=== PATIENT | female | born 1985 | race Caucasian/White ===

== ENCOUNTER → 2018-12-24 | Outpatient (CLI) | payer MEDICARE, MEDICAID ==
[~2018-12-24] MED LIST: AMOX500T PO; DOCU5LIQ PO; IBUP600T26 PO; MAPA500T17 PO; MOM30SS PO; PRENTAB9 PO; TOPA100T PO; TOPA25TA PO; TRIL600T PO; ZANT150T PO
[2018-12-24 09:46] LABS: HEMOGLOBIN 13.8 g/dl (12.0-15.5); MEAN CORPUSCULAR HEMOGLOBIN 28.4 pg (27.0-33.0); MEAN CORPUSCULAR HGB CONC 32.9 g/dl (32.0-36.5); MEAN CORPUSCULAR VOLUME 86.4 fl (80.0-96.0); PLATELET COUNT, AUTOMATED 317 10^3/uL (150-450); RED BLOOD COUNT 4.86 10^6/uL (4.00-5.40); WHITE BLOOD COUNT 7.2 10^3/uL (4.0-10.0)
[2018-12-24 10:11] LABS: ALBUMIN 4.3 GM/DL (3.2-5.2); ALT/SGPT 24 U/L (12-78); BILIRUBIN,TOTAL 0.4 MG/DL (0.2-1.0); BLOOD UREA NITROGEN 9 MG/DL (7-18); CALCIUM LEVEL 8.9 MG/DL (8.5-10.1); CARBON DIOXIDE LEVEL 28 MEQ/L (21-32); CHLORIDE LEVEL 108 MEQ/L (98-107); CHOLESTEROL LEVEL 125 MG/DL (<200); CHOLESTEROL RISK RATIO 3.378 (<5); CREATININE FOR GFR 0.81 MG/DL (0.55-1.30); FREE T4 1.13 NG/DL (0.76-1.46); GLOMERULAR FILTRATION RATE > 60.0 (>60); GLUCOSE, FASTING 94 MG/DL (70-100); HDL CHOLESTEROL 37 MG/DL (>40); LDL CHOLESTEROL 70 MG/DL (<100); NON-HDL-C 88 MG/DL; POTASSIUM SERUM 4.1 MEQ/L (3.5-5.1); SODIUM LEVEL 141 MEQ/L (136-145); TRIGLYCERIDES LEVEL 89 MG/DL (<150)
[2018-12-24 10:14] LABS: TOTAL 25(OH) VITAMIN D 17.9 NG/ML (30.0-100.0)
== END ==
LOC: M LAB 09:11
PROVIDERS: ATTEND Nurse Practitioner Family
DX: K52.9 Noninfective gastroenteritis and colitis, unspecified (principal); E66.9 Obesity, unspecified; E55.9 Vitamin D deficiency, unspecified; E07.9 Disorder of thyroid, unspecified

== ENCOUNTER → 2019-01-04 | Outpatient (REF) | payer MEDICARE, MEDICAID | LOC: M SFHCPLAZ 11:06 | PROVIDERS: ATTEND Nurse Practitioner Family | DX: K52.9 Noninfective gastroenteritis and colitis, unspecified (principal) ==

== ENCOUNTER 2019-04-17 16:21 | Emergency (ER) | payer MEDICARE, MEDICAID ==
[~2019-04-17] VITALS: Ht 165.1 cm; Wt 82.7 kg
[2019-04-17 16:22] VITALS: BP 134/72
[2019-04-17] MEDS ORDERED: TRIL150T PO (16:29)
--- NOTE | 2019-04-17 20:10 | REP ---
LEFT FOREARM, TWO VIEWS: There is no evidence of an acute fracture, dislocation or intrinsic bone disease. IMPRESSION: No fracture or dislocation. Electronically Signed by Eulalio Garcia MD 04/18/2019 10:02 A
--- NOTE | 2019-04-18 08:31 | REP ---
LEFT WRIST, FOUR VIEWS: HISTORY: None. There is no acute fracture or dislocation. The joint spaces are normal in appearance. IMPRESSION:There is no acute fracture or dislocation. Unreviewed
== END 2019-04-17 20:10 | disposition home or self-care (01) ==
LOC: M ED 16:21
DX: S63.522A Sprain of radiocarpal joint of left wrist, initial encounter (principal); S63.512A Sprain of carpal joint of left wrist, initial encounter; W18.09XA Striking against other object with subsequent fall, initial encounter; Y92.098 Other place in other non-institutional residence as the place of occurrence of the external cause; R00.0 Tachycardia, unspecified; G43.909 Migraine, unspecified, not intractable, without status migrainosus; K50.90 Crohn's disease, unspecified, without complications; Z88.8 Allergy status to other drugs, medicaments and biological substances; Z88.1 Allergy status to other antibiotic agents; Z88.5 Allergy status to narcotic agent; Z91.030 Bee allergy status; Z79.899 Other long term (current) drug therapy

== ENCOUNTER → 2019-07-10 | Outpatient (REF) | payer MEDICARE, MEDICAID ==
[~2019-07-10] MED LIST changes: +TRIL150T PO
[2019-07-10 13:26] LABS: ALBUMIN 4.7 GM/DL (3.2-5.2); ALT/SGPT 14 U/L (12-78); BILIRUBIN,TOTAL 0.5 MG/DL (0.2-1.0); BLOOD UREA NITROGEN 15 MG/DL (7-18); CALCIUM LEVEL 10.2 MG/DL (8.5-10.1); CARBON DIOXIDE LEVEL 28 MEQ/L (21-32); CHLORIDE LEVEL 107 MEQ/L (98-107); CREATININE FOR GFR 0.89 MG/DL (0.55-1.30); GLOMERULAR FILTRATION RATE > 60.0 (>60); GLUCOSE, FASTING 87 MG/DL (70-100); MAGNESIUM LEVEL 2.2 MG/DL (1.8-2.4); POTASSIUM SERUM 4.3 MEQ/L (3.5-5.1); SODIUM LEVEL 141 MEQ/L (136-145); TOTAL PROTEIN 8.1 GM/DL (6.4-8.2)
[2019-07-10 13:28] LABS: HEMATOCRIT 48.5 % (36.0-47.0); HEMOGLOBIN 15.7 g/dl (12.0-15.5); MEAN CORPUSCULAR HGB CONC 32.4 g/dl (32.0-36.5); MEAN CORPUSCULAR VOLUME 89.5 fl (80.0-96.0); PLATELET COUNT, AUTOMATED 346 10^3/uL (150-450); RED BLOOD COUNT 5.42 10^6/uL (4.00-5.40)
[2019-07-10 14:01] LABS: ERYTHROCYTE SEDIMENTATION RATE 5 mm/hr (0-20)
== END ==
LOC: M SFHCPLAZ 10:59
PROVIDERS: ATTEND Nurse Practitioner Family
DX: E55.9 Vitamin D deficiency, unspecified (principal); R51 Headache; R11.0 Nausea
CPT/HCPCS: 36415; 80053; 82306; 83735; 85027; 85652; G0463

== ENCOUNTER → 2019-10-13 | Outpatient (REF) | payer OTHER ==
[2019-10-13 12:44] LABS: ALBUMIN 4.4 GM/DL (3.2-5.2); ALT/SGPT 47 U/L (12-78); BILIRUBIN,TOTAL 0.4 MG/DL (0.2-1.0); BLOOD UREA NITROGEN 8 MG/DL (7-18); CALCIUM LEVEL 9.2 MG/DL (8.5-10.1); CARBON DIOXIDE LEVEL 31 MEQ/L (21-32); CHLORIDE LEVEL 106 MEQ/L (98-107); CREATININE FOR GFR 0.75 MG/DL (0.55-1.30); GLOMERULAR FILTRATION RATE > 60.0 (>60); GLUCOSE, FASTING 72 MG/DL (70-100); POTASSIUM SERUM 4.5 MEQ/L (3.5-5.1); SODIUM LEVEL 143 MEQ/L (136-145); TOTAL PROTEIN 7.4 GM/DL (6.4-8.2)
[2019-10-13 12:53] LABS: TOTAL 25(OH) VITAMIN D 31.3 NG/ML (30.0-100.0)
== END ==
LOC: M SFHCPLAZ 10:36
PROVIDERS: ATTEND Nurse Practitioner Family
DX: K21.9 Gastro-esophageal reflux disease without esophagitis (principal); E55.9 Vitamin D deficiency, unspecified

== ENCOUNTER → 2019-11-24 | Outpatient (CLI) | payer OTHER ==
--- NOTE | 2019-11-27 17:43 | ECGEPIP ---
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
== END ==
LOC: M EKG 09:45
PROVIDERS: ATTEND Orthopaedic Surgery Hand Surgery
DX: Z01.818 Encounter for other preprocedural examination (principal)

== ENCOUNTER → 2019-12-30 | Outpatient (REF) | payer OTHER | LOC: M PLALAB 09:07 | PROVIDERS: ATTEND Nurse Practitioner Family | DX: E55.9 Vitamin D deficiency, unspecified (principal) ==

== ENCOUNTER → 2020-01-16 | Outpatient (CLI) | payer OTHER ==
[~2020-01-16] MED LIST changes: +ACET-683 PO; +AMIT25TA PO; +AMIT75TA PO; +D-3-50003 PO; +LEVE750T5 PO; +ONDA8TAB10 PO; +PROT1TAB2 PO; +SUMA50TA2 PO; +VITA50005 PO
== END ==
LOC: M LABSMTC 10:07
PROVIDERS: ATTEND Anesthesiology
DX: Z01.818 Encounter for other preprocedural examination (principal); Z11.59 Encounter for screening for other viral diseases

== ENCOUNTER 2020-01-19 06:28 | Day surgery (SDC) | payer OTHER ==
[~2020-01-19] VITALS: Ht 165.1 cm; Wt 71.2 kg
[~2020-01-19 06:28] MED LIST changes: +LIDOCAINE 1% MDV 20ML VIAL SQ PRN; +LR 1,000 ML IV ONE
[2020-01-19] MEDS ORDERED: MIDAZOLAM INJ 2MG/2ML VIAL (J2250 PER 1MG) As Ordered ONE (07:37)
[2020-01-19] MEDS ORDERED: ONDANSETRON 4MG/2ML VIAL As Ordered ONE ×2 (07:37→08:55)
[2020-01-19] MEDS ORDERED: LIDOCAINE 2% 100MG/5ML SDV (FOR ANES.) As Ordered ONE (07:37)
[2020-01-19] MEDS ORDERED: fentaNYL 100 MCG/2 ML INJECTION (J3010) As Ordered ONE ×2 (07:37→08:55)
[2020-01-19] MEDS ORDERED: propofoL 200 MG/20 ML VIAL As Ordered ONE ×2 (07:37→08:27)
[2020-01-19] MEDS ORDERED: ACETAMINOPHEN 1000MG 100ML IV BTL (OFIRMEV) (J0131 PER 10MG) As Ordered ONE (07:37)
[2020-01-19] MEDS: BUPIVACAINE HCL 0.25% 30ML VIAL As Ordered ONE (07:56)
[2020-01-19] MEDS ORDERED: oxyCODONE 5MG TAB As Ordered ONE (08:55)
[2020-01-19] MEDS ORDERED: LR 1,000 ML IV SCH (09:00)
[2020-01-19] MEDS ORDERED: ONDANSETRON 4MG/2ML VIAL IV PRN (09:00)
[2020-01-19] MEDS: oxyCODONE 5MG TAB PO PRN ×3 (09:01→09:29)
[2020-01-19] MEDS: fentaNYL 100 MCG/2 ML INJECTION (J3010) IV PRN ×4 (09:01→09:22)
[2020-01-19] MEDS ORDERED: oxyCODONE 5MG TAB PO PRN (09:15)
[2020-01-19 10:30] VITALS: BP 126/80
--- NOTE | 2020-01-20 12:22 | RO ---
DATE OF PROCEDURE: 01/19/2020 PREOPERATIVE DIAGNOSES: Left carpal tunnel syndrome, cubital tunnel syndrome, de Quervain syndrome. POSTOPERATIVE DIAGNOSES: Left carpal tunnel syndrome, cubital tunnel syndrome, de Quervain syndrome. PROCEDURE: Left endoscopic carpal tunnel release, open cubital tunnel release, and open 1st dorsal extensor compartment release. SURGEON: Dr. Willy Monaco MOTOR ADJUSTER: None. ANESTHESIA: INDICATIONS: This is a 34-year-old female that failed nonoperative modes of treatment for the above syndromes. We discussed the risks and benefits of surgical release, including, but not limited to, infection, damage to surrounding structures, incomplete relief, and patient wishes to proceed. PREOPERATIVE ANTIBIOTICS: None. TOURNIQUET TIME: 30 minutes. COMPLICATIONS: None. BLOOD LOSS: Minimal. OPERATIVE DESCRIPTION: The patient was brought back to the operating room (OR) in the supine position. Underwent general anesthesia. The left arm was then prepped and draped in the usual fashion. We had time-out confirming site, side, and surgery. We then injected 20 mL of 0.25% Marcaine with epinephrine in a local block over the three incision areas. We then exsanguinated the limb, elevated the tourniquet to 250 mmHg. We made a transverse incision over the palmaris longus, retracted it radially, dissected sharply through the antebrachial fascia, used a two-prong skin hook to elevate, and then used the dilator and the synovial stripper. Then we entered the endoscopic camera. We identified the median nerve to see if we had a view. We then found the distal stump of the transverse carpal ligament and released this from distally to proximally. Once we were happy with complete release, we irrigated the wound thoroughly, closed with #3-0 Vicryl, #3-0 Prolene, Mastisol, Steris, gauze, and Tegaderm. We then turned our attention to the radial styloid and made a longitudinal incision along the radial styloid. Sharply dissected through subcutaneous tissues, careful to identify and preserve superficial sensory branch of the radial nerve. We then encountered the 1st dorsal extensor compartment. We released it, the most dorsal aspect, to prevent subluxation. We encountered a subsheath of the extensor pollicis longus (EPL), and this was released in addition. Once we had complete release, we irrigated the wound thoroughly, closed with #3-0 Vicryl, #3-0 Monocryl, Mastisol, Steris, and gauze. We then turned our attention to the elbow and made a longitudinal incision through the olecranon and medial epicondyle. Sharply dissected through subcutaneous tissue, careful to monitor for the medial antebrachial cutaneous nerve. We encountered the ulnar nerve at the proximal extent of the incision anterior to the triceps. We then released it proximally off the intermuscular septum and then distally through More ligament and through the superficial and deep fascia of the flexor carpi ulnaris (FCU). Once this was complete, we did a thorough neurolysis to elevate the nerve and then transpose it anteriorly over the medial epicondyle and closed More ligament behind it with a #3-0 Prolene, at which point we ranged the elbow. There were no sites of subluxation back into the tunnel or sites of compression. We irrigated the wound thoroughly, closed with #3-0 Vicryl, #3-0 Monocryl, Mastisol, Steris, gauze, and Tegaderm. We then placed a Kerlix over top and an Artis. We then deflated the tourniquet. Patient was awakened and taken to the postanesthesia care unit (PACU) in stable condition. POSTOPERATIVE PLAN: The patient will have pain control and range of motion. We will see her in 2 weeks to assess the incisions.
== END 2020-01-19 10:50 | disposition home or self-care (01) ==
LOC: M SDC 06:28
PROVIDERS: ATTEND Orthopaedic Surgery Hand Surgery
DX: G56.02 Carpal tunnel syndrome, left upper limb (principal); G56.22 Lesion of ulnar nerve, left upper limb; M65.4 Radial styloid tenosynovitis [de Quervain]; K21.9 Gastro-esophageal reflux disease without esophagitis; Z79.899 Other long term (current) drug therapy; Z91.030 Bee allergy status; Z88.8 Allergy status to other drugs, medicaments and biological substances; Z91.048 Other nonmedicinal substance allergy status
CPT/HCPCS: 25000; 29848; 64718; J0131; J2250; J2405; J3010

== ENCOUNTER → 2020-04-12 | Emergency (ER) | payer OTHER ==
[~2020-04-12] MED LIST changes: -LIDOCAINE 1% MDV 20ML VIAL SQ PRN; +LIDOCAINE 5% OINT 30 GM As Ordered ONE; +LIDOCAINE 5% OINT 30 GM ONE; -LR 1,000 ML IV ONE
--- NOTE | 2020-06-04 10:44 | REP ---
RIGHT ANKLE: FOUR VIEWS Report was delayed due to a malware attack on this facility. HISTORY: Injury. FINDINGS: Four views of the right ankle demonstrate mild anterolateral soft tissue swelling. Ankle mortise is intact. No fracture is seen. No subluxation noted. No opaque foreign body seen. IMPRESSION: Mild anterolateral soft tissue swelling. No acute bony abnormality. MTDD
--- NOTE | 2020-06-04 10:44 | REP ---
RIGHT FOOT Report was delayed due to a malware attack on this facility. HISTORY: Trauma. FINDINGS: Four views of the right foot show normal bones, joints, and soft tissue. No fracture or subluxation is seen. IMPRESSION: No fracture noted. MTDD
== END | disposition home or self-care (01) ==
LOC: M ED 16:30
DX: S99.911A Unspecified injury of right ankle, initial encounter (principal); S99.921A Unspecified injury of right foot, initial encounter; W11.XXXA Fall on and from ladder, initial encounter; Y92.9 Unspecified place or not applicable; Y93.9 Activity, unspecified; Y99.9 Unspecified external cause status; Z79.899 Other long term (current) drug therapy; Z88.8 Allergy status to other drugs, medicaments and biological substances

== ENCOUNTER 2020-07-26 21:40 | Emergency (ER) | payer OTHER ==
[~2020-07-26] VITALS: Ht 162.6 cm; Wt 78.2 kg
[~2020-07-26 21:40] MED LIST changes: -LIDOCAINE 5% OINT 30 GM As Ordered ONE; -LIDOCAINE 5% OINT 30 GM ONE
[2020-07-26] MEDS ORDERED: ONDANSETRON 4MG/2ML VIAL IV ONE (22:45)
[2020-07-26] MEDS ORDERED: KETOROLAC 30 MG/ML 1ML VIAL IV ONE (22:45)
[2020-07-26] MEDS ORDERED: NS 1,000 ML IV ONE (22:45)
[2020-07-26] MEDS ORDERED: SUCR1TAB56 (23:12)
[2020-07-26] MEDS ORDERED: KETO10TAB (23:12)
[2020-07-26] MEDS ORDERED: GABA-1171 (23:12)
[2020-07-26] MEDS ORDERED: SUMA50TA2 (23:12)
[2020-07-26 23:25] LABS: BASO % 0.3 % (0.0-1.0); EOS # 0.1 10^3/uL (0.0-0.5); EOS % 0.9 % (0.0-3.0); HEMATOCRIT 38.3 % (36.0-47.0); HEMOGLOBIN 12.4 g/dl (12.0-15.5); LYMPH # 1.5 10^3/uL (1.5-5.0); LYMPH % 17.3 % (24.0-44.0); MEAN CORPUSCULAR HEMOGLOBIN 28.4 pg (27.0-33.0); MEAN CORPUSCULAR HGB CONC 32.4 g/dl (32.0-36.5); MEAN CORPUSCULAR VOLUME 87.8 fl (80.0-96.0); MONO # 0.5 10^3/uL (0.0-0.8); MONO % 5.7 % (0.0-5.0); NEUTROPHILS # 6.7 10^3/uL (1.5-8.5); NEUTROPHILS % 75.6 % (36.0-66.0); PLATELET COUNT, AUTOMATED 256 10^3/uL (150-450); RED BLOOD COUNT 4.36 10^6/uL (4.00-5.40); WHITE BLOOD COUNT 8.9 10^3/uL (4.0-10.0)
[2020-07-26 23:56] LABS: ALBUMIN 3.8 GM/DL (3.2-5.2); ALT/SGPT 11 U/L (12-78); BILIRUBIN,DIRECT 0.1 MG/DL (0.0-0.2); BILIRUBIN,TOTAL 0.3 MG/DL (0.2-1.0); BLOOD UREA NITROGEN 8 MG/DL (7-18); CALCIUM LEVEL 8.8 MG/DL (8.5-10.1); CARBON DIOXIDE LEVEL 29 MEQ/L (21-32); CHLORIDE LEVEL 110 MEQ/L (98-107); CREATININE FOR GFR 0.65 MG/DL (0.55-1.30); GLOMERULAR FILTRATION RATE > 60.0 (>60); GLUCOSE, FASTING 97 MG/DL (70-100); POTASSIUM SERUM 4.2 MEQ/L (3.5-5.1); SODIUM LEVEL 142 MEQ/L (136-145); TOTAL PROTEIN 6.5 GM/DL (6.4-8.2)
--- NOTE | 2020-07-27 00:27 | REPVR ---
PROCEDURE INFORMATION: Exam: US Nonobstetric Pelvis; Complete Exam date and time: 07/26/2020 11:53 PM Age: 34 years old Clinical indication: Pelvic pain; Additional info: Llq pain, R/O ovarian cyst TECHNIQUE: Imaging protocol: Transabdominal pelvic nonobstetric ultrasound. Complete exam. Real time ultrasound with image documentation. COMPARISON: CR Pelvis, complete 11/08/2014 5:28 PM FINDINGS: Uterus/cervix: Uterus measures 8.8 x 4.5 x 5.8 cm. No uterine masses are seen. Endometrium measures 9 mm. No endometrial masses or fluid. Right adnexa: Ovary is normal. No mass. Normal blood flow. Left adnexa: 11 mm follicle in the left ovary. Left ovary is otherwise with normal blood flow. Intraperitoneal space: No intraperitoneal free fluid. IMPRESSION: 1. Small follicle in the left ovary. 2. Unremarkable pelvic ultrasound. Electronically signed by: Abdoulaye Waldron On 07/27/2020 00:26:54 AM
[2020-07-27] MEDS ORDERED: SIME180C PO (01:13)
--- NOTE | 2020-07-27 01:14 | REPVR ---
PROCEDURE INFORMATION: Exam: XR Complete Acute Abdomen Series Exam date and time: 07/27/2020 1:04 AM Age: 34 years old Clinical indication: Abdominal pain; Acute; Additional info: Llq pain, crohns dz TECHNIQUE: Imaging protocol: XR complete acute abdomen series, including 2 or more views of the abdomen and a single view chest. COMPARISON: No relevant prior studies available. FINDINGS: Lungs: Normal. No consolidation. Pleural space: Normal. No pneumothorax. Heart/Mediastinum: Normal. No cardiomegaly. Gastrointestinal tract: Moderate amount of fecal material throughout the colon. Nonobstructive bowel gas pattern. Intraperitoneal space: No organomegaly, mass effect, or free air. Bones/joints: Normal. No acute fracture. Soft tissues: Normal. Cosmetic piercings are noted. IMPRESSION: Mild constipation. Electronically signed by: Abdoulaye Waldron On 07/27/2020 01:13:48 AM
[2020-07-27 01:33] VITALS: BP 131/76
== END 2020-07-27 01:38 | disposition home or self-care (01) ==
LOC: M ED 21:40
DX: R10.32 Left lower quadrant pain (principal); Z79.899 Other long term (current) drug therapy; Z88.1 Allergy status to other antibiotic agents; Z88.8 Allergy status to other drugs, medicaments and biological substances; Z91.030 Bee allergy status
CPT/HCPCS: 74021; 76830; 76856; 80048; 80076; 81001; 85025; 87086; 93976; 96361; 96374; 99284; J1885; J2405

== ENCOUNTER → 2020-08-10 | Outpatient (CLI) | payer OTHER ==
[~2020-08-10] MED LIST changes: +GABA-1171; +KETO10TAB; +SIME180C PO; +SUCR1TAB56; +SUMA50TA2
[2020-08-10 12:50] LABS: BASO % 0.7 % (0.0-1.0); EOS # 0.1 10^3/uL (0.0-0.5); EOS % 1.1 % (0.0-3.0); HEMATOCRIT 37.5 % (36.0-47.0); LYMPH # 1.1 10^3/uL (1.5-5.0); LYMPH % 19.7 % (24.0-44.0); MEAN CORPUSCULAR HEMOGLOBIN 28.6 pg (27.0-33.0); MEAN CORPUSCULAR VOLUME 89.3 fl (80.0-96.0); MONO # 0.4 10^3/uL (0.0-0.8); MONO % 7.2 % (0.0-5.0); NEUTROPHILS # 3.9 10^3/uL (1.5-8.5); NEUTROPHILS % 70.9 % (36.0-66.0); PLATELET COUNT, AUTOMATED 260 10^3/uL (150-450); WHITE BLOOD COUNT 5.5 10^3/uL (4.0-10.0)
[2020-08-10 13:26] LABS: ALBUMIN 3.9 GM/DL (3.2-5.2); ALT/SGPT 15 U/L (12-78); AMYLASE 37 U/L (25-115); BILIRUBIN,TOTAL 0.7 MG/DL (0.2-1.0); BLOOD UREA NITROGEN 6 MG/DL (7-18); CARBON DIOXIDE LEVEL 29 MEQ/L (21-32); CHLORIDE LEVEL 106 MEQ/L (98-107); CREATININE FOR GFR 0.68 MG/DL (0.55-1.30); GLOMERULAR FILTRATION RATE > 60.0 (>60); GLUCOSE, FASTING 86 MG/DL (70-100); LIPASE 108 U/L (73-393); POTASSIUM SERUM 4.2 MEQ/L (3.5-5.1); SODIUM LEVEL 139 MEQ/L (136-145); TOTAL PROTEIN 6.9 GM/DL (6.4-8.2)
[2020-08-10 14:16] LABS: APPEARANCE, URINE HAZY (CLEAR); BACTERIA, URINE AUTO 1+ (NEGATIVE); BILIRUBIN, URINE AUTO NEGATIVE (NEGATIVE); BLOOD, URINE BLOOD NEGATIVE (NEGATIVE); COLOR, URINE YELLOW (YELLOW); GLUCOSE, URINE (UA) AUTO NEGATIVE (NEGATIVE); KETONE, URINE AUTO TRACE mg/dL (NEGATIVE); LEUKOCYTE ESTERASE, URINE AUTO 1+ (NEGATIVE); MUCUS, URINE SMALL (NEGATIVE); NITRITE, URINE AUTO NEGATIVE (NEGATIVE); PROTEIN, URINE AUTO NEGATIVE (NEGATIVE); RBC, URINE AUTO 1 /HPF (0-3); SPECIFIC GRAVITY URINE AUTO 1.013 (1.002-1.035); SQUAMOUS EPITHELIAL CELL UR AU 3 /HPF (0-6); UROBILINOGEN, URINE AUTO 0.2 mg/dL (0.0-2.0); WBC, URINE AUTO 1 /HPF (0-3)
== END ==
LOC: M LAB 11:59
PROVIDERS: ATTEND Nurse Practitioner Family
DX: R10.30 Lower abdominal pain, unspecified (principal); R13.10 Dysphagia, unspecified; R30.0 Dysuria

== ENCOUNTER → 2020-08-20 | Outpatient (CLI) | payer OTHER ==
--- NOTE | 2020-08-20 10:27 | REP ---
INDICATION: R10.13 EPIGASTRIC PAIN. COMPARISON: Comparison right upper quadrant sonography May 08, 2013.. TECHNIQUE: Right upper quadrant sonography. FINDINGS: Scanning through the right upper quadrant of the abdomen demonstrates a normal sized, thin-walled gallbladder without evidence of stone or polyp. Common bile duct is normal measuring 0.5 cm in greatest diameter. No focal liver lesion is seen. Liver size is normal. No pancreatic abnormality is observed. No right renal abnormality is seen. There is no evidence of ascites. The right kidney measures 12.0 x 4.5 x 3.9 cm. IMPRESSION: Negative right upper quadrant sonography. <Electronically signed by Jhoan Cortes > 08/20/20 1020
== END ==
LOC: M WHC 09:32
PROVIDERS: ATTEND Nurse Practitioner Family
DX: R10.13 Epigastric pain (principal)

== ENCOUNTER → 2020-09-30 | Outpatient (CLI) | payer OTHER ==
[~2020-09-30] MED LIST changes: -AMIT25TA PO; +AMIT25TA17 PO
[2020-09-30 12:18] LABS: BASO % 0.8 % (0.0-1.0); EOS # 0.1 10^3/uL (0.0-0.5); EOS % 1.9 % (0.0-3.0); HEMATOCRIT 42.4 % (36.0-47.0); HEMOGLOBIN 13.6 g/dl (12.0-15.5); LYMPH # 1.3 10^3/uL (1.5-5.0); LYMPH % 26.3 % (24.0-44.0); MEAN CORPUSCULAR HEMOGLOBIN 28.4 pg (27.0-33.0); MEAN CORPUSCULAR HGB CONC 32.1 g/dl (32.0-36.5); MEAN CORPUSCULAR VOLUME 88.5 fl (80.0-96.0); MONO # 0.3 10^3/uL (0.0-0.8); MONO % 6.7 % (0.0-5.0); NEUTROPHILS # 3.1 10^3/uL (1.5-8.5); NEUTROPHILS % 63.9 % (36.0-66.0); PLATELET COUNT, AUTOMATED 285 10^3/uL (150-450); RED BLOOD COUNT 4.79 10^6/uL (4.00-5.40); WHITE BLOOD COUNT 4.8 10^3/uL (4.0-10.0)
[2020-09-30 12:30] LABS: C REACTIVE PROTEIN QUANTITATIV < 0.30 MG/DL (0.00-0.30); RHEUMATOID FACTOR QUANT < 10.0 IU/ML (<15.0); URIC ACID 4.8 MG/DL (2.6-6.0)
[2020-09-30 13:03] LABS: ERYTHROCYTE SEDIMENTATION RATE 4 mm/hr (0-20)
[2020-10-06 15:12] LABS: ANTINUCLEAR ANTIBODIES DIRECT Negative (Negative); HLA-B27 Negative (.); Lyme Disease IgG/IgM Antibodie <0.91 ISR (0.00-0.90); Lyme Disease IgM Ab Quantitati <0.80 index (0.00-0.79)
== END ==
LOC: M PLALAB 09:03
PROVIDERS: ATTEND Physician Assistant Surgical
DX: S93.401D Sprain of unspecified ligament of right ankle, subsequent encounter (principal); X58.XXXD Exposure to other specified factors, subsequent encounter; Y92.89 Other specified places as the place of occurrence of the external cause; Y93.89 Activity, other specified; Y99.8 Other external cause status

== ENCOUNTER 2020-11-01 11:21 | Emergency (ER) | payer OTHER ==
--- OUTSIDE RECORDS SUMMARY | 2020-11-01 12:11 | CCD | Continuity of Care Document ---
Author Author Avis TAM PA-C Organization Unknown Address [address] [address] Phone [phone] Care Team Providers Care Rust Proofer Name Role Phone Shawnee Rivas DEANDRE AUTM [phone] CathyalexandraduglasMilagros mottadi Kimberly PHILLIP-C AUTM Problems Active Problems Provider Date Contusion of hand Onset: 07/01/1999 Essential hypertension Nae Martell PA-C Onset: 04/21 Social History Type Date Description Comments Sex Unknown ETOH Use Denies alcohol use Tobacco Use Start: Unknown Denies Smoking Allergies, Adverse Reactions, Alerts Active Allergies Reaction Severity Comments Date Ultram 04/21/2019 Cortisporin 04/21/2019 Neosporin Ointment 9 Reglin 07/13/2020 Medications Active Medications SIG Qnty Indications Ordering Provide r Date Gabapentin 100mg Capsules 1 po at bedtime for 1 week, then increase to 1 tab po bid for 2nd week, then increase to 1 tab po tid for 3rd week 60caps M54.5 Aryan Tam MD 0 Keppra 750mg Tablets Unknown Nortriptyline HCL 75mg Capsules Unknown History Medications Bactrim 400-80mg Tablets take 1 by mouth twice a day for 10 days 20tabs S93.401D Gerard Blackmon MD 1 - 07/13/2020 Immunizations Description No Information Available Vital Signs Date Vital Result Comment 07/13/2020 10:27am Body Temperature 97.5 F Height 65 inches 5'5" Weight 152.00 lb BMI (Body Mass Index) 25.3 kg/m2 06/15/2020 8:37am Body Temperature 96.3 F Results Test Acquired Date Facility Test Result H/L Range Note CBC With Differential 09/30/2020 [facility] [address] [place] [address] [phone] - White Blood Count 4.8 10 Normal 4.0-10.0 Red Blood Count 4.79 10 Normal 4.00-5.40 Hemoglobin 13.6 g/dL Normal 12.0-15.5 Hematocrit 42.4 % Normal 36.0-47.0 Mean Corpuscular Volume 88.5 fl Normal 80.0-96.0 Mean Corpuscular Hemoglobin 28.4 pg Normal 27.0-33.0 Mean Corpuscular HGB Conc 32.1 g/dL Normal 32.0-36.5 Red Cell Distribution Width 12.7 % Normal 11.5-14.5 Platelet Count, Automated 285 10 Normal 150-450 Neutrophils % 63.9 % Normal 36.0-66.0 Lymph % 26.3 % Normal 24.0-44.0 Morris % 6.7 % High 0.0-5.0 Eos % 1.9 % Normal 0.0-3.0 Baso % 0.8 % Normal 0.0-1.0 Immature Granulocyte % 0.4 % Normal 0-3.0 Nucleated Red Blood Cell % 0.0 % Normal 0-0 Neutrophils # 3.1 10 Normal 1.5-8.5 Lymph # 1.3 10 Low 1.5-5.0 Morris # 0.3 10 Normal 0.0-0.8 Eos # 0.1 10 Normal 0.0-0.5 Baso # 0.0 10 Normal 0.0-0.2 Laboratory test finding 09/30/2020 [facility] [address] [place] [address] [phone] - C Reactive Protein Quantitativ < 0.30 mg/dL Normal 0.0 0-0.30 1 Erythrocyte Sedimentation Rate 4 mm/hr Normal 0-20 Laboratory test finding 09/30/2020 [facility] [address] [place] [address] [phone])- - Rheumatoid Factor Quant < 10.0 IU/mL Normal <15.0 2 Uric Acid 4.8 mg/dL Normal 2.6-6.0 3 1 note:<nlbl:demographic_chang ed> 2 note:<nlbl:demographic_chang ed> 3 note:<nlbl:demographic_chang ed> Procedures Date Code Description Status 07/23/2020 74348 X-Ray Spine Lumbosacral Complete Inc Bending Views Min Of 6 Completed 07/13/2020 01772 Nerve Conduction 9-10 Studies Co mpleted 07/13/2020 89687 Needle Electromyography,Complete Five Or More Muscles Studied Completed 06/11/2020 19876 Apply Cast Short Arm Completed 06/07/2020 92263 MRI Lower Extremity Any Joint Co mpleted 06/07/2020 79694 MRI Lower Extremity Other Than J oint Completed 04/20/2020 99152 X-Ray Foot Complete Completed 04/20/2020 86158 X-Ray Ankle Complete Completed 04/13/2020 30178 X-Ray Foot Complete Completed 04/13/2020 27604 X-Ray Ankle Complete Completed Medical Devices Description No Information Available Encounters Type Date Location Provider Dx Diagnosis [facility] S93.401 D Sprain of unspecified ligament of right ankle, subs encntr S93.601D Unspecified sprain of right foot, subsequent encounter M54.17 Radiculopathy, lumbosacral r egion 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 M25.532 Pain in left wrist M79.642 Pain in left hand M79.632 Pain in left forearm Office Visit 07/13/2020 [facility] M54.5 Low back pain R20.2 Paresthesia of skin M54.16 Radiculopathy, lumbar region Office Visit 06/22/2020 4:[place]p [facility] S93.401 D Sprain of unspecified ligament of right ankle, subs encntr S93.601D Unspecified sprain of right foot, subsequent encounter L03.115 Cellulitis of right lower li mb Office Visit 06/15/2020 [facility] S93.401 D Sprain of unspecified ligament of right ankle, subs encntr S93.601D Unspecified sprain of right foot, subsequent encounter L03.115 Cellulitis of right lower li mb Office Visit 06/11/2020 3:00p Nicole Andres P.A. M25.532 Pain in left wrist M79.642 Pain in left hand M79.632 Pain in left forearm Z47.89 Encounter for other orthoped ic aftercare Office Visit 04/26/2020 11:30a Nicole Andres P.A. M79.642 Pain in left hand M25.532 Pain in left wrist M79.632 Pain in left forearm Office Visit 04/20/2020 8[place] S93.401 D Sprain of unspecified ligament of right ankle, subs encntr S93.601D Unspecified sprain of right foot, subsequent encounter Office Visit 04/13/2020 10:[place]a [facility] S93.401 A Sprain of unspecified ligament of right ankle, init encntr S93.601A Unspecified sprain of right foot, initial encounter Assessments Date Code Description Provider 09/30/2020 S93.401D Sprain of unspecifie d ligament of right ankle, subsequent encounter Vanita Tam PA-C 09/30/2020 S93.601D Unspecified sprain of right foot , subsequent encounter Vanita Tam PA-C 09/30/2020 M54.17 Radiculopathy, lumbosacral regio n Vanita Tam PA-C 09/30/2020 M43.07 Spondylolysis, lumbosacral regio n Vanita Tam PA-C 07/23/2020 M51.36 Other intervertebral disc degene ration, lumbar region Vanita Tam PA-C 07/23/2020 M54.17 Radiculopathy, lumbosacral regio n SONIA Decker-C 07/16/2020 M25.532 Pain in left wrist Jaret Penaloza, P.A. 07/16/2020 M79.642 Pain in left hand Jaret rodriguez, P.A. 07/16/2020 M79.632 Pain in left forearm Jaret Andres P.A. 07/13/2020 M54.5 Low back pain Meng Cardozo MD 07/13/2020 R20.2 Paresthesia of skin Meng mcdowell MD 07/13/2020 M54.16 Radiculopathy, lumbar region How alexandra Cardozo MD 06/22/2020 S93.401D Sprain of unspecifie d ligament of right ankle, subsequent encounter VINAYAK DeckerC 06/22/2020 S93.601D Unspecified sprain of right foot , subsequent encounter VINAYAK DeckerC 06/22/2020 L03.115 Cellulitis of right lower limb SONIA Barclay-C 06/15/2020 S93.401D Sprain of unspecifie d ligament of right ankle, subsequent encounter VINAYAK DeckerC 06/15/2020 S93.601D Unspecified sprain of right foot , subsequent encounter VINAYAK DeckerC 06/15/2020 L03.115 Cellulitis of right lower limb SONIA Barclay-C 06/11/2020 M25.532 Pain in left wrist Jaret Penaloza, P.A. 06/11/2020 M79.642 Pain in left hand Jaret rodriguez, P.A. 06/11/2020 M79.632 Pain in left forearm Jaret Andres, P.A. 06/11/2020 Z47.89 Encounter for other orthopedic a ftercare Jaret Andres, P.A. 06/07/2020 S93.601A Unspecified sprain of right foot , initial encounter Carolina Perkins MD 06/07/2020 S93.401A Sprain of unspecifie d ligament of right ankle, initial encounter Carolina Perkins MD 06/07/2020 S93.401A Sprain of unspecifie d ligament of right ankle, initial encounter MRI 06/07/2020 S93.601A Unspecified sprain of right foot , initial encounter MRI 04/26/2020 M25.532 Pain in left wrist Jaret Penaloza, P.A. 04/26/2020 M79.642 Pain in left hand Jaret rodriguez P.A. 04/26/2020 M25.532 Pain in left wrist Jaret Penaloza, P.A. 04/26/2020 M79.632 Pain in left forearm Jaret Andres, P.A. 04/20/2020 S93.401D Sprain of unspecifie d ligament of right ankle, subsequent encounter Vanita Tam PA-C 04/20/2020 S93.601D Unspecified sprain of right foot , subsequent encounter Vanita Tam PA-C 04/13/2020 S93.401A Sprain of unspecifie d ligament of right ankle, initial encounter Vanita Tam PA-C 04/13/2020 S93.601A Unspecified sprain of right foot , initial encounter Vanita Tam PA-C Plan of Treatment Future Appointment(s):* 10/21/2020 2:00 pm - Vanita Tam PA-C at [facility] 09/30/2020 - Vanita Tam PA-C* S93.401D Sprain of unspecified ligament of right ankle, subsequent encounter* Follow up:* with [facility] in 3-4 weeks TELEMED * S93.601D Unspecified sprain of right foot, subsequent encounter * M54.17 Radiculopathy, lumbosacral region * 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 LD Created [address] [place] [address] [address] [place] [phone] Fish, Vanita L, PA-C REF NO AUTH REQUIRED FOR REF TO DR VERA F OR EMG TO TRANS NT Created [address] [address] [phone] Vanita Tam PA-C EMG NO AUTH REQUIRED TO SCHEDULING NT Creat ed [address] [address] [phone] Vanita Tam PA-C MRI APPROVED PER [employer] FOR MRI OF RIGHT ANKLE (43358) TO X-RAY. DG Created [address] [address] [phone] Jaret Andres, SONIA [id number] [place] Wrist W/Spica ([employer]). No authorization required. Covered in full. AC Created [address] [address] [phone] Vanita Tam PA-C MRI APPROVED PER [employer] FOR MRI OF RIGHT FOOT (82088) TO X- RAY. DG Created [address] [address] [phone]
--- OUTSIDE RECORDS SUMMARY | 2020-11-01 12:11 | CCD | Summary of Care ---
Author Author [facility] Organization [facility] Address Unknown Phone Unavailable Care Team Providers Care [employer] Name Role Phone Shawnee Rivas PCP Reason for Visit * Procedure/Treatment (STAT) Referred By Contact Referred To Contact Status Reason Specialty Diagnoses / Procedures Alejandro Mills MD [address] [place] [address], [address] [place] [phone] Email: [email or web address] [address] [place] [address] Authorized Specialty Services Neurology / Diagnoses Required Infusion Therapy Intractable migraine with aura without status migrainosus Encounter Details Care Team Description Date Type Department Hortensia Conroy MD [address] [place] [address] [phone] Chronic migraine (Primary Dx) 10/25/2020 Procedure visit [facility] at [address] [place] [phone] Allergies Comments Active Allergy Reactions Severity Noted Date Throat swelling/lips/face Bee Venom Swelling High 05/16/2019 Neomycin-Bacitracin Rash Low 04/10/2019 Zn-Polymyx Metoclopramide Swelling 04/10/2019 Throat/mouth swelling Tramadol Hcl Swelling High 04/10/2019 documented as of this encounter (statuses as of 10/25/2020) Medications End Date Status Medication Sig Dispensed Refills Start Date Active omeprazole (PRILOSEC) 40 Take 40 mg by 2 01/16201 MG capsule mouth Two 9 Times Daily Active Cholecalciferol (VITAMIN Take 50,000 0 D) 2000 units tablet Units by mouth once a week Active Acetaminophen 500 MG Oral Take 1,000 mg 0 Tablet (TYLENOL) by mouth every 6 (six) hours as needed for Pain Active oxyCODONE-Acetaminophen 1 tablet as 0 5-325 MG Oral Tablet needed 0 (PERCOCET) Active Riboflavin 400 MG Oral Take 400 mg 90 each 3 CapsuleIndications: by mouth 0 Intractable migraine with daily aura without status migrainosus, Chronic migraine without aura without status migrainosus, not intractable Active Ondansetron HCl 4 MG Oral Take 1 tablet 20 tablet 12 Tablet by mouth 0 (ZOFRAN)Indications: every 8 Intractable migraine with (eight) hours aura without status as needed migrainosus, Chronic for Nausea migraine without aura without status migrainosus, not intractable Active Sucralfate 1 GM Oral Take 1 g by 0 Tablet (CARAFATE) mouth Three 0 times daily as needed 07/21/2021 Active Amitriptyline HCl 50 MG Take 1.5 45 tablet 11 Oral Tablet tablets by 0 (ELAVIL)Indications: mouth nightly Intractable migraine with aura without status migrainosus 07/21/2021 Active SUMAtriptan Succinate 50 Take 2 20 tablet 3 1 MG Oral Tablet tablets by 0 (IMITREX)Indications: mouth as Chronic migraine without needed for aura without status Migraine migrainosus, not intractable Active levETIRAcetam 750 MG Oral TAKE ONE 60 tablet 2 Tablet TABLET BY 1 (KEPPRA)Indications: MOUTH TWICE A Nonintractable epilepsy DAY without status epilepticus, unspecified epilepsy type documented as of this encounter (statuses as of 10/25/2020) Active Problems Problem Noted Date Medication overuse headache 07/29/2019 Concussion with loss of consciousness of 30 minutes o r less 07/29/2019 Family history of chromosomal abnormality 12/15/2013 Epilepsy Migraine with aura documented as of this encounter (statuses as of 10/25/2020) Social History Date Tobacco Use Types Packs/Day Years Used Never Smoker 0 Smokeless Tobacco: Never Used Drinks/Week oz/Week Comments Alcohol Use Not Currently Sex Assigned at Date Recorded Female 04/10/2019 1:31 PM EDT Date Recorded COVID-19 Exposure Response 10/25/2020 2:43 PM EST In the last month, have you been in contact with No / Unsure someone who was confirmed or suspected to have Coronavirus / COVID-19? documented as of this encounter Last Filed Vital Signs Not on filedocumented in this encounter Progress Notes * Hortensia Conroy MD - 10/25/2020 2:45 PM EST [facility] Date Of Service: 10/25/2020 Diagnosis: Chronic Migraine History: Avis is a 35 y.o. year old Female with chronic migraine headaches who has failed multiple medical interventions. This is her third Botox. Botox is giv ing her only few weeks of relief. Risk of Botox therapy were explained, including neck pain and/or weakness,headac he, eye lid droopiness, facial muscle weakness, and hypersensitivity. Patient u nderstands risks and wishes to proceed. The patient was advised that Botox Injec tion may not be effective in relieving the chronic headaches. The patient has f ton multiple interventions, so I agree that Botox is the most appropriate natalio tment. Botulinum toxin concentrations, 5 units per .1 cc. Under sterile and controlled conditions using aseptic technique, botulinum toxin type A was administered. A 30 gauge needle was used. The following muscles we re injected. 1. Right Frontalis, 2 sites, 5 units one site and 10 units the second for a tota l of 15 units. 2. Left Frontalis, 2 sites, 5 units one site and 10 units the second for a tota l of 15 units. 3. Right Manager Target, 1 site, 5 units per site for a total of 5 units. 4. Left Manager Target, 1 site, 5 units per site for a total of 5 units. 5. Procerus, 1 site, 5 units per site for a total of 5 units. 6. Right Temporalis, 4 sites, 5 units per site except for 1 of 10 units for a to bebeto of 25 units. 7. Left Temporalis, 4 sites, 5 units per site except for 1 of 10 units for a tot al of 25 units. 8. Right Occipitalis, 3 sites, 5 units per site for a total of 15 units. 9. Left Occipitalis, 3 sites, 5 units per site for a total of 15 units. 10. Right Cervical Paraspinal, 2 sites, 5 units per site for a total of 10 units . 11. Left Cervical Paraspinal, 2 sites, 5 units per site for a total of 10 units. 12. Right Trapezius, 3 sites, 5 units per site except for 1 of 10 units for a to bebeto of 20 units. 13. Left Trapezius, 3 sites, 5 units per site except for 1 of 10 units for a tot al of 20 units. In all, 185 units of botulinum toxin were injected and 15 units were discarded. The patient tolerated the procedure without adverse side effects. Post inject ion instructions are given. She will return for a reevaluation and treatment in 3 months. documented in this encounter Plan of Treatment Care Team Description Date Type Specialty Sondra Ryan MD [address] [place] [address] [place] [phone] 11/22/2020 Office Visit Neurology Hortensia Conroy MD [address] [address] 01/31/2021 Procedure visit Infusion Therapy Health Maintenance Due Date Last Done Comments MMR Vaccines (1 of - 1986 Standard series) Varicella Vaccines (1 of 1986 2 - 2-dose childhood series) DTaP,Tdap,and Td Vaccines 1992 (1 - Tdap) Influenza Vaccine 06/10/2020 Cervical Cancer Screening 05/27/2024 05/27/2019, 5 years 04/10/2019 Pneumococcal Vaccine: 65+ 2050 Years (1 of 1 - PPSV23) HIV Screening Completed 04/10/2019 HIB Vaccines Aged Out No longer eligible based on patient's age to complete this topic Hepatitis A Vaccines Aged Out No longer eligibl e based on patient's age to complete this topic Hepatitis B Vaccines Aged Out No longer eligibl e based on patient's age to complete this topic IPV Vaccines Aged Out No longer eligible based on patient's age to complete this topic Pneumococcal Vaccine: Aged Out No longer eligib le based on patient's age to Pediatrics (0 to 5 Years) complete this topic and At-Risk Patients (6 to 64 Years) documented as of this encounter Results Not on filedocumented in this encounter Visit Diagnoses Diagnosis Chronic migraine - Primary Chronic migraine without aura, without mention of intractable migraine without mention of status migrainosus documented in this encounter
--- OUTSIDE RECORDS SUMMARY | 2020-11-01 12:11 | CCD | Continuity of Care Document ---
Author Author Avis SHELTON PA-C Organization Unknown Address [address] [address] Phone [phone] Care Team Providers Care Machine Feathered[employer] Red[employer] Name Role Phone Shawnee Rivas DEANDRE AUTM [phone] CathyalexandraduglasMilagros mottadi Kimberly PHILLIP-C AUTM [phone] Problems Active Problems Provider Date Contusion of [...] tid for 3rd week 60caps M54.5 Aryan Shelton MD 0 Keppra 750mg Tablets Unknown Nortriptyline [...] H/L Range Note CBC With Differential 09/30/[address] [address] (315)- - White Blood Count 4.8 10 Normal [...] 36.0-66.0 Lymph % 26.3 % Normal 24.0-44.0 [place] % 6.7 % High 0.0-5.0 Eos % 1.9 % Normal 0.0-3.0 Baso % 0.8 % Normal 0.0-1.0 Immature Granulocyte % 0.4 % Normal 0-3.0 Nucleated Red Blood Cell % 0.0 % Normal 0-0 Neutrophils # 3.1 10 Normal 1.5-8.5 Lymph # 1.3 10 Low 1.5-5.0 [place] # 0.3 10 Normal 0.0-0.8 Eos # 0.1 10 Normal 0.0-0.5 Baso # 0.0 10 Normal 0.0-0.2 Laboratory test finding 09/30/2020 [facility] [address] [place] [address] (315)- - C Reactive Protein Quantitativ < 0.30 mg/dL Normal 0.0 0-0.30 1 Erythrocyte Sedimentation Rate 4 mm/hr Normal 0-20 Antinuclear Antibodies 09/30/[address] [address] (315)- - Antinuclear Antibodies Direct Negative Normal Negati ve 2 Laboratory test finding 09/30/2020 [facility] [address] [place] [address] (315)- - Rheumatoid Factor Quant < 10.0 IU/mL Normal <15.0 3 Uric Acid 4.8 mg/dL Normal 2.6-6.0 4 Lyme Disease SCRN With Confirm 09/30/2020 [facility] [address] [place] [address] (315)- - Lyme Disease IgG/IgM Antibodie <0.91 ISR Normal 0.00- 0.90 5 Lyme Disease IgM Ab Quantitati <0.80 index Normal 0.00-0.79 6 Laboratory test finding 09/30/2020 [facility] [address] [place] [address] (315)- - Hla-B27 Negative Normal . 7 1 note:<nlbl:demographic_chang ed> 2 Performed at: [address] [id number] Strategic Procurement Manager: Anny Woodard MD, Phone: [phone] Performed at: [address] [place] [id number] Strategic Procurement Manager: Tapan Giraldo PhD, Phone: [phone] 3 note:<nlbl:demographic_chang ed> 4 note:<nlbl:demographic_chang ed> 5 Negative <0.91 Equivocal 0.91 - 1.09 Positive >1.09 6 Negative <0.80 Equivocal 0.80 - 1.19 Positive >1.19 . IgM levels may peak at 3-6 weeks post infection, then gradually decline. 7 HLA-B*27 Negative B27 allele interpretation for all loci based on IMGT/HLA database version 3.38 This test was developed and its performance characteristics determined by [facility]. It has not been cleared or approved by the Food and Drug Administration. [facility] CLIA ID Number [id number] . This test was performed using PCR (Polymerase Chain Reaction)/SSOP (Sequence Specific Oligonucleotide Probes) technique. SBT (Sequence Based Typing) and/or SSP (Sequence Specific Primers) may be used as supplemental methods when necessary. Please contact HLA Customer Service at if you have any questions. . Director of HLA Laboratory Dr Tapan Giraldo, PhD Procedures Date Code Description Status 07/23/2020 95114 X-Ray Spine Lumbosacral Complete Inc Bending Views Min Of 6 Completed 07/13/2020 22742 Nerve Conduction 9-10 Studies Co mpleted 07/13/2020 44489 Needle Electromyography,Complete Five Or More Muscles Studied Completed 06/11/2020 12840 Apply Cast Short Arm Completed 06/07/2020 77188 MRI Lower Extremity Any Joint Co mpleted 06/07/2020 01740 MRI Lower Extremity Other Than J oint Completed 04/20/2020 39376 X-Ray Foot Complete Completed 04/20/2020 30791 X-Ray Ankle Complete Completed 04/13/2020 12853 X-Ray Foot Complete Completed 04/13/2020 75475 X-Ray Ankle Complete Completed Medical Devices Description No Information Available Encounters Type Date Location Provider Dx Diagnosis Office Visit 09/30/2020 8:30a Nicole Shelton PA-C S93.401 D Sprain of unspecified ligament of right ankle, subs encntr S93.601D Unspecified sprain of right foot, subsequent encounter M54.17 Radiculopathy, lumbosacral r egion 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 M25.532 Pain in left wrist M79.642 Pain in left hand M79.632 Pain in left forearm Office Visit 07/13/2020 9:00a [place] Cardozo MD M54.5 Low back pain R20.2 Paresthesia of skin M54.16 Radiculopathy, lumbar region Office Visit 06/22/2020 4:45p [place] Shel[place] PA-C S93.401 D Sprain of unspecified ligament of right ankle, subs encntr S93.601D Unspecified sprain of right foot, subsequent encounter L03.115 Cellulitis of right lower li mb Office Visit 06/15/2020 8:30a Nicole Shelton PA-C S93.401 D Sprain of unspecified ligament of right ankle, subs encntr S93.601D Unspecified sprain of right foot, subsequent encounter L03.115 Cellulitis of right lower li mb Office Visit 06/11/2020 3:00p Elijah Reid.ACamila M25.532 Pain in left wrist M79.642 Pain in left hand M79.632 Pain in left forearm Z47.89 Encounter for other orthoped ic aftercare Office Visit 04/26/2020 11:30a Elijah Reid.A. M79.642 Pain in left hand M25.532 Pain in left wrist M79.632 Pain in left forearm Office Visit 04/20/2020 8:30a Nicole Shelton PA-C S93.401 D Sprain of unspecified ligament of right ankle, subs encntr S93.601D Unspecified sprain of right foot, subsequent encounter Office Visit 04/13/2020 10:15a Nicole Shelton PA-C S93.401 A Sprain of unspecified ligament of right ankle, init encntr S93.601A Unspecified sprain of right foot, initial encounter Assessments Date Code Description Provider 09/30/2020 S93.401D Sprain of unspecifie d ligament of right ankle, subsequent encounter Vanita Shelton PA-C 09/30/2020 S93.601D Unspecified sprain of right foot , subsequent encounter Vanita Shelton PA-C 09/30/2020 M54.17 Radiculopathy, lumbosacral regio n VINAYAK [place] 09/30/2020 M43.07 Spondylolysis, lumbosacral regio n SONIA [place]-C 07/23/2020 M51.36 Other intervertebral disc degene ration, lumbar region VINAYAK [place] 07/23/2020 M54.17 Radiculopathy, lumbosacral regio n VINAYAK [place] 07/16/2020 M25.532 Pain in left wrist Jaret Penaloza, Gilbert 07/16/2020 M79.642 Pain in left hand Jaret rodriguez P.A. 07/16/2020 M79.632 Pain in left forearm Elijah Ramirez.A. 07/13/2020 M54.5 Low back pain Meng Cardozo MD 07/13/2020 R20.2 Paresthesia of skin Meng mcdowell MD 07/13/2020 M54.16 Radiculopathy, lumbar region How alexandra Cardozo MD 06/22/2020 S93.401D Sprain of unspecifie d ligament of right ankle, subsequent encounter Vanita Shelton PA-C 06/22/2020 S93.601D Unspecified sprain of right foot , subsequent encounter SONIA [place]-C 06/22/2020 L03.115 Cellulitis of right lower limb Bambi agustin StroudCamila Shelton PA-C 06/15/2020 S93.401D Sprain of unspecifie d ligament of right ankle, subsequent encounter SONIA [place]-C 06/15/2020 S93.601D Unspecified sprain of right foot , subsequent encounter Vanita Shelton PA-C 06/15/2020 L03.115 Cellulitis of right lower limb Bambi velez MaximusCamila Shelton PA-C 06/11/2020 M25.532 Pain in left wrist Jaret Penaloza, P.A. 06/11/2020 M79.642 Pain in left hand Jaret rodriguez, P.A. 06/11/2020 M79.632 Pain in left forearm Jaret Andres P.A. 06/11/2020 Z47.89 Encounter for other orthopedic [...] M79.632 Pain in left forearm Jaret Andres, Elijah.A. 04/20/2020 S93.401D Sprain of unspecifie d ligament of right ankle, subsequent encounter Vanita Shelton PA-C 04/20/2020 S93.601D Unspecified sprain of right foot , subsequent encounter Vanita Shelton PA-C 04/13/2020 S93.401A Sprain of unspecifie d ligament of right ankle, initial encounter Vanita Shelton PA-C 04/13/2020 S93.601A Unspecified sprain of right foot , initial encounter Vanita Shelton PA-C Plan of Treatment Future Appointment(s):* 10/21/2020 2:00 pm - Vanita Shelton PA-C at [place] 09/30/2020 - Vanita Shelton PA-C* S93.401D Sprain of unspecified ligament of right ankle, subsequent encounter* Follow up:* with [facility] in 3-4 weeks TELEMED * S93.601D Unspecified sprain of right foot, subsequent encounter * M54.17 Radiculopathy, lumbosacral region * 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 LD Created [address] [place] [address] [phone] Vanita Shelton PA-C REF NO AUTH REQUIRED FOR REF TO DR VERA F OR EMG TO TRANS NT Created [address] [place] [address] [phone] Vanita Shelton PA-C EMG NO AUTH REQUIRED TO SCHEDULING NT Creat ed [address] [address] [phone] Vanita Shelton PA-C MRI APPROVED PER [employer] FOR MRI OF RIGHT ANKLE (81060) TO X-RAY. DG Created [address] [address] [phone] Jaret Andres, SONIA L3908 [place] Wrist W/Spica (Ots Fit). No authorization required. Covered in full. AC Created [address] [address] [phone] Vanita Shelton PA-C MRI APPROVED PER [facility] FOR MRI OF RIGHT FOOT (05[address]) TO X- RAY. DG Created [address] [address] [phone]
--- OUTSIDE RECORDS SUMMARY | 2020-11-01 12:11 | CCD | Continuity of Care Document ---
Author Author Avis SHELTON PA-C Organization Unknown Address [address] [address] Phone [phone] Care Team Providers Care Sales Coordinator Name Role Phone Shawnee Rivas DEANDRE AUTM [phone] CathyalexandraduglasMilagros mottadi Kimberly PHILLIP-C AUTM [phone] Problems Active Problems Provider Date Contusion of [...] H/L Range Note CBC With Differential 09/30/[address] [address] (315)- - White Blood Count 4.8 10 [...] 36.0-66.0 Lymph % 26.3 % Normal 24.0-44.0 [place] % 6.7 % High 0.0-5.0 Eos % 1.9 % Normal 0.0-3.0 Baso % 0.8 % Normal 0.0-1.0 Immature Granulocyte % 0.4 % Normal 0-3.0 Nucleated Red Blood Cell % 0.0 % Normal 0-0 Neutrophils # 3.1 10 Normal 1.5-8.5 Lymph # 1.3 10 Low 1.5-5.0 [place] # 0.3 10 Normal 0.0-0.8 Eos # 0.1 10 Normal 0.0-0.5 Baso # 0.0 10 Normal 0.0-0.2 Laboratory test finding 09/30/2020 [facility] [address] [place] [address] (315)- - C Reactive Protein Quantitativ < 0.30 mg/dL Normal 0.0 0-0.30 1 Erythrocyte Sedimentation Rate 4 mm/hr Normal 0-20 Antinuclear Antibodies 09/30/[address] [address] (315)- - Antinuclear Antibodies Direct Negative Normal Negati ve 2 Laboratory test finding 09/30/2020 [facility] [address] [place] [address] (315)- - Rheumatoid Factor Quant < 10.0 IU/mL Normal <15.0 3 Uric Acid 4.8 mg/dL Normal 2.6-6.0 4 Lyme Disease SCRN With Confirm 09/30/2020 [facility] [address] [place] [address] (315)- - Lyme Disease IgG/IgM Antibodie <0.91 ISR Normal 0.00- 0.90 5 Lyme Disease IgM Ab Quantitati <0.80 index Normal 0.00-0.79 6 Laboratory test finding [facility]30[facility] [address] [place] [address] (315)- - Hla-B27 Negative Normal . 7 1 note:<nlbl:demographic_chang ed> 2 Performed at: [address] [id number] Ornamental Metal Worker: Anny Woodard MD, Phone: [phone] Performed at: [address] [place] [id number] Ornamental Metal Worker: Tapan Giraldo PhD, Phone: [phone] 3 note:<nlbl:demographic_chang ed> 4 note:<nlbl:demographic_chang ed> 5 Negative <0.91 Equivocal 0.91 - 1.09 Positive >1.09 6 Negative <0.80 Equivocal 0.80 - 1.19 Positive >1.19 . IgM levels may peak at 3-6 weeks post infection, then gradually decline. 7 HLA-B*27 Negative B27 allele interpretation for all loci based on IMGT/HLA database version 3.38 This test was developed and its performance characteristics determined by [facility]. It has not been cleared or approved by the Food and Drug Administration. [facility] CLIA ID Number [id number] . This test was performed using PCR (Polymerase Chain Reaction)/SSOP (Sequence Specific Oligonucleotide Probes) technique. SBT (Sequence Based Typing) and/or SSP (Sequence Specific Primers) may be used as supplemental methods when necessary. Please contact HLA Customer Service at if you have any questions. . Director of HLA Laboratory Dr Tapan Giraldo, PhD Procedures Date Code Description Status 07/23/2020 79099 X-Ray Spine Lumbosacral Complete Inc Bending Views Min Of 6 Completed 07/13/2020 63532 Nerve Conduction 9-10 Studies Co mpleted 07/13/2020 10689 Needle Electromyography,Complete Five Or More Muscles Studied Completed 06/11/2020 92571 Apply Cast Short Arm Completed 06/07/2020 38716 MRI Lower Extremity Any Joint Co mpleted 06/07/2020 42135 MRI Lower Extremity Other Than J oint Completed 04/20/2020 01351 X-Ray Foot Complete Completed 04/20/2020 24641 X-Ray Ankle Complete Completed 04/13/2020 97841 X-Ray Foot Complete Completed 04/13/2020 16061 X-Ray Ankle Complete Completed Medical Devices Description No Information Available Encounters Type Date Location Provider Dx Diagnosis Office Visit 09/30/2020 8:30a Nicole Shelton PA-C S93.401 D Sprain of unspecified ligament of right ankle, subs encntr S93.601D Unspecified sprain of right foot, subsequent encounter M54.17 Radiculopathy, lumbosacral r egion 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 M25.532 Pain in left wrist M79.642 Pain in left hand M79.632 Pain in left forearm Office Visit 07/13/2020 9:00a [place] Cardozo MD M54.5 Low back pain R20.2 Paresthesia of skin M54.16 Radiculopathy, lumbar region Office Visit 06/22/2020 4:45p [place] Shelton PA-C S93.401 D Sprain of unspecified [...] 07/16/2020 M79.642 Pain in left hand Jaret rodirguez P.A. 07/16/2020 M79.632 Pain in left forearm [...] 2:00 pm - Vanita Shelton PA-C at [place] 09/30/2020 - Vanita Shelton PA-C* S93.401D Sprain [...] FOR 1 EV AL THEN PT CALL [phone] PASSED TO PT DEPT. LD Created [address] [place] [address] [phone] Vanita Shelton PA-C REF NO AUTH REQUIRED FOR REF TO DR VERA F OR EMG TO TRANS NT Created [address] [place] [address] [phone] Vanita Shelton PA-C EMG NO AUTH REQUIRED TO SCHEDULING NT Creat ed [address] [address] [phone] Vanita Shelton PA-C MRI APPROVED PER [employer] FOR MRI OF RIGHT ANKLE (36490) TO X-RAY. DG Created [address] [address] [phone] Jaret Andres, SONIA L3908 [place] Wrist W/Spica (Ots Fit). No authorization required. Covered in full. AC Created [address] [address] [phone] Vanita Shelton PA-C MRI APPROVED PER [facility] FOR MRI OF RIGHT FOOT (38298) TO X- RAY. DG Created [address] [address] [phone]
--- OUTSIDE RECORDS SUMMARY | 2020-11-01 12:11 | CCD ---
Author Author [facility] Organization [facility] Address Unknown Phone Unavailable Care Team Providers Care Athletic Equipment Manager Name Role Phone Shawnee Rivas Unavailable PROBLEMS Type Condition ICD9-CM Code [id number] Code Onset Dates Condition S tatus W/U Status Risk SNOMED Code Notes Problem Chronic diarrhea K52.9 Active confirmed 236 302800 Problem Allergic rhinitis, cause unspecified J30.9 Act annelise confirmed 83272178 Problem Carpal tunnel syndrome on both sides G56.03 Act annelise confirmed [id number] Problem Other allergic rhinitis J30.89 Active confirmed 26816222 Problem Seizure disorder G40.909 Active confirmed 12 8527599 Problem Obesity (BMI 30-39.9) E66.9 Active confirmed 427924023 Problem History of induced hypertension Z87.59 Active confirmed 911681378 Problem Gastroesophageal reflux disease without esophagitis K21.9 Active confirmed 587857100 Problem Vitamin D deficiency E55.9 Active confirmed 33746010 ALLERGIES Allergen (clinical drug ingredient) Drug/Non Drug Allergy do cumented on EMR Reaction Allergy Type Onset Date Status hydrocortisone / neomycin / polymyxin B Cortisporin(ND Code :[address]-03) Hives Drug Allergy Active Neosporin(NDC Code:68706-62952) Hives Drug Allergy Active altram Hives Drug Allergy Active Bee Pollen(NDC Code:[address]-57) swelled up wt h trouble breathing Drug Allergy Active metoclopramide Reglan(NDC Code:[address]-96) Tongue swelling Drug Al lergy Active ENCOUNTERS from 1985 to 2020-10-15 Encounter [facility] [address] [place] [address] 04 Oct, 2 021 [facility] IMMUNIZATIONS No Information SOCIAL HISTORY Tobacco Use: Social History Observation Description Date Details (start date - stop date) Never Smoker Sex Assigned At : Social History Observation Description Sex Assigned At Unknown Education: Question Answer Notes Level of Education: High School Audit Question Answer Notes Total Score: 0 Interpretation: Alcohol Education Language: Question Answer Notes Languages spoken: Malagasy Catholic: Question Answer Notes Catholic 13 Yarsani Domestic Violence: Question Answer Notes Status: Single Has the patient ever been in a situation involving domestic violence? No Has the patietn ever been injured, homeb ound, or hospitalized due to an altercation with significant other? No Sexual Hx: Question Answer Notes Had sex in the last 12 months (vaginal, oral, or anal)? No LMP: 11/18/18 Have you ever had an STD? No Drug and Alcohol Question Answer Notes Total Score: 0 Interpretation: No problems reported Alcohol Screening: Question Answer Notes Did you have a drink containing alcohol in the past year? No Points 0 Interpretation Negative BMI Care Goal Follow-Up Question Answer Notes Above Normal BMI Follow-Up Giving encouragement to exercise Tobacco Use: Question Answer Notes Are you a: never smoker never smoker REASON FOR REFERRAL No Information VITAL SIGNS No information MEDICATIONS Medication SIG (Take, Route, Frequency, Duration) Notes Start Da te End Date Status Drisdol 38969 UNIT 1 capsule Orally weekly with meal for 30 Days Active Protriptyline HCl 10 MG 1 tablet Orally Daily Not-Taking Vitamin D 1000 UNIT 1 tablet with meal Orally Once a day Active Saline Nasal [place] 0.65 % 2 sprays in each nostril as needed Nasally every 4 hrs as needed Active Ibuprofen 600 MG 1 tablet with food Orally Th ree times a day as needed for pain for 30 day(s) May, Active Sumatriptan Succinate 50 MG 2 tabs Orally Twice a day Active Bactrim DS 800-160 MG 1 tablet Orally Twice a day for 3 days Aug, Active Sucralfate 1 GM 1 tablet on an empty stomach Orally once daily Active Wrist Splint cock-up bilateral DX: 354 daily as needed May, Active Levetiracetam 750 MG 1 tablet Orally Twice a day for 30 day(s) Active Flonase 50 MCG/DOSE 2 sprays in each nostril Nasally Once a day Active Omeprazole 40 MG 1 capsule Orally Once a day Active Acetaminophen 500 MG 2 caps or tabs as needed Orally every 8 hrs Jun, Active Metamucil Fiber 51.7 % as directed Orally Daily Active Calcium + D 600-400 MG-UNIT 1 tablet with food Orally Once a day Active Amitriptyline HCl 75 MG 1 tablet at bedtime Orally Once a day for 3 0 day(s) Active Gabapentin 300 MG 1 capsule Orally twice daily Active Zyrtec Allergy 10 mg 1 tablet Orally Once a day Active Zofran 4 MG 1 tablet as needed Orally bid prn for 10 day(s) Active PROCEDURES No Information RESULTS No Results REASON FOR VISIT no show MEDICAL (GENERAL) HISTORY Type Description Date Medical History induced hypertension Medical History seizures Medical History migraine headaches Medical History allergic rhinitis Medical History vitamin D deficiency Surgical History tubal ligation 2012 Surgical History sinus surgery 2001, 2005 Surgical History D&C 2003? Surgical History teeth extraction ( dentures) Surgical History colonoscopy - redundant colon - [facility] 02/13 Surgical History EGD and Colonoscopy with terri nomatous polyps, Biopsies benign - f/up [address] Miller 02/07/19 Hospitalization History childbirth, surgery Hospitalization History [facility] 07/01-07[facility]05 Goals Section No Information Health Concerns No Information MEDICAL EQUIPMENT No Information MENTAL STATUS No Information FUNCTIONAL STATUS No Information ASSESSMENTS No Information PLAN OF TREATMENT Medication Medication Name Sig Start Date Stop Date Bactrim DS 800-160 MG 1 tablet Orally Twice a day for 3 days Aug, Insurance Providers Payer Name Payer Address Payer Phone Insured Name Patient Relati onship to Insured Coverage Start Date Coverage End Date [facility] [employer] DEPT [address] [place] [phone] DMITRIY ROSALES self
--- OUTSIDE RECORDS SUMMARY | 2020-11-01 12:11 | CCD ---
Author Author Avis Lange Organization Unknown Address [address] [address] Phone Care Team Providers Care Resources Representative Name Role Phone Daphne Lange PCP Allergies, Adverse Reactions, Alerts No Data in Section Problem List Concept Problem Description Status Start Date Created Date Resolv ed Date Snomed Code F68.10 Factitious Disorder (include s Factitious Disorder Imposed on Self, Factitious Disorder Imposed on Another) Active 10/15/2020 F43.21 Adjustment Disorder, With depressed mood Active 0 12/16/2019 Medications No Data in Section Social History Social History Element Description Concept Effective Date Smoking Status Unknown if ever smoked [id number] Immunizations No Data in Section Vital Signs No Data in Section Procedures Date Concept Id Description Targeted Site Concept Targeted Site Concept Type 10/13/2020 31871 Extended Individual Psychotherapy - 45 min CPT Patient has no history of implantable de vices Encounters Encounter Start Date End Date Encounter Type Description Diagnosis Di agnosis Desc Location Author First Name Author Last Name Npid Taxonomy Cod e Taxonomy Desc Phone Number Location Addr1 Location Addr2 Location [facility] Location [facility] Location [facility] [id number] 10/13/2020 10/13/2020 95871 Extended Individual Psych otherapy - 45 min F68.10 Factitious disorder [facility] Daphne [id number] [id number] Psychologist [phone] [address] [address] Plan of Treatment No Data in Section Lab Results No Data in Section Instructions No Data in Section Insurance Providers Insurance Id Policy Effective Date Policy Thru Date Company N michelle [id number] 2019 STEPHEN - MEDICA ID MANAGED
--- OUTSIDE RECORDS SUMMARY | 2020-11-01 12:12 | CCD | Continuity of Care Document ---
Author Author Avis SHELTON PA-C Organization Unknown Address [address] [address] Phone [phone] Care Team Providers Care Creative Recruiter Name Role Phone Shawnee Rivas DEANDRE AUTM [phone] CathyalexandraduglasMilagros mottadi Kimberly PHILLIP-C AUTM Problems Active [...] 06/15/2020 8:37am Body Temperature 96.3 F Results Description No Information Available Procedures Date Code Description Status 07/23/2020 56832 X-Ray Spine Lumbosacral Complete Inc Bending Views Min Of 6 Completed 07/13/2020 32999 Nerve Conduction 9-10 Studies Co mpleted 07/13/2020 21866 Needle Electromyography,Complete Five Or More Muscles Studied Completed 06/11/2020 72145 Apply Cast Short Arm Completed 06/07/2020 99422 MRI Lower Extremity Any Joint Co mpleted 06/07/2020 02971 MRI Lower Extremity Other Than J oint Completed 04/20/2020 02163 X-Ray Foot Complete Completed 04/20/2020 41695 X-Ray Ankle Complete Completed 04/13/2020 28448 X-Ray Foot Complete Completed 04/13/2020 23104 X-Ray Ankle Complete Completed Medical Devices Description No Information Available Encounters Type Date Location Provider Dx Diagnosis Office Visit 07/23/2020 3:15p [place] Vanita Shelton PA-C M51.36 Other intervertebral disc degeneration, lumbar region M54.17 Radiculopathy, lumbosacral r egion Office Visit 07/16/2020 2:30p [place] Jaret Andres, P.A. M25.532 Pain in left wrist M79.642 Pain in left hand M79.632 Pain in left forearm Office Visit 07/13/2020 9:00a [place] Meng Cardozo MD M54.5 Low back pain R20.2 Paresthesia of skin M54.16 Radiculopathy, lumbar region Office Visit 06/22/2020 4:45p [place] Vanita Shelton PA-C S93.401 D Sprain of unspecified ligament of right ankle, subs encntr S93.601D Unspecified sprain of right foot, subsequent encounter L03.115 Cellulitis of right lower li mb Office Visit 06/15/2020 8:30a [place] Vanita Shelton PA-C S93.401 D Sprain of unspecified ligament of right ankle, subs encntr S93.601D Unspecified sprain of right foot, subsequent encounter L03.115 Cellulitis of right lower li mb Office Visit 06/11/2020 3:00p [place] Jaret Andres, P.A. M25.532 Pain in left wrist M79.642 Pain in left hand M79.632 Pain in left forearm Z47.89 Encounter for other orthoped ic aftercare Office Visit 04/26/2020 11:30a [place]maia Andres P.A. M79.642 Pain in left hand M25.532 Pain in left wrist M79.632 Pain in left forearm Office Visit 04/20/2020 8:30a [place] VillanuevaC S93.401 D Sprain of unspecified ligament of right ankle, subs encntr S93.601D Unspecified sprain of right foot, subsequent encounter Office Visit 04/13/2020 10:15a [place] VillanuevaC S93.401 A Sprain of unspecified ligament of right ankle, init encntr S93.601A Unspecified sprain of right foot, initial encounter Assessments Date Code Description Provider 09/30/2020 S93.401D Sprain of unspecifie d ligament of right ankle, subsequent encounter SONIA Decker-C 09/30/2020 S93.601D Unspecified sprain of right foot , subsequent encounter SONIA Decker-C 09/30/2020 M51.36 Other intervertebral disc degene ration, lumbar region Vanita LCamila Shelton PA-C 09/30/2020 M54.17 Radiculopathy, lumbosacral regio n Vanita LSONIA Renteria-C 07/23/2020 M51.36 Other intervertebral disc degene ration, lumbar region Vanita LCamila Shelton PA-C 07/23/2020 M54.17 Radiculopathy, lumbosacral regio n Vanita L. Nikita PA-C 07/16/2020 M25.532 Pain in left wrist Jaret Penaloza, P.A. 07/16/2020 M79.642 Pain in left hand Jaret rodriguez, P.A. 07/16/2020 M79.632 Pain in left forearm Jaret Andres, P.A. 07/13/2020 M54.5 Low back pain Meng Cardozo MD 07/13/2020 R20.2 Paresthesia of skin Meng mcdowell MD 07/13/2020 M54.16 Radiculopathy, lumbar region How alexandra Cardozo MD 06/22/2020 S93.401D Sprain of unspecifie d ligament of right ankle, subsequent encounter Vanita Barakat Nikita PA-C 06/22/2020 S93.601D Unspecified sprain of right foot , subsequent encounter Vanita LSONIA Renteria-C 06/22/2020 L03.115 Cellulitis of right lower limb Bambi Barakat SONIA Shelton-C 06/15/2020 S93.401D Sprain of unspecifie d ligament of right ankle, subsequent encounter Vanita MaximusSONIA Renteria-C 06/15/2020 S93.601D Unspecified sprain of right foot , subsequent encounter Vanita MaximusSONIA Renteria-C 06/15/2020 L03.115 Cellulitis of right lower limb Bambi Barakat SONIA Shelton-C 06/11/2020 M25.532 Pain in left wrist Jaret [...] M25.532 Pain in left wrist Jaret Penaloza, PCamilaACamila 04/26/2020 M79.632 Pain in left forearm Gilbert Ramirez 04/20/2020 S93.401D Sprain of unspecifie d ligament of right ankle, subsequent encounter Vanita Shelton PA-C 04/20/2020 S93.601D Unspecified sprain of right foot , subsequent encounter Vanita Shelton PA-C 04/13/2020 S93.401A Sprain of unspecifie d ligament of right ankle, initial encounter Vanita Shelton PA-C 04/13/2020 S93.601A Unspecified sprain of right foot , initial encounter Vanita Shelton PA-C Plan of Treatment 09/30/2020 - Vanita Shelton PA-C* S93.401D Sprain of unspecified ligament of right ankle, subsequent encounter* New Labs:* CBC With Differential, Ordered: 09/30/20 * High Sensitivity C-Reactive Protein, Ordered: 09/30/20 * Erythrocyte Sedimentation Rate, Ordered: 09/30/20 * Antinuclear Antibodies, Ordered: 09/30/20 * Rheumatoid Factor Quant, Ordered: 09/30/20 * Uric Acid, Ordered: 09/30/20 * Lyme Disease SCRN With Confirm, Ordered: 09/30/20 * Hla-B27, Ordered: 09/30/20 * Follow up:* with KLF in 3-4 weeks TELEMED * S93.601D Unspecified sprain of right foot, subsequent encounter * M51.36 Other intervertebral disc degeneration, lumbar region * M54.17 Radiculopathy, lumbosacral region Functional Status Description No Information Available Mental Status Description No Information Available Referrals Refer to Reason for Referral Status Appt Date Vanita Shelton PA-C PT NO AUTH REQUIRED FOR 1 EV AL THEN PT CALL [phone] PASSED TO PT DEPT. LD Created [address] [place] [address] [phone] Vanita Shelton PA-C REF NO AUTH REQUIRED FOR REF TO DR VERA F OR EMG TO TRANS NT Created [address] [place] [address] [phone] Vanita Shelton PA-C EMG NO AUTH REQUIRED TO SCHEDULING NT Creat ed [address] [address] [phone] Vanita Shelton PA-C MRI APPROVED PER [employer] FOR MRI OF RIGHT ANKLE (86759) TO X-RAY. DG Created [address] [phone] Jaret Andres PA L3908 [place] Wrist W/Spica (Ots Fit). No authorization required. Covered in full. AC Created [address] [address] [phone] Vanita Shelton PA-C MRI APPROVED PER [employer] FOR MRI OF RIGHT FOOT (72566) TO X- RAY. BRANDON Created [address] [address] [phone]
--- OUTSIDE RECORDS SUMMARY | 2020-11-01 12:12 | CCD | Continuity of Care Document ---
Author Author Avis TAM PA-C Organization Unknown Address [address] [address] Phone [phone] Care Team Providers Care Mac Artist Name Role Phone Shawnee Rivas DEANDRE AUTM [phone] CathyMilagros cuellardi Kimberly DATA CAPTURE SPECIALIST-C AUTM [phone] Problems Active Problems Provider Date Contusion of [...] Available Procedures Date Code Description Status 07/23/2020 90084 X-Ray Spine Lumbosacral Complete Inc Bending Views Min Of 6 Completed 07/13/2020 36993 Nerve Conduction 9-10 Studies Co mpleted 07/13/2020 62784 Needle Electromyography,Complete Five Or More Muscles Studied Completed 06/11/2020 08551 Apply Cast Short Arm Completed 06/07/2020 74425 MRI Lower Extremity Any Joint Co mpleted 06/07/2020 95751 MRI Lower Extremity Other Than J oint Completed 04/20/2020 13439 X-Ray Foot Complete Completed 04/20/2020 28897 X-Ray Ankle Complete Completed 04/13/2020 54966 X-Ray Foot Complete Completed 04/13/2020 07337 X-Ray Ankle Complete Completed 02/23/2020 19143 X-Ray Forearm Ap & Lateral 2 Vie ws Completed 02/23/2020 03165 X-Ray Elbow Complete Completed 02/23/2020 35588 X-Ray Shoulder Complete Complete d Medical Devices Description No Information Available Encounters Type Date Location Provider Dx Diagnosis Office Visit 07/23/2020 3:15p [place] Vanita Tam PA-C M51.36 Other intervertebral disc degeneration, lumbar region M54.17 Radiculopathy, lumbosacral r egion Office Visit 07/16/2020 2:30p [place] Jaret Andres, P.A. M25.532 Pain in left wrist M79.642 Pain in left hand M79.632 Pain in left forearm Office Visit 07/13/2020 9:00a [place] Meng Cardozo MD M54.5 Low back pain R20.2 Paresthesia of skin M54.16 Radiculopathy, lumbar region Office Visit 06/22/2020 4:45p [place] Vanita Tam PA-C S93.401 D Sprain of unspecified ligament of right ankle, subs encntr S93.601D Unspecified sprain of right foot, subsequent encounter L03.115 Cellulitis of right lower li mb Office Visit 06/15/2020 8:30a [place] Tam PA-C S93.401 D Sprain of unspecified ligament of right ankle, subs encntr S93.601D Unspecified sprain of right foot, subsequent encounter L03.115 Cellulitis of right lower li mb Office Visit 06/11/2020 3:00p Nicole Andres P.A. M25.532 Pain in left wrist M79.642 Pain in left hand M79.632 Pain in left forearm Z47.89 Encounter for other orthoped ic aftercare Office Visit 04/26/2020 11:30a [place] Andres P.A. M79.642 Pain in left hand M25.532 Pain in left wrist M79.632 Pain in left forearm Office Visit 04/20/2020 8:30a Nicole Tam PA-C S93.401 D Sprain of unspecified ligament of right ankle, subs encntr S93.601D Unspecified sprain of right foot, subsequent encounter Office Visit 04/13/2020 10:15a Nicole Tam PA-C S93.401 A Sprain of unspecified ligament of right ankle, init encntr S93.601A Unspecified sprain of right foot, initial encounter Office Visit 03/05/2020 8:15a Nicole Monaco MD Z4 7.89 Encounter for other orthopedic aftercare Office Visit 02/23/2020 10:30a Nicole Monaco MD Z4 7.89 Encounter for other orthopedic aftercare S40.022A Contusion of left upper arm, initial encounter Office Visit 02/03/2020 1:30p Nicole Monaco MD Z4 7.89 Encounter for other orthopedic aftercare Assessments Date Code Description Provider 07/23/2020 M51.36 Other intervertebral disc degene ration, lumbar region Vanita Tam PA-C 07/23/2020 M54.17 Radiculopathy, lumbosacral regio n Vanita Tam PA-C 07/16/2020 M25.532 Pain in left wrist Dru GibbsACamila 07/16/2020 M79.642 Pain in left hand Gilbert Boyd 07/16/2020 M79.632 Pain in left forearm Jaret Andres, P.A. 07/13/2020 M54.5 Low back pain Meng Cardozo MD 07/13/2020 R20.2 Paresthesia of skin Meng mcdowell MD 07/13/2020 M54.16 Radiculopathy, lumbar region How alexandra Cardozo MD 06/22/2020 S93.401D Sprain of unspecifie d ligament of right ankle, subsequent encounter Vanita MaximusCamila Tam PA-C 06/22/2020 S93.601D Unspecified sprain of right foot , subsequent encounter Vanita Tam PA-C 06/22/2020 L03.115 Cellulitis of right lower limb Bambi agustin StroudCamila Tam PA-C 06/15/2020 S93.401D Sprain of unspecifie d ligament of right ankle, subsequent encounter Vanita Tam PA-C 06/15/2020 S93.601D Unspecified sprain of right foot , subsequent encounter Vanita Tam PA-C 06/15/2020 L03.115 Cellulitis of right lower limb Bambi agustin StroudCamila Tam PA-C 06/11/2020 M25.532 Pain in left wrist [...] 04/26/2020 M79.642 Pain in left hand Jaret rodriguez, P.A. 04/26/2020 M25.532 Pain in left wrist [...] foot , initial encounter Vanita Tam PA-C 03/05/2020 Z47.89 Encounter for other orthopedic a ftercare Willy Monaco MD 02/23/2020 Z47.89 Encounter for other orthopedic a ftercare Willy Monaco MD 02/23/2020 S40.022A Contusion of left upper arm, ini tial encounter Willy Monaco MD 02/03/2020 Z47.89 Encounter for other orthopedic a ftercare Willy Monaco MD Plan of Treatment 07/23/2020 - Vanita Tam PA-C* M51.36 Other intervertebral disc degeneration, lumbar region* Follow up:* with lumbar spine mri results * M54.17 Radiculopathy, lumbosacral region * All * New Medication:* Gabapentin 100 mg - 1 po at bedtime for 1 week, then increase to 1 tab po bid for 2nd week, then increase to 1 tab po tid for 3rd week Functional Status Description No Information Available Mental Status Description No Information Available Referrals Refer to Dr Reason for Referral Status Appt Date Vanita Tam PA-C PT NO AUTH REQUIRED FOR 1 EV AL THEN PT CALL [phone] PASSED TO PT DEPT. LD Created [address] [place] [address] [address] [place] [address] [phone] Vanita Tam PA-C REF NO AUTH REQUIRED FOR REF TO DR CHUY Martínez OR EMG TO TRANS NT Created [address] [address] [phone] Vanita Tam PA-C EMG NO AUTH REQUIRED TO SCHEDULING NT Creat ed [address] [address] [phone] Vanita Tam PA-C MRI APPROVED PER [employer] FOR MRI OF RIGHT ANKLE (23117) TO X-RAY. DG Created [address] [address] [phone] Jaret Andres PA L3908 [place] Wrist W/Spica (Ots Fit). No authorization required. Covered in full. AC Created [address] [address] [phone] Vanita Tam PA-C MRI APPROVED PER [employer] FOR MRI OF RIGHT FOOT (07937) TO X- RAY. DG Created [address] [address] [phone]
--- OUTSIDE RECORDS SUMMARY | 2020-11-01 12:12 | CCD ---
Author Author [facility] Organization [facility] Address Unknown Phone Unavailable Care Team Providers Care Liner Machine Operator Name Role Phone Shawnee Rivas Unavailable PROBLEMS Type Condition ICD9-CM Code [id number] Code Onset Dates Condition S tatus SNOMED Code Notes Problem Chronic diarrhea K52.9 Active 747687405 Problem Allergic rhinitis, cause unspecified J30.9 Act annelise 74379529 Problem Carpal tunnel syndrome on both sides G56.03 Active 76603687032383313 Problem Other allergic rhinitis J30.89 Active 20501850 Problem Seizure disorder G40.909 Active 011768035 Problem Obesity (BMI 30-39.9) E66.9 Active 240448316 Problem History of induced hypertension Z87.59 Active 210710873 Problem Gastroesophageal reflux disease without esophagitis K21.9 Active 942982778 Problem Vitamin D deficiency E55.9 Active 51138661 ALLERGIES Allergen (clinical drug ingredient) Drug/Non Drug Allergy do cumented on EMR Reaction Allergy Type Onset Date Status hydrocortisone / neomycin / polymyxin B Cortisporin(ND Code :[address]-13) Hives Drug Allergy Active Neosporin(NDC Code:03319-03327) Hives Drug Allergy Active altram Hives Drug Allergy Active Bee Pollen(NDC Code:[address]-00) swelled up wt h trouble breathing Drug Allergy Active metoclopramide Reglan(NDC Code:[address]-77) Tongue swelling Drug Al lergy Active ENCOUNTERS from 1985 to 2020-08-13 Encounter Location Date Provider Diagnosis [facility] [address] [address] Aug, 020 [facility] IMMUNIZATIONS No Information SOCIAL HISTORY Tobacco Use: Social History Observation Description Date Details (start date - stop date) Never Smoker Sex Assigned At : Social History Observation Description Sex Assigned At Unknown Education: Question Answer Notes Level of Education: High School Audit Question Answer Notes Total Score: 0 Interpretation: Alcohol Education Language: Question Answer Notes Languages spoken: Spanish Caodaism: Question Answer Notes Caodaism 13 Hinduism Domestic Violence: Question Answer Notes Status: Single [...] Start Da te End Date Status Drisdol 85316 UNIT 1 capsule Orally weekly with meal for 30 Days Active Protriptyline HCl 10 MG 1 tablet Orally Daily Not-Taking Vitamin D 1000 UNIT 1 tablet with meal Orally Once a day Active Saline Nasal [place] 0.65 % 2 sprays in each nostril [...] Information RESULTS No Results REASON FOR VISIT urine cx MEDICAL (GENERAL) HISTORY Type Description Date Medical [...] 02/07/19 Hospitalization History childbirth, surgery Hospitalization History seizure-[facility] 07/01-07/05 Goals Section No Information [...] Insured Coverage Start Date Coverage End Date [employer] DEPT [address] [place] [phone] DMITRIY ROSALES self
--- OUTSIDE RECORDS SUMMARY | 2020-11-01 12:12 | CCD ---
Author Author Avis Lange Organization Unknown Address [address] [address] Phone Care Team Providers Care Awnings Mechanic Name Role Phone Daphne Lange PCP Allergies, Adverse Reactions, Alerts No Data in Section Problem List Concept Problem Description Status Start Date Created Date Resolv ed Date Snomed Code F68.10 Factitious Disorder (include s Factitious Disorder Imposed on Self, Factitious Disorder Imposed on Another) Active 09/24/2020 F43.21 Adjustment Disorder, With depressed mood Active 0 12/16/2019 Medications No Data in Section Social History Social History Element Description Concept Effective Date Smoking Status Unknown if ever smoked [id number] Immunizations No Data in Section Vital Signs No Data in Section Procedures Date Concept Id Description Targeted Site Concept Targeted Site Concept Type 09/24/2020 50320 Extended Individual Psychotherapy - 45 min CPT Patient has no history of implantable de vices Encounters Encounter Start Date End Date Encounter Type Description Diagnosis Di agnosis Desc Location Author First Name Author Last Name Npid Taxonomy Cod e Taxonomy Desc Phone Number Location Addr1 Location Addr2 Location [facility] Location [facility] Location [facility] [id number] 09/24/2020 09/24/2020 16622 Extended Individual Psych otherapy - 45 min F68.10 Factitious disorder [facility] Lange Daphne [phone] [id number] Psychologist [id number] [address] [place], [place] 1 [facility] [address] Plan of Treatment No Data in Section Lab Results No Data in Section Instructions No Data in Section Insurance Providers Insurance Id Policy Effective Date Policy Thru Date Company N michelle [id number] 2019 [employer] - MEDICA ID MANAGED
--- OUTSIDE RECORDS SUMMARY | 2020-11-01 12:12 | CCD ---
Author Author Avis Lange Organization Unknown Address [address] [address] Phone Care Team Providers Care Coin Collector Name Role Phone Daphne Lange PCP Allergies, Adverse Reactions, Alerts No Data in Section Problem List Concept Problem Description Status Start Date Created Date Resolv ed Date Snomed Code F68.10 Factitious Disorder (include s Factitious Disorder Imposed on Self, Factitious Disorder Imposed on Another) Active 09/07/2020 F43.21 Adjustment Disorder, With depressed mood Active 0 12/16/2019 Medications No Data in Section Social History Social History Element Description Concept Effective Date Smoking Status Unknown if ever smoked [id number] Immunizations No Data in Section Vital Signs No Data in Section Procedures Date Concept Id Description Targeted Site Concept Targeted Site Concept Type 09/07/2020 63901 Extended Individual Psychotherapy - 45 min CPT Patient has no history of implantable de vices Encounters Encounter Start Date End Date Encounter Type Description Diagnosis Di agnosis Desc Location Author First Name Author Last Name Npid Taxonomy Cod e Taxonomy Desc Phone Number Location Addr1 Location Addr2 Location [facility] Location [facility] [id number] 09/07/2020 09/07/2020 96332 Extended Individual Psych otherapy - 45 min F68.[address] [facility] Nazario Serna [phone] [id number] Psychologist [id number] [address] [place], [place] [address] [facility] [address] Plan of Treatment No Data in Section Lab Results No Data in Section Instructions No Data in Section Insurance Providers Insurance Id Policy Effective Date Policy Thru Date Company N michelle [id number] 2019 [employer] - MEDICA ID MANAGED
--- OUTSIDE RECORDS SUMMARY | 2020-11-01 12:12 | CCD ---
Author Author [facility] Organization [facility] Address Unknown Phone Unavailable Care Team Providers Care Radio Operator Name Role Phone Shawnee Rivas Unavailable PROBLEMS Type Condition ICD9-CM Code [id number] Code Onset Dates Condition S tatus SNOMED Code Notes Problem Chronic diarrhea K52.9 Active 085776048 Problem Allergic rhinitis, cause unspecified J30.9 Act annelise 85487057 Problem Carpal tunnel syndrome on both sides G56.03 Active [id number] Problem Other allergic rhinitis J30.89 Active 92133036 Problem Seizure disorder G40.909 Active 545728251 Problem Obesity (BMI 30-39.9) E66.9 Active 402306992 Problem History of induced hypertension Z87.59 Active 417664145 Problem Gastroesophageal reflux disease without esophagitis K21.9 Active 576153745 Problem Vitamin D deficiency E55.9 Active 85089938 ALLERGIES Allergen (clinical drug ingredient) Drug/Non Drug Allergy do cumented on EMR Reaction Allergy Type Onset Date Status hydrocortisone / neomycin / polymyxin B Cortisporin(ND Code :[address]-00) Hives Drug Allergy Active Neosporin(NDC Code:15303-79796) Hives Drug Allergy Active altram Hives Drug Allergy Active Bee Pollen(NDC Code:[address]-64) swelled up wt h trouble breathing Drug Allergy Active metoclopramide Reglan(NDC Code:[address]-46) Tongue swelling Drug Al lergy Active ENCOUNTERS from 1985 to 2020-08-13 Encounter Location Date Provider Diagnosis PSYCHIATRIC [place] [address] Aug, 020 Shawnee Rivas Dysuria R30.0 ; Lower abdominal pain R10.30 and Epigastric pain R10.13 IMMUNIZATIONS No Information SOCIAL HISTORY Tobacco Use: Social History Observation Description Date Details (start date - stop date) Never Smoker Sex Assigned At : Social History Observation Description Sex Assigned At Unknown Education: Question Answer Notes Level of Education: High School Audit Question Answer Notes Total Score: 0 Interpretation: Alcohol Education Language: Question Answer Notes Languages spoken: Mozambican Confucianism: Question Answer Notes Confucianism 13 Oriental Orthodox Domestic Violence: Question Answer Notes Status: Single [...] REASON FOR REFERRAL No Information VITAL SIGNS Weight 148 lbs Aug, Height 65 in Aug, BMI 24.63 kg/m2 Aug, Heart Rate 80 /min Aug, Respiratory Rate 18 /min Aug, Temperature 97.8 degrees Fahrenheit Aug, Oximetry 98 Aug, Blood pressure systolic 110 mm Hg Aug, Blood pressure diastolic 80 mm Hg Aug, MEDICATIONS Medication SIG (Take, Route, Frequency, Duration) Notes Start Da te End Date Status Drisdol 17920 UNIT 1 capsule Orally weekly with meal for 30 Days Active Protriptyline HCl 10 MG 1 tablet Orally Daily Not-Taking Vitamin D 1000 UNIT 1 tablet with meal Orally Once a day Active Saline Nasal Ranier 0.65 % 2 sprays in each nostril [...] 10 day(s) Active PROCEDURES No Information RESULTS Component Value Reference Range Urinalysis, no micro Reviewed date:08/10/2020 13:21:58 Interpretation: Performing Lab:[facility], ,[place] [address] Spec gravity 1.005 1.002 - 1.035 pH 7 5.0 - 9.0 Leukocyte trace Negative - Nitrate neg Negative - Protein trace Negative - mg/dl Glucose neg Negative - mg/dl Ketones neg Negative - mg/dl Urobili neg Normal - mg/dl Bilirubin neg Negative - Blood neg Negative - Internal QC Acceptable (Y/N) yes AMYLASE Reviewed date:08/10/2020 17:34:40 Interpretation:Normal Performing Lab:[facility] LAB[facility]ORY [address] [facility] [address] , ,[place] [address] AMYLASE 37 25-115 CBC with Differential Reviewed date:08/10/2020 17:34:40 Interpretation:Normal Performing Lab:[facility] LAB[facility]ATORY [address] [facility] [address] , ,[place] [address] WHITE BLOOD COUNT 5.5 4.0-10.0 RED BLOOD COUNT 4.20 4.00-5.40 HEMOGLOBIN 12.0 12.0-15.5 HEMATOCRIT 37.5 36.0-47.0 MEAN CORPUSCULAR VOLUME 89.3 80.0-96.0 MEAN CORPUSCULAR HEMOGLOBIN 28.6 27.0-33.0 MEAN CORPUSCULAR HGB CONC 32.0 32.0-36.5 RED CELL DISTRIBUTION WIDTH 12.5 11.5-14.5 PLATELET COUNT, AUTOMATED 260 150-450 NEUTROPHILS % 70.9 36.0-66.0 LYMPH % 19.7 24.0-44.0 MONO % 7.2 0.0-5.0 EOS % 1.1 0.0-3.0 BASO % 0.7 0.0-1.0 NEUTROPHILS # 3.9 1.5-8.5 LYMPH # 1.1 1.5-5.0 MONO # 0.4 0.0-0.8 EOS # 0.1 0.0-0.5 BASO # 0.0 0.0-0.2 URINE CULTURE Reviewed date:08/12/2020 11:11:17 Interpretation: Performing Lab:[facility] LABORATORY [address] [facility] [address] , ,[place] [address] UA URINALYSIS Reviewed date:08/10/2020 17:37:50 Interpretation: Performing Lab:[facility] LABORATORY [address] [facility] [address] , ,[place] [address] Comprehensive Metabolic Profile (CMP) Reviewed date:08/10/2020 17:34:40 Interpretation:Normal Performing Lab:[facility] LABORATORY [address] [facility] [address] , ,[place] [address] GLUCOSE, FASTING 86 70-100 BLOOD UREA NITROGEN 6 7-18 CREATININE FOR GFR 0.68 0.55-1.30 GLOMERULAR FILTRATION RATE > 60.0 >60 SODIUM LEVEL 139 136-145 POTASSIUM SERUM 4.2 3.5-5.1 CHLORIDE LEVEL 106 98-107 CARBON DIOXIDE LEVEL 29 21-32 CALCIUM LEVEL 9.0 8.5-10.1 AST/SGOT 10 7-37 ALT/SGPT 15 12-78 ALKALINE PHOSPHATASE 62 45-117 BILIRUBIN,TOTAL 0.7 0.2-1.0 TOTAL PROTEIN 6.9 6.4-8.2 ALBUMIN 3.9 3.2-5.2 ALBUMIN/GLOBULIN RATIO 1.3 1.2-2.2 LIPASE Reviewed date:08/10/2020 17:34:40 Interpretation:Normal Performing Lab:[facility], [facility] LABORATORY [address] [facility] [id number] , ,[place] [address] LIPASE 108 73-393 REASON FOR VISIT ER Visit [facility] 07/26; Abd Pain, er report, labs, radiology in ecw 08/09, Urine dip done MEDICAL (GENERAL) HISTORY Type Description Date Medical [...] 02/07/19 Hospitalization History childbirth, surgery Hospitalization History seizure-[facility] 07/01-07/05 Goals Section No Information Health Concerns No Information MEDICAL EQUIPMENT No Information MENTAL STATUS No Information FUNCTIONAL STATUS No Information ASSESSMENTS Encounter Date Diagnosis Assessment Notes Treatment Notes Treatm ent Clinical Notes Aug, Dysuria (ICD-10 - R30.0) Aug, Lower abdominal pain (ICD-10 - R10.30) Aug, Epigastric pain (ICD-10 - R10.13) PLAN OF TREATMENT Medication Medication Name Sig Start Date Stop Date Bactrim DS 800-160 MG 1 tablet Orally Twice a day for 3 days Aug, Future Test Test Name Order Date [facility] GALLBLADDER (LIMITED ABD) US [id number] Next Appt Details 3 Months (30min) Reason:follow-up Follow Up:3 Months (30min)follow-up Insurance Providers Payer Name Payer Address Payer Phone Insured Name Patient Relati onship to Insured Coverage Start Date Coverage End Date [employer] DEPT [address] [place] [phone] DMITRIY ROSALES self
--- OUTSIDE RECORDS SUMMARY | 2020-11-01 12:12 | CCD ---
Author Author Avis Lange Organization Unknown Address [address] [address] Phone Care Team Providers Care Glass Breaker Name Role Phone Daphne Lange PCP Allergies, Adverse Reactions, Alerts No Data in Section Problem List Concept Problem Description Status Start Date Created Date Resolv ed Date Snomed Code F68.10 Factitious Disorder (include s Factitious Disorder Imposed on Self, Factitious Disorder Imposed on Another) Active 08/19/2020 F43.21 Adjustment Disorder, With depressed mood Active 0 12/16/2019 Medications No Data in Section Social History Social History Element Description Concept Effective Date Smoking Status Unknown if ever smoked [id number] Immunizations No Data in Section Vital Signs No Data in Section Procedures Date Concept Id Description Targeted Site Concept Targeted Site Concept Type 08/17/2020 08914 Extended Individual Psychotherapy - 45 min CPT Patient has no history of implantable de vices Encounters Encounter Start Date End Date Encounter Type Description Diagnosis Di agnosis Desc Location Author First Name Author Last Name Npid Taxonomy Cod e Taxonomy Desc Phone Number Location Addr1 Location Addr2 Location [facility] Location [facility] Location [facility] 440574 08/17/2020 08/17/2020 97597 Extended Individual Psych otherapy - 45 min F68.10 Factitious disorder [facility] Nazario Serna [phone] [id number] Psychologist [id number] [address] [place], [place] 1 [facility] [address] Plan of Treatment No Data in Section Lab Results No Data in Section Instructions No Data in Section Insurance Providers Insurance Id Policy Effective Date Policy Thru Date Company N michelle [id number] 2019 [employer] - MEDICA ID MANAGED
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
[2020-11-01] MEDS ORDERED: levETIRAcetam INJection 1,000 MG in D5W 100 ML IV ONE (12:15)
[2020-11-01] MEDS ORDERED: NS 500 ML IV ONE (12:15)
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
[2020-11-01 12:39] LABS: BASO % 0.7 % (0.0-1.0); EOS # 0.1 10^3/uL (0.0-0.5); EOS % 1.3 % (0.0-3.0); HEMATOCRIT 42.7 % (36.0-47.0); HEMOGLOBIN 13.8 g/dl (12.0-15.5); LYMPH % 18.6 % (24.0-44.0); MEAN CORPUSCULAR HEMOGLOBIN 27.9 pg (27.0-33.0); MEAN CORPUSCULAR HGB CONC 32.3 g/dl (32.0-36.5); MEAN CORPUSCULAR VOLUME 86.4 fl (80.0-96.0); MONO # 0.4 10^3/uL (0.0-0.8); MONO % 6.6 % (2.0-8.0); NEUTROPHILS # 4.1 10^3/uL (1.5-8.5); NEUTROPHILS % 72.4 % (36.0-66.0); RED BLOOD COUNT 4.94 10^6/uL (4.00-5.40); WHITE BLOOD COUNT 5.6 10^3/uL (4.0-10.0)
--- OUTSIDE RECORDS SUMMARY | 2020-11-01 12:39 | CCD ---
Author Author [facility] Organization [facility] Address Unknown Phone Unavailable Care Team Providers Care Mineral Mixer Name Role Phone Rachel Miller MD (Jack) Unavailable Unavailable Rachel Miller MD (Jack) Unavailable Unavailable Rachel Miller MD (Jack) Unavailable Unavailable Rachel Miller MD (Jack) Unavailable Unavailable Rachel Miller MD (Jack) Unavailable Unavailable Rachel Miller MD (Jack) Unavailable Unavailable Rachel Miller MD (Jack) Unavailable Unavailable Rachel Miller MD (Jack) Unavailable Unavailable Rachel Miller MD (Jack) Unavailable Unavailable Rachel Miller MD (Jack) Unavailable Unavailable Rachel Miller MD (Jack) Unavailable Unavailable Tin, Rachel Patsy (Isac) MD Unavailable Unavailable Tin, Rachel Patsy (Isac) MD Unavailable Unavailable Tin, Rachel Patsy (Isac) MD Unavailable Unavailable Tin, Rachel Patsy (Isac) MD Unavailable Unavailable Tin, Rachel Patsy (Isac) MD Unavailable Unavailable Tin, Rachel Patsy (Isac) MD Unavailable Unavailable Tin, Rachel Patsy (Isac) MD Unavailable Unavailable Tin, Rachel Patsy (Isac) MD Unavailable Unavailable Tin, Rachel Patsy (Isac) MD Unavailable Unavailable Tin, Rachel Patsy (Isac) MD Unavailable Unavailable Tin, Rachel Patsy (Isac) MD Unavailable Unavailable Tin, Rachel Patsy (Isac) MD Unavailable Unavailable Tin, Rachel Patsy (Isac) MD Unavailable Unavailable Tin, Rachel Patsy (Isac) MD Unavailable Unavailable Tin, Rachel Patsy (Isac) MD Unavailable Unavailable Tin, Rachel Patsy (Isac) MD Unavailable Unavailable Tin, Rachel Patsy (Isac) MD Unavailable Unavailable Tin, Rachel Patsy (Isac) MD Unavailable Unavailable Tin, Rachel Patsy (Isac) MD Unavailable Unavailable Tin, Rachel Patsy (Isac) MD Unavailable Unavailable Tin, Rachel Patsy (Isac) MD Unavailable Unavailable Tin, Rachel Patsy (Isac) MD Unavailable Unavailable Tin, Rachel Patsy (Isac) MD Unavailable Unavailable Tin, Rachel Patsy (Isac) MD Unavailable Unavailable Tin, Rachel Patsy (Isac) MD Unavailable Unavailable Tin, Rachel Patsy (Isac) MD Unavailable Unavailable Tin, Rachel Patsy (Isac) MD Unavailable Unavailable Tin, Rachel Patsy (Isac) MD Unavailable Unavailable Tin, Rachel Patsy (Isac) MD Unavailable Unavailable Tin, Rachel Patsy (Isac) MD Unavailable Unavailable Tin, Rachel Patsy (Isac) MD Unavailable Unavailable Tin, Rachel Patsy (Isac) MD Unavailable Unavailable Tin, Rachel Patsy (Isac) MD Unavailable Unavailable Tin, Rachel Patsy (Isac) MD Unavailable Unavailable Tin, Rachel Patsy (Isac) MD Unavailable Unavailable Tin, Rachel Patsy (Isac) MD Unavailable Unavailable Tin, Rachel Patsy (Isac) MD Unavailable Unavailable Tin, Rachel Patsy (Isac) MD Unavailable Unavailable Tin, Rachel Patsy (Isac) MD Unavailable Unavailable Tin, Rachel Patsy (Isac) MD Unavailable Unavailable Tin, Rachel Patsy (Isac) MD Unavailable Unavailable Tin, Rachel Patsy (Isac) MD Unavailable Unavailable Tin, Rachel Patsy (Isac) MD Unavailable Unavailable Rachel Miller MD (Jack) Unavailable Unavailable MCELHERAN, WALTER PA Unavailable Unavailable MCELHERAN, WALTER PA Unavailable Unavailable MCELHERAN, WALTER PA Unavailable Unavailable MCELHERAN, WALTER PA Unavailable Unavailable MCELHERAN, WALTER PA Unavailable Unavailable MCELHERAN, WALTER PA Unavailable Unavailable MCELHERAN, WALTER PA Unavailable Unavailable MCELHERAN, WALTER PA Unavailable Unavailable MCELHERAN, WALTER PA Unavailable Unavailable MCELHERAN, WALTER PA Unavailable Unavailable MCELHERAN, WALTER PA Unavailable Unavailable MCELHERAN, WALTER PA Unavailable Unavailable MCELHERAN, WALTER PA Unavailable Unavailable MCELHERAN, WALTER PA Unavailable Unavailable MCELHERAN, WALTER PA Unavailable Unavailable MCELHERAN, WALTER PA Unavailable Unavailable MCELHERAN, WALTER PA Unavailable Unavailable MCELHERAN, WALTER PA Unavailable Unavailable MCELHERAN, WALTER PA Unavailable Unavailable MCELHERMEEK, WALTER PA Unavailable Unavailable MCELHERAN, WALTER PA Unavailable Unavailable MCELHERAN, WALTER PA Unavailable Unavailable MCELHERMEEK, WALTER PA Unavailable Unavailable MCELHERMEEK, WALTER PA Unavailable Unavailable MCELHERMEEK, WALTER PA Unavailable Unavailable MCELHERMEEK, WALTER PA Unavailable Unavailable MCELHERMEEK, WALTER PA Unavailable Unavailable MCELHERAN, WALTER PA Unavailable Unavailable Fish, Tracy Vanita MPAS, PA-C Unavailable Unavailabl e Fish, [facility], [facility] Unavailable Unavailabl e Fish, [facility], PA-C Unavailable Unavailabl e Fish, [facility], PA-C Unavailable Unavailabl e Fish, [facility], PA-C Unavailable Unavailabl e Fish, [facility], PA-C Unavailable Unavailabl e Fish, [facility], PA-C Unavailable Unavailabl e Fish, [facility], PA-C Unavailable Unavailabl e Fish, [facility], PA-C Unavailable Unavailabl e Fish, [facility], PA-C Unavailable Unavailabl e Fish, [facility], PA-C Unavailable Unavailabl e Fish, [facility], PA-C Unavailable Unavailabl e Fish, [facility] Unavailable Unavailabl e Fish, [facility], [facility]C Unavailable Unavailabl e Fish, [facility], PA-C Unavailable Unavailabl e Fish, [facility], PA-C Unavailable Unavailabl e Fish, [facility], PA-C Unavailable Unavailabl e Fish, [facility], PA-C Unavailable Unavailabl e Fish, [facility], PA-C Unavailable Unavailabl e Fish, [facility], PA-C Unavailable Unavailabl e Fish, [facility], PA-C Unavailable Unavailabl e Fish, [facility], PA-C Unavailable Unavailabl e Fish, [facility], PA-C Unavailable Unavailabl e Fish, [facility], PA-C Unavailable Unavailabl e Fish, [facility], PA-C Unavailable Unavailabl e Fish, [facility], PA-C Unavailable Unavailabl e Fish, [facility], PA-C Unavailable Unavailabl e Fish, [facility], PA-C Unavailable Unavailabl e Fish, [facility], PA-C Unavailable Unavailabl e Fish, [facility], PA-C Unavailable Unavailabl e Fish, [facility], PA-C Unavailable Unavailabl e Fish, [facility], PA-C Unavailable Unavailabl e Fish, [facility], PA-C Unavailable Unavailabl e Narciso Monaco MD Unavailable Unavailable Narciso Monaco MD Unavailable Unavailable Narciso Monaco MD Unavailable Unavailable Narciso Monaco MD Unavailable Unavailable Narciso Monaco MD Unavailable Unavailable Narciso Monaco MD Unavailable Unavailable Narciso Monaco MD Unavailable Unavailable Narciso Monaco MD Unavailable Unavailable Narciso Monaco MD Unavailable Unavailable Narciso Monaco MD Unavailable Unavailable Narciso Monaco MD Unavailable Unavailable Narciso Monaco MD Unavailable Unavailable Narciso Monaco MD Unavailable Unavailable Narciso Monaco MD Unavailable Unavailable Narciso Monaco MD Unavailable Unavailable Narciso Monaco MD Unavailable Unavailable Narciso Monaco MD Unavailable Unavailable Narciso Monaco MD Unavailable Unavailable Narciso Monaco MD Unavailable Unavailable Narciso Monaco MD Unavailable Unavailable Narciso Monaco MD Unavailable Unavailable Carlos Enrique, Narciso Aguilera MD Unavailable Unavailable Carlos Enrique, Narciso Aguilera MD Unavailable Unavailable Carlos Enrique, Narciso Aguilera MD Unavailable Unavailable Carlos Enrique, Narciso Aguilera MD Unavailable Unavailable Carlos Enrique, Narciso Aguilera MD Unavailable Unavailable Trickey, J Clary PA Unavailable Unavailable Trickey, J Clary PA Unavailable Unavailable Trickey, J Clary PA Unavailable Unavailable Trickey, J Clary PA Unavailable Unavailable Trickey, J Clary PA Unavailable Unavailable Trickey, J Clary PA Unavailable Unavailable Trickey, J Clary PA Unavailable Unavailable Trickey, J Clary PA Unavailable Unavailable Trickey, J Clary PA Unavailable Unavailable Trickey, J Clary PA Unavailable Unavailable Trickey, J Clary PA Unavailable Unavailable Trickey, J Clary PA Unavailable Unavailable Trickey, J Clary PA Unavailable Unavailable Trickey, J Clary PA Unavailable Unavailable Trickey, J Clary PA Unavailable Unavailable Trickey, J Clary PA Unavailable Unavailable Trickey, J Clary PA Unavailable Unavailable Trickey, J Clary PA Unavailable Unavailable Trickey, J Clary PA Unavailable Unavailable Trickey, J Clary PA Unavailable Unavailable Trickey, J Clary PA Unavailable Unavailable Trickey, J Clary PA Unavailable Unavailable Trickey, J Clary PA Unavailable Unavailable Trickey, J Clary PA Unavailable Unavailable Trickey, J Clary PA Unavailable Unavailable Trickey, J Clary PA Unavailable Unavailable Trickey, J Clary PA Unavailable Unavailable Trickey, J Clary PA Unavailable Unavailable Trickey, J Clary PA Unavailable Unavailable Trickey, J Clary PA Unavailable Unavailable Trickey, J Clary PA Unavailable Unavailable Trickey, J Clary PA Unavailable Unavailable Trickey, J Clary PA Unavailable Unavailable Trickey, J Clary PA Unavailable Unavailable Trickey, J Clary PA Unavailable Unavailable Trickey, J Clary PA Unavailable Unavailable Trickey, J Clary PA Unavailable Unavailable Trickey, J Clary PA Unavailable Unavailable Trickey, J Clary PA Unavailable Unavailable Trickey, J Clary PA Unavailable Unavailable Trickey, J Clary PA Unavailable Unavailable Trickey, J Clary PA Unavailable Unavailable Trickey, J Clary PA Unavailable Unavailable Trickey, J Clary PA Unavailable Unavailable Trickey, J Clary PA Unavailable Unavailable Trickey, J Clary PA Unavailable Unavailable Trickey, J Clary PA Unavailable Unavailable Trickey, J Clary PA Unavailable Unavailable Meng Cardozo Unavailable Unavailable Cardozo, Meng Unavailable Unavailable Cardozo, Meng Unavailable Unavailable Cardozo, Meng Unavailable Unavailable Cardozo, Meng Unavailable Unavailable Cardozo, Meng Unavailable Unavailable Cardozo, Meng Unavailable Unavailable Cardozo, Meng Unavailable Unavailable Cardozo, Meng Unavailable Unavailable Cardozo, Meng Unavailable Unavailable Cardozo, Meng Unavailable Unavailable Cardozo, Meng Unavailable Unavailable Cardozo, Meng Unavailable Unavailable Cardozo, Meng Unavailable Unavailable Cardozo, Meng Unavailable Unavailable Cardozo, Meng Unavailable Unavailable Cardozo, Meng Unavailable Unavailable Cardozo, Meng Unavailable Unavailable Cardozo, Meng Unavailable Unavailable Cardozo, Meng Unavailable Unavailable Cardozo, Meng Unavailable Unavailable Cardozo, Meng Unavailable Unavailable Cardozo, Meng Unavailable Unavailable Cardozo, Meng Unavailable Unavailable Cardozo, Meng Unavailable Unavailable Cardozo, Meng Unavailable Unavailable Cardozo, Meng Unavailable Unavailable Cardozo, Meng Unavailable Unavailable Cardozo, Meng Unavailable Unavailable Cardozo, Meng Unavailable Unavailable Cardozo, Meng Unavailable Unavailable Cardozo, Meng Unavailable Unavailable Cardozo, Meng Unavailable Unavailable Cardozo, Meng Unavailable Unavailable Cardozo, Meng Unavailable Unavailable Cardozo, Meng Unavailable Unavailable Cardozo, Meng Unavailable Unavailable Cardozo, Meng Unavailable Unavailable Cardozo, Meng Unavailable Unavailable Cardozo, Meng Unavailable Unavailable Cardozo, Meng Unavailable Unavailable Cardozo, Meng Unavailable Unavailable Cardozo, Meng Unavailable Unavailable Cardozo, Meng Unavailable Unavailable Laxton, A Sondra Unavailable Unavailable Laxton, A Sondra Unavailable Unavailable Laxton, A Sondra Unavailable Unavailable Laxton, A Sondra Unavailable Unavailable Laxton, A Sondra Unavailable Unavailable CHABRASHVILI, TINATIN Unavailable Unavailable AKBAR DO, NARCISO SOLIMAN MD Unavailable Unavailable AKBAR DO, NACRISO SOLIMAN MD Unavailable Unavailable ALEKSIEJUK, RANDELL DE ANDA Unavailable Unavailable ALEKSIEJUK, RANDELL DE ANDA Unavailable Unavailable ALEKSIEJUK, RANDELL DE ANDA Unavailable Unavailable ALEKSIEJUK, RANDELL DE ANDA Unavailable Unavailable MichaelRicky paul Unavailable LangeDaphne cross Unavailable Re-disclosure Warning The records that you are about to access may contain information from federally-assisted alcohol or drug abuse programs. If such information is present, then the following federally mandated warning applies: This information has been disclosed to you from records protected by federal confidentiality rules (42 CFR part 2). The federal rules prohibit you from making any further disclosure of this information unless further disclosure is expressly permitted by the written consent of the person to whom it pertains or as otherwise permitted by 42 CFR part 2. A general authorization for the release of medical or other information is NOT sufficient for this purpose. The Federal rules restrict any use of the information to criminally investigate or prosecute any alcohol or drug abuse patient.The records that you are about to access may contain highly sensitive health information, the redisclosure of which is protected by Article 27-F of the [facility] Public Health law. If you continue you may have access to information: Regarding HIV / AIDS; Provided by facilities licensed or operated by the [facility] Office of Mental Health; or Provided by the [facility] Office for People With Developmental Disabilities. If such information is present, then the following [facility] mandated warning applies: This information has been disclosed to you from confidential records which are protected by state law. State law prohibits you from making any further disclosure of this information without the specific written consent of the person to whom it pertains, or as otherwise permitted by law. Any unauthorized further disclosure in violation of state law may result in a fine or retirement sentence or both. A general authorization for the release of medical or other information is NOT sufficient authorization for further disc losure. Allergies and Adverse Reactions Type Description Substance Reaction Status Data Source(s ) Drug allergy Reglan Metoclopramide Tongue swelling Active eC W1 ([facility]) Drug allergy Bee Pollen Drug allergy swelled up wth trouble breathing Active eCW1 ([facility]) Drug allergy Cortisporin hydrocortisone / neomycin / polymyxin B Hive s Active eCW1 ([facility]) Neosporin Neosporin Neosporin Hives Active eCW1 ([facility]) Drug allergy altram altram Hives Active eCW1 ([facility]) Encounters Encounter Providers Location Date Indications Data Source(s ) Outpatient Attender: RANDELL CAO MD 01/31/2021 12:0 0:00 AM [facility] Outpatient Attender: Sondra Ryan 11/22/2020 12:00:00 A M [facility] Outpatient Attender: RANDELL CAO MDReferrer: TNAYA HUERTAS [id number] 10/25/2020 12:00:00 AM EST Chronic migraine without au ra, not intractable, without status migrainosus [facility] Chronic migraine without aura, not intra ctable, without status migrainosus [place] [address] [facility] [address] 10/14/2020 12:00:00 AM EST eCW1 ([facility]) Extended Individual Psychotherapy - 45 min Attender: Erin Lange [facility] 10/13/2020 05:00:00 AM EST - 10/13/2020 05:00:00 AM EST [facility] ([facility]) Attender: Daphne Lange 10/13/2020 12:00:00 AM EST [facility] ([facility]) Outpatient Attender: Vanita MAY PA-C Physical Therapy 09/30/2020 07:30:00 AM EST [facility] ([facility] ) Extended Individual Psychotherapy - 45 min Attender: Erin Lange [facility] 09/24/2020 10:00:00 AM EST - 09/24/2020 10:00:00 AM EST [facility] ([facility]) Attender: Daphne Lange 09/24/2020 12:00:00 AM EST [facility] ([facility]) Extended Individual Psychotherapy - 45 min Attender: Erin Lange [facility] 09/07/2020 02:00:00 AM EST - 09/07/2020 02:00:00 AM EST [facility] ([facility]) Attender: Daphne Lange 09/07/2020 12:00:00 AM EST [facility] ([facility]) Extended Individual [facility] - 45 [facility] 09:00:00 AM EST - 08/17/2020 09:00:00 AM EST [facility] ([facility]) Attender: Daphne Lange 08/17/2020 12:00:00 AM EST [facility] ([facility]) [place] [address] [address] 08/12/2020 12:00:00 AM EST eCW1 ([facility]) Out[place] [address] [address] 08/10/2020 12:00:00 AM EST eCW1 ([facility]) Outpatient Attender: RANDELL FLEMINGROSSANA MDReferrer: Sondra Ryan [id number] 08/02/2020 12:00:00 AM EST [facility] [place] [address] [address] 07/28/2020 12:00:00 AM EST eCW1 ([facility]) OFFICE OUTPATIENT VISIT 15 MINUTES Attender: Vanita MAY PA-C Physical Therapy 07/23/2020 02:15:00 PM EST [facility] ([facility]) Outpatient Attender: Sondra Maryjia [id number] 2019 12:00:00 AM EST - 07/22/2020 03:04:19 PM EST Drug-induced headache, not elsewhere cla ssified, not intractable [facility] Drug-induced headache, not elsewhere cla ssified, not intractable Outpatient Attender: Sondra Ryan 07/20/2020 12:00:00 A M [facility] OFFICE OUTPATIENT VISIT 15 MINUTES Attender: WALTER SCOTT Physical Therapy 07/16/2020 01:30:00 PM EST [facility] ([facility]) Extended Individual Psychotherapy - 45 min Attender: Erin Lange [facility] 07/14/2020 06:00:00 AM EST - 07/14/2020 06:00:00 AM EST [facility] ([facility]) Attender: Daphne Lange 07/14/2020 12:00:00 AM EST [facility] ([facility]) OFFICE OUTPATIENT NEW 30 MINUTES Attender: Meng Cardozo Physical Therapy 07/13/2020 08:00:00 AM EST [facility] ([facility]) Attender: Rachel Miller (Jack) MDReferrer: Clary SCOTT 06/30/2020 08:20:10 PM EDT [facility] Attender: Daphne Lange 06/25/2020 12:00:00 AM EDT [facility] ([facility]) Outpatient Attender: Vanita MAY PA-C Physical Therapy 06/22/2020 04:45:00 PM EDT [facility] ([facility]) Extended Individual Psychotherapy - 45 min Attender: Erin Lange [facility] 06/22/2020 03:00:00 AM EDT - 06/22/2020 03:00:00 AM EDT [facility] ([facility]) OFFICE OUTPATIENT VISIT 15 MINUTES Attender: Vanita MAY PA-C Physical Therapy 06/15/2020 08:30:00 AM EDT [facility] ([facility]) OFFICE OUTPATIENT VISIT 15 MINUTES Attender: WALTER SCOTT Physical Therapy 06/11/2020 03:00:00 PM EDT [facility] ([facility]) Extended Individual Psychotherapy - 45 min Attender: Erin Hawleyoza [facility] 05/26/2020 03:00:00 AM EDT - 05/26/2020 03:00:00 AM EDT [facility] ([facility]) Attender: Daphne Lange 05/26/2020 12:00:00 AM EDT [facility] ([facility]) Attender: Rachel Miller (Jack) MDReferrer: Clary SCOTT 05/14/2020 08:20:09 PM EDT [facility] Attender: Rachel Miller (Jack) MDReferrer: Clary SCOTT 05/14/2020 08:20:09 PM EDT [facility] Attender: Rachel Miller (Jack) MDReferrer: Clary SCOTT 05/13/2020 08:20:09 PM EDT [facility] Outpatient Attender: RANDELL CAO MDReferrer: Sondra Ryan [id number] 05/12/2020 12:00:00 AM EDT - 05/12/2020 09:57:30 AM ED T Migraine with aura, intractable, without status migrainosus [facility] Migraine with aura, intractable, without status migrainosus Outpatient Attender: WALTER SCOTT Physical Therapy 04/26/2020 11:30:00 AM EDT [facility] ([facility]) Attender: Rachel Miller (Jack) MDReferrer: Clary SCOTT 04/21/2020 08:20:08 PM EDT [facility] Outpatient Attender: Vanita MAY PA-C Physical Therapy 04/20/2020 08:30:00 AM EDT [facility] ([facility]) Outpatient Attender: Vanita MAY PA-C Physical Therapy 04/13/2020 10:15:00 AM EDT [facility] ([facility]) Outpatient Attender: Sondra Ryan [id number] 2019 12:00:00 AM EDT - 03/15/2020 09:32:10 AM EDT Migraine with aura, intractable, without status migrainosus [facility] Migraine with aura, intractable, without status migrainosus Office Visit Attender: Willy Monaco MD Physical Therapy 08:15:00 AM EDT [facility] ([facility]) Outpatient Attender: Willy Monaco MD Physical Therapy 10:30:00 AM EDT [facility] ([facility]) Office Visit Attender: Willy Monaco MD Physical Therapy 01:30:00 PM EDT [facility] ([facility]) Outpatient Attender: Sondra Ryan 02/03/2020 12:00:[address] [facility] Attender: Ricky Morales 01/19/2020 12:00:0 0 AM EDT [facility] ([facility]) [id number]" Psychotherapy Attender: Ricky Rodriguez [facility] 01/16/2020 02:00:00 AM EDT - 01/16/2020 02:00:00 AM EDT [facility] ([facility]) [address] [address] 01/12/2020 12:00:00 AM EDT eCW1 ([facility]) Attender: Ricky Morales 01/09/2020 12:00:0 0 AM EDT [facility] ([facility]) [id number]"Psychotherapy [facility]: [facility] 01/07/2020 01:00:00 AM EDT - 01/07/2020 01:00:00 AM EDT [facility] ([facility]) Attender: Rachel Miller (Jack) MDReferrer: Clary SCOTT 01/01/2020 08:20:04 PM EDT [facility] Attender: Rachel ARAGON (Jack)eferrer: Clary SCOTT 12/31/2019 08:20:04 PM EDT [facility] Attender: Ricky Morales 12/26/2019 12:00:0 0 AM EDT [facility] ([facility]) Attender: Rachel Miller (Jack) MDReferrer: Clary SCOTT 12/25/2019 08:20:04 PM EDT [facility] [id number]"Psychotherapy Attender: Ricky [facility] 12/24/2019 03:00:00 AM EDT - 12/24/2019 03:00:00 AM EDT [facility] ([facility]) [facility] Telemed Dia Eval no med Attender: Ricky Jeffersbeverly [facility] 12/16/2019 04:15:00 AM EDT - 12/16/2019 04:15:00 AM EDT [facility] ([facility]) Attender: Ricky Morales 12/16/2019 12:00:0 0 AM EDT [facility] ([facility]) Attender: Rachel ARAGON (Jack)eferrer: Clary SCOTT 12/01/2019 08:20:03 PM EDT [facility] Attender: Ricky Morales 11/24/2019 12:00:0 0 AM EDT [facility] ([facility]) Extended Individual Psychotherapy - 45 min Attender: Rory mariee [facility] 11/21/2019 01:00:00 AM EDT - 11/21/2019 01:00:00 AM EDT [facility] ([facility]) Outpatient Attender: Sondra Ryan [id number] 2019 12:00:00 AM EST - 10/30/2019 03:18:36 PM EST Chronic migraine without aura, not intra ctable, without status migrainosus [facility] Chronic migraine without aura, not intra ctable, without status migrainosus Outpatient Attender: JANNY WEBBER DO 10/20/2019 12:00:00 AM EST [facility] [address] [facility] [address] 10/13/2019 12:00:00 AM EST eCW1 ([facility]) Medications Medication Brand Name Start Date Product Form Dose Route Admi nistrative Instructions Pharmacy Instructions Status Indications Reaction Description Data Source(s) 750 mg 09/22/2020 12:00:00 AM EST tablet 60 TAKE ONE TABLET BY MOUTH TWICE A DAY TAKE ONE TABLET BY MOUTH TWICE A DAY SOLD: 10/26/2020 [facility] 750 mg 09/22/2020 12:00:00 AM EST tablet 60 TAKE ONE TABLET BY MOUTH TWICE A DAY TAKE ONE TABLET BY MOUTH TWICE A DAY SOLD: 09/22/2020 [facility] Levetiracetam 750 MG Oral Tablet levETIRAcetam 750 MG Oral Tablet (KEPPRA) levETIRAcetam 750 MG Oral Tablet (KEPPRA) 09/22/2020 12:00:00 AM EST active 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, unspecified epilepsy type TAKE ONE TABLET BY MOUTH TWICE A DAY [facility] 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, unspecified epilepsy type 100 mg 09/01/2020 12:00:00 AM EST tablet 30 TAKE ONE TABLET BY MOUTH EVERY DAY TAKE ONE TABLET BY MOUTH EVERY DAY SOLD: 09/04/2020 [facility] Sulfamethoxazole 800 MG / Trimethoprim 1 60 MG Oral Tablet [Bactrim] Bactrim DS 800-160 MG Bactrim DS 800-160 MG 08/12/2020 12:00:00 AM EST 1.0 {table t} active Bactrim DS 800-160 MG eCW1 ( [facility]ly [facility]) Sulfamethoxazole 800 MG / Trimethoprim 160 MG Oral Tab let 800-160 mg SULFAMETHOXAZOLE/TRIMETHOPRIM 08/12/2020 12:00:00 AM EST tablet 6 TAKE ONE TABLET BY MOUTH TWICE A DAY TAKE ONE TABLET BY MOUTH TWICE A DAY SOLD: 08/12/2020 [facility] Sulfamethoxazole 800 MG / Trimethoprim 1 60 MG Oral Tablet [Bactrim] Bactrim DS 800-160 MG Bactrim DS 800-160 MG 08/12/2020 12:00:00 AM EST 1.0 {table t} active Bactrim DS 800-160 MG eCW1 ( [facility]) Sulfamethoxazole 800 MG / Trimethoprim 1 60 MG Oral Tablet [Bactrim] Bactrim DS 800-160 MG Bactrim DS 800-160 MG 08/12/2020 12:00:00 AM EST 1.0 {table t} active Bactrim DS 800-160 MG eCW1 ( [facility]) 180 mg 07/27/2020 12:00:00 AM EST capsule 90 TAKE ONE CAPSULE BY MOUTH THREE TIMES A DAY TAKE ONE CAPSULE BY MOUTH THREE TIMES A DAY SOLD: 07/27/2020 [facility] 100 mg 07/23/2020 12:00:00 AM EST capsule 60 TAKE 1 TABLET AT BEDTIME FOR 1 WEEK THEN INCREASE TO 1 TABLET TWO TIMES A DAY FOR SECOND WEEK, THEN INCREASE TO THREE TIMES A DAY FOR 3RD WEEK TAKE 1 TABLET AT BEDTIME FOR 1 WEEK THEN INCREASE TO 1 TABLET TWO TIMES A DAY FOR SECOND WEEK, THEN INCREASE TO THREE TIMES A DAY FOR 3RD WEEK SOLD: 07/23/2020 [facility] 10 mg 07/23/2020 12:00:00 AM EST tablet 20 TAKE ONE TABLET BY MOUTH EVERY DAY NEEDED FOR PAIN TAKE ONE TABLET BY MOUTH EVERY DAY NEEDED FOR PAIN SOLD: 07/23/2020 [facility] gabapentin 100 MG Oral Capsule Gabapentin 07/23/2020 12:00:00 AM EST ORAL active [facility] ([facility]) 50 mg 07/23/2020 12:00:00 AM EST tablet 9 TAKE TWO TABLETS BY MOUTH NEEDED FOR MIGRAINE DIRECTED TAKE TWO TABLETS BY MOUTH NEEDED FOR MIGRAINE DIRECTED SOLD: 07/23/2020 [facility] 50 mg 07/23/2020 12:00:00 AM EST tablet 45 TAKE 1 & 1/2 TABLETS BY MOUTH EVERY EVENING TAKE 1 & 1/2 TABLETS BY MOUTH EVERY EVENING SOLD: 07/23/2020 [facility] Ketorolac Tromethamine 10 MG Oral Tablet Ketorolac Tromethamine 10 MG Oral Tablet (TORADOL) Ketorolac Tromethamine 10 MG Oral Tablet (TORADOL) 08/2020 12:00:00 AM EST 10 mg Oral active Medication overu se headache Take 1 tablet by mouth daily as needed for Pain 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 Chronic migraine without aura without st atus migrainosus, not intractable Sucralfate 1000 MG Oral Tablet Sucralfate 1 GM Oral Ta blet (CARAFATE) Sucralfate 1 GM Oral Tablet (CARAFATE) 07/01/2020 12:00:00 AM EDT 1 g Oral active Take 1 g by mouth Three times daily as needed [facility] 1 gram 07/01/2020 12:00:00 AM EDT tablet 90 TAKE ONE TABLET BY MOUTH THREE TIMES A DAY NEEDED TAKE ONE TABLET BY MOUTH THREE TIMES A DAY NEEDED S OLD: 07/03/2020 [facility] 10 mg 07/01/2020 12:00:00 AM EDT capsule 90 TAKE ONE CAPSULE BY MOUTH THREE TIMES A DAY NEEDED FOR PAIN TAKE ONE CAPSULE BY MOUTH THREE TIMES A DAY NEEDED FOR PAIN SOLD: 07/03/2020 [facility] 400-80 mg 06/15/2020 12:00:00 AM EDT tablet 20 TAKE ONE TABLET BY MOUTH TWICE A DAY FOR 10 DAYS TAKE ONE TABLET BY MOUTH TWICE A DAY FOR 10 DAYS SOLD: 06/15/2020 [facility] Sulfamethoxazole 400 MG / Trimethoprim 80 MG Oral Tablet [Ba ctrim] Bactrim 06/15/2020 12:00:00 AM EDT ORAL completed [facility] ([facility]) 750 mg 06/09/2020 12:00:00 AM EDT tablet 60 TAKE ONE TABLET BY MOUTH TWICE A DAY TAKE ONE TABLET BY MOUTH TWICE A DAY SOLD: 08/22/2020 [facility] 750 mg 06/09/2020 12:00:00 AM EDT tablet 60 TAKE ONE TABLET BY MOUTH TWICE A DAY TAKE ONE TABLET BY MOUTH TWICE A DAY SOLD: 06/13/2020 [facility] 750 mg 06/09/2020 12:00:00 AM EDT tablet 60 TAKE ONE TABLET BY MOUTH TWICE A DAY TAKE ONE TABLET BY MOUTH TWICE A DAY SOLD: 07/19/2020 [facility] Levetiracetam 750 MG Oral Tablet levETIRAcetam 750 MG Oral Tablet (KEPPRA) levETIRAcetam 750 MG Oral Tablet (KEPPRA) 06/08/2020 12:00:00 AM EDT 750 mg Oral aborted 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, unspecified epilepsy type Take 1 tablet by mouth Two Times Daily [facility] 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, unspecified epilepsy type 50 mcg/actuation 06/01/2020 12:00:00 AM EDT spray,suspension 16 SPRAY TWO SPRAYS IN EACH NOSTRIL EVERY DAY SPRAY TWO SPRAYS IN EACH NOSTRIL EVERY DAY SOLD: 06/01/2020 [facility] 30 mg 06/01/2020 12:00:00 AM EDT tablet 40 TAKE ONE TABLET BY MOUTH FOUR TIMES A DAY NEEDED FOR 10 DAYS TAKE ONE TABLET BY MOUTH FOUR TIMES A DA Y NEEDED FOR 10 DAYS SOLD: 06/01/2020 [facility] 20 mg 05/07/2020 12:00:00 AM EDT tablet 10 TAKE TWO TABLETS BY MOUTH EVERY MORNING FOR 5 DAYS TAKE TWO TABLETS BY MOUTH EVERY MORNING FOR 5 DAYS EMIL [facility] 25 mg 05/07/2020 12:00:00 AM EDT tablet 20 TAKE ONE TABLET BY MOUTH FOUR TIMES A DAY FOR 5 DAYS TAKE ONE TABLET BY MOUTH FOUR TIMES A DAY FOR 5 DAYS SOLD: 05/07/2020 [facility] 75 mg 04/22/2020 12:00:00 AM EDT tablet 30 TAKE ONE TABLET BY MOUTH EVERY DAY TAKE ONE TABLET BY MOUTH EVERY DAY SOLD: 04/24/2020 [facility] 10 mg 03/15/2020 12:00:00 AM EDT tablet 20 TAKE ONE TABLET BY MOUTH EVERY 6 HOURS NEEDED FOR PAIN FOR UP TO 5 DAYS TAKE ONE TABLET BY MOUTH EVERY 6 HOURS NEEDED FOR PAIN FOR UP TO 5 DAYS SOLD: 03/16/2020 [facility] Riboflavin 400 MG Oral Capsule Riboflavin 400 MG Oral Capsul e 03/15/2020 12:00:00 AM EDT 400 mg Oral active 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 naomi migraine without aura without status migrainosus, not intractableIntractable migraine with aura without status migrainosus Take 400 mg by mouth daily [facility] Chronic migraine without aura without st atus migrainosus, not intractable Intractable migraine with aura without s tatus migrainosus Amitriptyline Hydrochloride 50 MG Oral T ablet Amitriptyline HCl 50 MG Oral Tablet (ELAVIL) Amitriptyline HCl 50 MG Oral Tablet (ELAVIL) 0 12:00:00 AM EDT 50 mg Oral aborted Intractabl e migraine with aura without status migrainosus Take 1 tablet by mouth nightly [facility] Intractable migraine with aura without s tatus migrainosus Ondansetron 4 MG Oral Tablet Ondansetron HCl 4 MG Oral Tablet (ZOFRAN) Ondansetron HCl 4 MG Oral Tablet (ZOFRAN) 03/15/2020 12:00:00 AM EDT 4 mg Oral active Chronic migraine without aura without status migrainosus, not intractableIntractable migraine with aura without status migrainosus Take 1 tablet by mouth every 8 (eight) hours as needed for Nausea 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 Chronic migraine without aura without st atus migrainosus, not intractable Intractable migraine with aura without s tatus migrainosus Sumatriptan 50 MG Oral Tablet SUMAtriptan Succinate 50 MG Oral Tablet (IMITREX) SUMAtriptan Succinate 50 MG Oral Tablet (IMITREX) 03/15/2020 12:00:00 AM EDT 100 mg Oral aborted Chronic migrain e without aura without status migrainosus, not intractable Take 2 tablets by mouth as need ed for Migraine [facility] Chronic migraine without aura without st atus migrainosus, not intractable 4 mg 03/15/2020 12:00:00 AM EDT tablet 20 TAKE ONE TABLET BY MOUTH EVERY 8 HOURS NEEDED FOR NAUSEA TAKE ONE TABLET BY MOUTH EVERY 8 HOURS A S NEEDED FOR NAUSEA SOLD: 03/16/2020 [facility] 50 mg 03/15/2020 12:00:00 AM EDT tablet 9 TAKE TWO TABLETS BY MOUTH NEEDED FOR MIGRAINE TAKE TWO TABLETS BY MOUTH NEEDED FOR MIGRAINE SOLD: 03/16/2020 [facility] 50 mg 03/08/2020 12:00:00 AM EDT tablet 30 TAKE ONE TABLET BY MOUTH EVERY NIGHT TAKE ONE TABLET BY MOUTH EVERY NIGHT SOLD: 04/10/2020 [facility] Amitriptyline Hydrochloride 50 MG Oral T ablet Amitriptyline HCl 50 MG Oral Tablet (ELAVIL) Amitriptyline HCl 50 MG Oral Tablet (ELAVIL) 0 12:00:00 AM EDT 50 mg Oral aborted Intractabl e migraine with aura without status migrainosus Take 1 tablet by mouth nightly [facility] Intractable migraine with aura without s tatus migrainosus Levetiracetam 750 MG Oral Tablet levETIRAcetam 750 MG Oral Tablet (SARAPPRA) levETIRAcetam 750 MG Oral Tablet (KEPPRA) 03/08/2020 12:00:00 AM EDT 750 mg Oral active 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, unspecified epilepsy type Take 1 tablet by mouth Two Times Daily [facility] 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, unspecified epilepsy type 750 mg 03/08/2020 12:00:00 AM EDT tablet 60 TAKE ONE TABLET BY MOUTH TWICE A DAY TAKE ONE TABLET BY MOUTH TWICE A DAY SOLD: 04/10/2020 [facility] 750 mg 03/08/2020 12:00:00 AM EDT tablet 60 TAKE ONE TABLET BY MOUTH TWICE A DAY TAKE ONE TABLET BY MOUTH TWICE A DAY SOLD: 05/12/2020 [facility] 750 mg 03/08/2020 12:00:00 AM EDT tablet 60 TAKE ONE TABLET BY MOUTH TWICE A DAY TAKE ONE TABLET BY MOUTH TWICE A DAY SOLD: 03/11/2020 [facility] 50 mg 03/08/2020 12:00:00 AM EDT tablet 30 TAKE ONE TABLET BY MOUTH EVERY NIGHT TAKE ONE TABLET BY MOUTH EVERY NIGHT SOLD: 03/11/2020 [facility] Acetaminophen 325 MG / Oxycodone Hydroch loride 5 MG Oral Tablet oxyCODONE- Acetaminophen 5-325 MG Oral Tablet (PERCOCET) oxyCODONE-Acetaminophen 5-325 MG Oral Tablet (PERCOCET) 01/28/2020 12:00:00 AM EDT 1 {tbl} active [address] [facility] 5-325 mg 01/28/2020 12:00:00 AM EDT tablet 20 TAKE ONE TABLET BY MOUTH EVERY 4 HOURS NEEDED FOR POST SURGICAL PAIN MAXIMUM DAILY DOSE = FOUR TABLETS TAKE ONE TABLET BY MOUTH EVERY 4 HOURS NEEDED FOR POST SURGICAL PAIN MAXIMUM DAILY DOSE = FOUR TABLETS SOLD: 01/30/2020 [facility] 5-325 mg 01/23/2020 12:00:00 AM EDT tablet 20 TAKE ONE TABLET BY MOUTH EVERY 4 HOURS NEEDED FOR PAIN MAXIMUM DAILY DOSE = FOUR TABLETS TAKE ONE TABLET BY MOUTH EVERY 4 HOURS NEEDED FOR PAIN MAXIMUM DAILY DOSE = FOUR TABLETS SOLD: 01/23/2020 [facility] 5-325 mg 01/15/2020 12:00:00 AM EDT tablet 15 TAKE 1 TO 2 TABLETS BY MOUTH EVERY 6 HOURS NEEDED FOR POST SURGICAL PAIN, MAXIMUM DAILY DOSE = EIGHT TABLETS TAKE 1 TO 2 TABLETS BY MOUTH EVERY 6 CLARIBEL RS NEEDED FOR POST SURGICAL PAIN, MAXIMUM DAILY DOSE = EIGHT TABLETS SOLD: 01/19/2020 [facility] Acetaminophen 325 MG / Oxycodone Hydrochloride 5 MG Or al Tablet Oxycodone-Acetaminophen 01/08/2020 12:00:00 AM EDT ORAL active [facility] ([facility] ) Amitriptyline Hydrochloride 25 MG Oral Tablet AMITRIPTYLINE HCL 01/01/2020 12:00:00 AM EDT tablet 30 TAKE ONE TABLET BY MOUTH AT BEDTIME TAKE ONE TABLET BY MOUTH AT BEDTIME SOLD: 01/06/2020 [facility] Amitriptyline Hydrochloride 25 MG Oral Tablet AMITRIPTYLINE HCL 01/01/2020 12:00:00 AM EDT tablet 30 TAKE ONE TABLET BY MOUTH AT BEDTIME TAKE ONE TABLET BY MOUTH AT BEDTIME SOLD: 02/08/2020 [facility] 5-325 mg 12/03/2019 12:00:00 AM EDT tablet 15 TAKE ONE TABLET BY MOUTH EVERY 6 HOURS NEEDED FOR POST OP PAIN MAXIMUM DAILY DOSE = FOUR TABLETS TAKE ONE TABLET BY MOUTH EVERY 6 HOURS NEEDED FOR POST OP PAIN MAXIMUM DAILY DOSE = FOUR TABLETS SOLD: 12/04/2019 [facility] 50 mg 11/18/2019 12:00:00 AM EDT tablet 30 TAKE ONE TABLET BY MOUTH EVERY NIGHT TAKE ONE TABLET BY MOUTH EVERY NIGHT SOLD: 02/08/2020 [facility] 50 mg 11/18/2019 12:00:00 AM EDT tablet 30 TAKE ONE TABLET BY MOUTH EVERY NIGHT TAKE ONE TABLET BY MOUTH EVERY NIGHT SOLD: 11/21/2019 [facility] 50 mg 11/18/2019 12:00:00 AM EDT tablet 30 TAKE ONE TABLET BY MOUTH EVERY NIGHT TAKE ONE TABLET BY MOUTH EVERY NIGHT SOLD: 12/18/2019 [facility] Acetaminophen 325 MG / Oxycodone Hydrochloride 5 MG Or al Tablet [Percocet] Percocet 11/11/2019 12:00:00 AM EST completed [facility] ([facility]) 8 mg 11/03/2019 12:00:00 AM EST tablet 20 TAKE ONE TABLET BY MOUTH EVERY 8 HOURS NEEDED FOR NAUSEA OR VIMITING TAKE ONE TABLET BY MOUTH EVERY 8 HOURS A S NEEDED FOR NAUSEA OR VIMITING SOLD: 11/03/2019 [facility] 50 mg 10/31/2019 12:00:00 AM EST tablet 9 TAKE ONE TABLET BY MOUTH NEEDED FOR MIGRAINE TAKE ONE TABLET BY MOUTH NEEDED FOR MIGRAINE SOLD: 2019 [facility] Protriptyline Hydrochloride 10 MG Oral T ablet Protriptyline HCl 10 MG Oral Tablet (VIVACTIL) Protriptyline HCl 10 MG Oral Tablet (VIVACTIL) 12:00:00 AM EST 30 mg Oral aborted 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 Chronic migraine without aura without st atus migrainosus, not intractable Sumatriptan 50 MG Oral Tablet SUMAtriptan Succinate 50 MG Oral Tablet (IMITREX) SUMAtriptan Succinate 50 MG Oral Tablet (IMITREX) 10/30/2019 12:00:00 AM EST 50 mg Oral aborted Chronic migrain e without aura without status migrainosus, not intractable Take 1 tablet by mouth as needed for [facility] Chronic migraine without aura without st atus migrainosus, not intractable Ondansetron 8 MG Oral Tablet Ondansetron HCl 8 MG Oral Tablet (ZOFRAN) Ondansetron HCl 8 MG Oral Tablet (ZOFRAN) 10/30/2019 12:00:00 AM EST 8 mg Oral active Chronic migraine without aura without status migrainosus, not intractable Take 1 tablet by mouth every 8 (eight) hours as needed for Nausea or Vomiting 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 Chronic migraine without aura without st atus migrainosus, not intractable 1,250 mcg (50,000 unit) 10/14/2019 12:00:00 AM EST capsule 4 TAKE ONE CAPSULE BY MOUTH ONCE WEEKLY WITH A MEAL TAKE ONE CAPSULE BY MOUTH ONCE WEEKLY WITH A MEAL SOLD: 10/22/2019 [facility] 750 mg 09/04/2019 12:00:00 AM EST tablet 60 TAKE ONE TABLET BY MOUTH TWO TIMES A DAY TAKE ONE TABLET BY MOUTH TWO TIMES A DAY SOLD: 09/05/2019 [facility] 750 mg 09/04/2019 12:00:00 AM EST tablet 60 TAKE ONE TABLET BY MOUTH TWO TIMES A DAY TAKE ONE TABLET BY MOUTH TWO TIMES A DAY SOLD: 11/03/2019 [facility] Levetiracetam 750 MG Oral Tablet levETIRAcetam 750 MG Oral Tablet (KEPPRA) levETIRAcetam 750 MG Oral Tablet (KEPPRA) 09/04/2019 12:00:00 AM EST 750 mg Oral active 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, unspecified epilepsy type Take 1 tablet by mouth Two Times Daily [facility] 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, unspecified epilepsy type 750 mg 09/04/2019 12:00:00 AM EST tablet 60 TAKE ONE TABLET BY MOUTH TWO TIMES A DAY TAKE ONE TABLET BY MOUTH TWO TIMES A DAY SOLD: 10/04/2019 [facility] 750 mg 09/04/2019 12:00:00 AM EST tablet 60 TAKE ONE TABLET BY MOUTH TWO TIMES A DAY TAKE ONE TABLET BY MOUTH TWO TIMES A DAY SOLD: 02/08/2020 [facility] 750 mg 09/04/2019 12:00:00 AM EST tablet 60 TAKE ONE TABLET BY MOUTH TWO TIMES A DAY TAKE ONE TABLET BY MOUTH TWO TIMES A DAY SOLD: 01/06/2020 [facility] 750 mg 09/04/2019 12:00:00 AM EST tablet 60 TAKE ONE TABLET BY MOUTH TWO TIMES A DAY TAKE ONE TABLET BY MOUTH TWO TIMES A DAY SOLD: 12/04/2019 [facility] 10 mg 07/30/2019 12:00:00 AM EST tablet 30 TAKE ONE TABLET BY MOUTH EVERY EVENING TAKE ONE TABLET BY MOUTH EVERY EVENING SOLD: 09/27/2019 [facility] Protriptyline Hydrochloride 10 MG Oral T ablet Protriptyline HCl 10 MG Oral Tablet (VIVACTIL) Protriptyline HCl 10 MG Oral Tablet (VIVACTIL) 12:00:00 AM EST 10 mg Oral active 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 Ondansetron 4 MG Oral Tablet Ondansetron HCl 4 MG Oral Tablet (ZOFRAN) Ondansetron HCl 4 MG Oral Tablet (ZOFRAN) 4 mg Oral aborted Take 4 mg by mouth every 8 (eight) hours as needed for Nausea [facility] Insurance Providers Payer name Policy type / Coverage type Policy ID Covered democrat ID Covered democrat's relationship to [place] Policy [place] Plan Information DMITRIY ROSAL[place] [id number] [place] [id number] STEPHEN [id number] SP [id number] STEPHEN I [id number] Self [id number] [place] [id number] S [id number] STEPHEN [id number] SP [id number] Medicare Part B [facility] [id number] 0 [id number] [place] [id number] 0 [id number] [place]ID [place] [id number] MEDICARE [id number] SP [id number] MEDICAID M [id number] Self [id number] MEDICARE A [id number] Self [id number] MEDICARE [id number] SP [id number] MEDICAID [id number] SP [id number] Medicare Part B [facility] [id number] 0 [id number] MEDICAID M [id number] Self [id number] MEDICARE C [id number] S [id number] MEDICAID M [id number] S [id number] MEDICAID [id number] MEDICARE [id number] MEDICAID [id number] Elaine [id number] MEDICARE [id number] Elaine [id number] W21 ANSI-Medicaid [id number] ANSI-Medicare Part B [id number] MEDICARE [id number] SP [id number] ANSI-Medicare Part B [id number] ANSI-Medicaid [id number] Medicare Part B [facility] [id number] ANSI-Medicaid [id number] ANSI-Medicare Part B [id number] ANSI-Medicaid [id number] ANSI-Medicare Part B [id number] ANSI-Medicare Part B [id number] ANSI-Medicaid [id number] Medicaid Medicaid Self MEDICARE [id number] SP [id number] MEDICAID [id number] SP [id number] SELF PAY UNAVAILABLE SP UNAVAILA BLE [id number] Problems, Conditions, and Diagnoses Code Display Name Description Problem Type Effective Dates Data Source(s) F43.21 Adjustment disorder with depressed mood Adjustment Disorder, With depressed mood Condition 10/13/2020 12:00:00 AM EST [facility] ([facility]) F68.10 Factitious disorder, unspecified Factiti ous Disorder (includes Factitious Disorder Imposed on Self, Factitious Disorder Imposed on Another) Condition 10/13/2020 12:00:00 AM EST [facility] ([facility]) F43.21 Adjustment disorder with depressed mood Adjustment Disorder, With depressed mood Condition 01/19/2020 12:00:00 AM EDT [facility] ([facility]) F43.20 Adjustment disorder, unspecified Adjustment Diso rder, Unspecified Condition 11/24/2019 12:00:00 AM EDT [facility] ([facility]) G43.709 Chronic migraine without aur a, not intractable, without status migrainosus Chronic migraine without aura, not intra ctable, without status migrainosus Diagnosis 10/25/2020 02:43:27 PM EST [facility] Surgeries/Procedures Procedure Description Date Indications Data Source(s) Extended Individual Psychotherapy - 45 min 10/13/2020 12:00:00 AM EST - 10/13/2020 12:00:00 AM EST [facility] ([facility]) Extended Individual Psychotherapy - 45 min 12:00:00 AM EST [facility] ([facility]) Extended Individual Psychotherapy - 45 min 09/24/2020 12:00:00 AM EST - 09/24/2020 12:00:00 AM EST [facility] ([facility]) Extended Individual Psychotherapy - 45 min 1 12:00:00 AM EST [facility] ([facility]) Extended Individual Psychotherapy - 45 min 09/07/2020 12:00:00 AM EST - 09/07/2020 12:00:00 AM EST [facility] ([facility]) Extended Individual Psychotherapy - 45 min 0 12:00:00 AM EST [facility] ([facility]) Extended Individual Psychotherapy - 45 min 08/17/2020 12:00:00 AM EST - 08/17/2020 12:00:00 AM EST [facility] ([facility]) Extended Individual Psychotherapy - 45 min 0 12:00:00 AM EST [facility] ([facility]) X-Ray Spine Lumbosacral Complete Inc Bending Views Min Of 6 07/23/2020 12:00:00 AM EST [facility] ([facility] ) Extended Individual Psychotherapy - 45 min 07/14/2020 12:00:00 AM EST - 07/14/2020 12:00:00 AM EST [facility] ([facility]) Extended Individual Psychotherapy - 45 min 0 12:00:00 AM EST [facility] ([facility]) Needle electromyography, each extremity, with related paraspinal areas, when performed, done with nerve conduction, amplitude and latency/velocity study; complete, five or more muscles studied, innervated by three or more nerves or four or more spinal levels (list separately in addition to the code for primary procedure). 07/13/2020 12:00:00 AM EST [facility] ([facility] ) Nerve Conduction 9-10 Studies 07/13/2020 12:00:[address] [facility] ([facility] ) Extended Individual Psychotherapy - 45 min 06/25/2020 12:00:00 AM EDT - 06/25/2020 12:00:00 AM EDT [facility] ([facility]) Extended Individual Psychotherapy - 45 min 0 12:00:00 AM EDT [facility] ([facility]) APPLICATION CAST ELBOW FINGER SHORT ARM 06/11/2020 12: 00:00 AM EDT [facility] ([facility] ) MRI Lower Extremity Other Than Joint 06/07/2020 12:00: 00 AM EDT [facility] ([facility] ) MRI Lower Extremity Any Joint 06/07/2020 12:00:00 AM E DT [facility] ([facility] ) Extended Individual Psychotherapy - 45 min 05/26/2020 12:00:00 AM EDT - 05/26/2020 12:00:00 AM EDT [facility] ([facility]) Extended Individual Psychotherapy - 45 min 0 12:00:00 AM EDT [facility] ([facility]) RADEX ANKLE COMPLETE MINIMUM 3 VIEWS 04/20/2020 12:00: 00 AM EDT [facility] ([facility]) RADEX FOOT COMPLETE MINIMUM 3 VIEWS 04/20/2020 12:00:0 0 AM EDT [facility] ([facility]) RADEX ANKLE COMPLETE MINIMUM 3 VIEWS 04/13/2020 12:00: 00 AM EDT [facility] ([facility]) RADEX FOOT COMPLETE MINIMUM 3 VIEWS 04/13/2020 12:00:0 0 AM EDT [facility] ([facility]) RADEX SHOULDER COMPLETE MINIMUM 2 VIEWS 02/23/2020 12: 00:00 AM EDT [facility] ([facility]) RADEX ELBOW COMPLETE MINIMUM 3 VIEWS 02/23/2020 12:00: 00 AM EDT [facility] ([facility]) RADEX FOREARM 2 VIEWS 02/23/2020 12:00:00 AM EDT [facility] ([facility]) INCISION EXTENSOR TENDON SHEATH WRIST 01/19/2020 12:00 :00 AM EDT [facility] ([facility]) Endoscopy Wrist W/Release Transverse Carpal Ligament 01/19/2020 12:00:00 AM EDT [facility] ([facility]) Neuroplasty/Transposition, Ulnar Nerve AT Elbow 2019 12:00:00 AM EDT [facility] ([facility]) TEMPMHCTelemed 30" Psychotherapy 020 12:00:00 AM EDT - 01/19/2020 12:00:00 AM EDT [facility] ([facility]) TEMPMHCTelemed 30" Psychotherapy 01/16/2020 12:00:00 A M EDT [facility] ([facility]) [id number]"Psychotherapy 0 12:00:00 AM EDT - 01/09/2020 12:00:00 AM EDT [facility] ([facility]) [id number]"Psychotherapy 01/07/2020 12:00:00 AM EDT [facility] ([facility]) [id number]"Psychotherapy 0 12:00:00 AM EDT - 12/26/2019 12:00:00 AM EDT [facility] ([facility]) [id number]"Psychotherapy 12/24/2019 12:00:00 AM EDT [facility] ([facility]) MHC Telemed Diag Eval no med 12/16/2019 12:00:00 AM EDT - 12/16/2019 12:00:00 AM EDT [facility] ([facility]) MHC Telemed Diag Eval no med 12/16/2019 12:00:00 AM ED T [facility] ([facility]) Extended Individual Psychotherapy - 45 min 11/24/2019 12:00:00 AM EDT - 11/24/2019 12:00:00 AM EDT [facility] ([facility]) Extended Individual Psychotherapy - 45 min 0 12:00:00 AM EDT [facility] ([facility]) Results ID Date Data Source [id number] 10/25/2020 02:50:[address] [facility] Name Value Range Interpretation Code Description Data Marilia rce(s) Supporting Document(s) Progress Note [facility] BQPHNm8bXwWSQqUm40/ZDJqpEHCom5IbAWeuIKy9YWfgJKGlJ2CcGJH1iN0xTNH0CFoVMuIkKsUcGhY7 lbm [file] QnTjXXPxFJvnENJ3PJT+ED7uXRa+Hi6Kf1TkikN3kmXnOTacZWt7Kj3BSADFG4ZAAt== ID Date Data Source [id number] 09/30/2020 09:14:00 AM EST [facility] ([facility]) Name Value Range Interpretation Code Description Data Marilia rce(s) Supporting Document(s) HLA-B27 related Ag [Presence] Laboratory test result [facility] ([facility]) HLA-B*27 Negative B27 allele interpretation for all loci based on IMGT/HLA database version 3.38 This test was developed and its performance characteristics determined by [facility]. It has not been cleared or approved by the Food and Drug Administration. [facility] CLIA ID Number [id number] . This test was performed using PCR (Polymerase Chain Reaction)/SSOP (Sequence Specific Oligonucleotide Probes) technique. SBT (Sequence Based Typing) and/or SSP (Sequence Specific Primers) may be used as supplemental methods when necessary. Please contact [facility] Customer Service at if you have any questions. . Director of HLA Laboratory Dr Tapan Giraldo, PhD ID Date Data Source [id number] 09/30/2020 09:14:00 AM EST [facility] ([facility]) Name Value Range Interpretation Code Description Data Marilia rce(s) Supporting Document(s) Lyme Disease IgG/IgM Antibodie Laboratory test result 0.00-0.90 [facility] ([facility]) <content>Negative <0.91</content >
<content>Equivocal 0.91 - 1.09</content>
<content>Positive >1.09</content>
<content></content> Lyme Disease IgM Ab Quantitati Laboratory test result 0.00-0.79 [facility] ([facility]) <content>Negative <0.80</content >
<content>Equivocal 0.80 - 1.19</content>
<content>Positive >1.19</content>
<content>.</content>
<content>IgM levels may peak at 3-6 weeks post infection, then</content>
<content>gradually decline.</content>
<content></content> ID Date Data Source [id number] 09/30/2020 09:14:00 AM EST [facility] ([facility]) Name Value Range Interpretation Code Description Data Marilia rce(s) Supporting Document(s) Rheumatoid factor [Units/volume] in Serum or Plasma Laboratory test result [facility] ([facility]) <content>note:<nlbl:demographic_changed> </content>
<content></content> Urate [Mass/volume] in Serum or Plasma 4.8 mg/dL 2.6-6.0 [facility] ([facility]) <content>note:<nlbl:demographic_changed> </content>
<content></content> ID Date Data Source [id number] 09/30/2020 09:14:00 AM EST [facility] ([facility]) Name Value Range Interpretation Code Description Data Marilia rce(s) Supporting Document(s) Antinuclear Antibodies Direct Laboratory test [facility] Performed at: [facility] [address] [id number] Specialist Employee Labor Relations: Anny Woodard MD, Phone: [phone] Performed at: [facility] [address] [id number] Specialist Employee Labor Relations: Tapan Giraldo PhD, Phone: [phone] ID Date Data Source [id number] 09/30/2020 09:14:00 AM EST [facility] ([facility]) Name Value Range Interpretation Code Description Data Marilia rce(s) Supporting Document(s) C reactive protein [Mass/volume] in Serum or Plasma by High sensitivity method Laboratory test result 0.00-0.30 [facility] <content>note:<nlbl:demographic_changed> </content>
<content></content> Erythrocyte sedimentation rate by Westergren method 4 mm/hr 0-20 [facility] ([facility]) ID Date Data Source [id number] 09/30/2020 09:14:00 AM EST [facility] ([facility]) Name Value Range Interpretation Code Description Data Marilia rce(s) Supporting Document(s) White Blood Count 4.8 10 4.0-10.0 [facility] ([facility]) Hemoglobin 13.6 g/dL 12.0-15.5 [facility] ([facility]) Red Blood Count 4.79 10 4.00-5.40 [facility] ([facility]) Hematocrit 42.4 % 36.0-47.0 [facility] ([facility]) Mean Corpuscular Hemoglobin 28.4 pg 27.0-33.0 [facility] ([facility]) Mean Corpuscular Volume 88.5 fl 80.0-96.0 M [facility] ([facility]) Mean Corpuscular HGB Conc 32.1 g/dL 32.0-36.5 [facility] ([facility]) Red Cell Distribution Width 12.7 % 11.5-14.5 [facility] ([facility]) Platelet Count, Automated 285 10 150-450 [facility] ([facility]) Neutrophils % 63.9 % 36.0-66.0 [facility] ([facility]) Lymph % 26.3 % 24.0-44.0 [facility] ([facility]) Cache % 6.7 % 0.0-5.0 [facility] ([facility]) Immature Granulocyte % 0.4 % 0-3.0 [facility] ([facility]) Eos % 1.9 % 0.0-3.0 [facility] ([facility]) Baso % 0.8 % 0.0-1.0 [facility] ([facility]) Nucleated Red Blood Cell % 0.0 % 0-0 [facility] ([facility]) Neutrophils # 3.1 10 1.5-8.5 [facility] ([facility]) Lymph # 1.3 10 1.5-5.0 [facility] ([facility]) Cache # 0.3 10 0.0-0.8 [facility] ([facility]) Eos # 0.1 10 0.0-0.5 [facility] ([facility] ) Baso # 0.0 10 0.0-0.2 [facility] ([facility] ) ID Date Data Source [id number] 09/17/2020 12:00:00 AM EST [facility] Vanita Shelton Pa-C Patient Name: TIFF ROSALES [facility] Date of : [address] [address]- Date of Exam: 09/17/2020#: Fax: [phone] EXAM: MRI LUMBAR SPINE WITHOUT CONTRASTCLINICAL INFORMATION: Rule out disc herniation and stenosis. Otherintervertebral disc degeneration.TECHNIQUE:3T multiplanar MRI imaging of the lumbar spine was obtained using varioussequences.COMPARISON: MRI study of the lumbar spine is from 12/27/2015.MRI FINDINGS:Lumbar vertebral body heights are preserved. Alignment is normal. Discspaces are maintained in height and signal intensity on T1 and T2 weightedscans. The tip of the conus medullaris is normal in position andappearance at L1. No extravertebral abnormality is observed.There is no evidence of focal lumbar disc protrusion. Pedicles anposterior elements are intact. There is no evidence of spondylolysis orspondylolisthesis. There is minimal facet hypertrophy bilaterally at L4-5and L5-S1 with subcortical cyst formation seen consistent with earlyarthropathy. No foraminal narrowing or spinal stenosis is seen. 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 No focal disc protrusion, spinalstenosis, or foraminal narrowing seen.Accredited by the [employer] in MR.Isrrael Boss, JDNenita/Ronny amin for referring DMITRIY ROSALES to our office.Electronically Signed - ISRRAEL BOSS MD 09/17/20 13:34 Name Value Range Interpretation Code Description Data Marilia rce(s) Supporting Document(s) ID Date Data Source [id number] 09/01/2020 10:45:00 AM EST [facility] Name Value Range Interpretation Code Description Data Marilia rce(s) Supporting Document(s) Follow Up [facility] JAZJPd5oSqNLPdOrQHUvIoyPEFrkEIyzMXUcE2G9AHktIr5JWKdwrcYaFRSgGs6+EHMbFS7ncj9rXHXj gMy [file] 0h5tRk/9jg7XVN4cbWDZ0rwUkXh2pWk52PaCmqgd4/Alli/ZjczRgIcjw5X99LFzESNmwZbpQA8ISIm8O HMmojJ17R3vEjGyd9pmOimIUe0H8GlrrpO2RqNF4YO G0HHvz/c5dmJQo/GFrYpXlG/VdVtqSUaQfTNMiqXIpvvM4axV9LN3Ngp4MvBnkhEeqFILO0ScergU55f 1jHPFANpVXYxLnREd6NK2HVxViYsz/mS01DpAzfcnORfqGU2HrkJEy8Z/NfwmrOdLgS2V5GGxg8TVxro GuY9rFHEjoaXLFuGt/lCu4cCBZ2tPKNf06BTxXtzF4 3gU1cWIkyWla2W4XyhWWA4yy3yLec8NpIapEXe8rLFdfHIVxalMZHhiXemQtGDEAy9GZGd1vNfR6x/AUTO DAMAGE ESTIMATOR [file] GgPV5WJArDzi2T1y4UtH3SLebOenA4XRq5BRIETWxzUNj+[employer] Manager+W7b0PSYjBosutVMQkJyo6JQL6Z9NMxA [file] Luis Manuel+lpUKyw642f4tNVdMEFNM9+W9MREqYQUrEFjepp [file] /O0525oY27lih3I8nv48776lfRPpXAlSiozn2j2Dh8 mZcAHXj4jMGhgsVkQSqmLvYHn9PTTTOdOzCdagvocUEdBlEvdQwJX0ZKpmlFU/tRT3X4qOA5HI3JuZDQ jBRKZJCKzXzp1AplbyLsZr+y74CRYcxUA7V1X7Nr3dcuzm03Bi604cITNBAL467vUZNHM+TZamNqnt4p +o22JJ1EZZhN3L0dEAOQsGHoN7sjzLWD28aCAkizeK jOCD+Azk88VSErOclLCXqtW9qwBfR/aB5WKJH298usYhiEF8IKAl+zAuG120vMhilrHri/PwZZTa9gVF CCH0CL7ldpKR+isi7pAkGSJpSHpbSsZURTfLJuvcN3fg7XK8z1/QXFYElRxRP2n8kbeOvI7mcGYjhVrZ jp7jJtYoDO/Dck44/viINBmDdd9kF8ylWii+SuXkWz dBAVOdulALw2YEx2QChFGnw5qtLRgPUlOJKjdjqK2Ffh8JoiTkNr4Snqu9oU96fdlvOGEy/ldqjcjhI4 CymSIjkU23ZqTyQSOk7ztTLUW/e+7DvN+degreaser operator/V89ulMpRPkhrXFEM4pnXK4g+SvsqUx8qqpmvjGO4z5S D9fe6QDzbPOEvGpnurHMG1hjCeAFo3suYeZxkdt0Ts Xmii2hvMnWS2pWg1X69J71UgbghyrJKUUONWkD2mJ004sKNxxIUv8ychg5PP/5yyu4mndIMpDRQXiIqH pt/Oc5F4MB9kNLCLR2FAa0GQIu/X8y70o66TgpBFnVa8UoII2MFN50QIL9YWcoP95v26ljH4hNlXNbcq 5dz18vrkjukN3g3rfC1dnXEPDuTtCY21JdO583dsr7 Q7vfjLrCYNKgDBVKEtO8Zin6UfK/vYH0M5r0PbDIGAhlBWAtGvXz06d7oBBXp++60hi3M19nhJkG231H dnnWcS2lRHz8neW0+Hr5QW377rmiSNGhan94MrzuhtzY/oIp8W3Ar2pFEDYHLjhaypoabaufnkJqHKDL I1b3TJW+A8O+jIpa96dF7S2sEhMPXt+WdrXgdT2dKm arskqwHqRxIAC6NyBQ93ugoLzCoq0+as7c0zZImHDIWsvSkk/ywizbkm7IOfy5O+hHv6JpU21/Gb5bhE BVRW7V4gplyC+85sNrBXYn3oVjwlXOGZEQTuTSUqCO8DIQQuQpiZlylqv/KVPEX2uJb3Osf3SGz47i8r evp chief exploration officer/87sSBU7c11/rIpL8EuDxdGCPc36tUTBylMbs0e5 hTxJouc5aPx6VzGkgDG5nyocbVqDYoUVzF4qkbJyT4uoRGtfOZ6wRX9Fq7wc2XRaftpt61y4wapxUOGj /5h73UQLL5hUorPxCYGSVoDuMIgGlTHAClCiAZ9A4kYwxzeLZ7ITbxGUHaGDSiKTM9XpCvKsS9W6kaIz Bgl8w+XSRqOwu/HQOacsnG13vZWVkJZlbbjMaT41Fk EevIugPwHsAP2a/72+PPvZo0H/g68Zw4xdF8lSVGrjX+muFkxIHv/Eihu6wpYI66NVZQ82M4Y6D5Bmum sEP/uIBSMWwJFdzjm6u64cRF15J8u4j7SY/gpv9LMHu3xx9Hg1oDlv2WhaEuJYQMCtdMetR4n1TC697G yMy22ImKByBtVI7wb8FuD77Dd7VPUuVZUKZKyhhHzS BoWmgtzM7Msujzee5zhpJV6ZGu7r6QNKEwGCb/QA47t0FXZINzqJCeHcxMr+wuOdj0FT6GVV9SggN8LA SyffWaDMl1Zi4pHQebxUS6c7IetNHMQidmAqBFJDypZ8sL7+Xzet0CiGvPnAW8iT68EW1mYYUE/mAzFB 6tCvMkmyRiCLOF5EMPVCt4DCOex9XdkooEOPISRZRr [file] saOdaYv2eloa9Wn8YwZJ40ZwYh9RczKW2vY4JhNzgBAn5bQbk4Nvv/DRoPxBCKNARaq85/Jose Carlos/A9bqar [file] h2dN/Leonor+LW+6/EtlxRXAftKfzxxv2M+ira6YHRKPtFzEiXz0Za3cojPnKN+fb7geLFLtXFrN1R6bWVjP LlJavqXG+Y4ChlNKiLnIGLvmgfb9wAKHxGP8Npid/kAurX5U0AMFg2wdaqh88scOLJXU9umvatHmZQyT wMNVDJww/Vn+fvnzhaMz9KWmUKkbd+s3mB2clVyu1k uz2pz0EjisZ794T2FSg9Ev4QbtPp8Z9vebS9LrdzO2juBLwTMvrwCiTHNjGyqDG6Cm5/clinical evaluator/k5vgdzAG9 aY2LIx2s11V8B4rqLBgiPGp2qirR0YovF0S42CwFqk46PSgyZ/kV1LjOqEf/XfTGDcitqOflg8y6egsS bjc3bcgtGpsmj6QWx4QGVa3pOPVS2IFtepsSS5w4ZX E44E4iiLbsU0FwfCk8OIA4HgqR5HWpikEqKH3JyDocNzP0wFXew5d3VD7D3duQFop8soJ+3jV5Ya2MUL GAx/HdaNUZQJL68vFSA2Ti9F55Iw9+ockpBwPo/QegbG/LKARr45yYmz5o7Gioh2idlxakb8Vv/2bua8 5OPrXRgMY6sSgOxjclvNeNYaXrk4J6Wc5RPU1gRXEZ MadX/hhW0Hmt/aTD+5P1sAFa5ZocnFrZ63mDtoBBhtbiMQX1Ed/2pD9bmoBRBGIrPpRj5MROlkn5J95E JjvGaSzhRwJnyRm7Jmd88zSvTqKbCEZpKQ2AB7HedAsze1puPaqnWyCPjYZKNzJBg0Vke7XsJgtvOimK iquHoa4m2qD1kc2uhpbyRdlCT2WA6WV+P5Af3++/Ui z0PC8I33jfN1RDYdmv/6jgfFVHarW8MGpvyB/p/MpR8CF2GeLrNb7UlHUEDTz0iBDgj+DUil+apO6U54 7CkSdgi08S0AL6zIH2sxTT4LBEriehMVhXZzt8gifb//lfpTAr+uLis/4R+jJimM5CfOuDPjlsRMsrnF4 [file] NOjsGFvsligoQryHA9LS826bvXqaQpqFiRMr+PT1zhlwZJlhB3bnnKyozlP6Zrfx+of+JOSE CARLOS+3cMD0gnO wy1ETr5206xBaR0s1+8O1ZLR38VaLEN4i+G0HkCveGaeUt2MJ3kiWi/N/D7ENw36Nd1IsbCfEyW+lwip RQKF0FeBhn4Wz5UM0XkXrp72MvNKh9Gwb0sT5tvK7c 2/TtfBqKbBwAv6F4AJxZmqHdthctx+vjgvtVQEHIFZC5Qn1BU9PfpDP0RkP9zb9qrn5aoK6eOIFZU5te ftgUnmdulzBRD8ak+RP/Yoghx/VZnaqznbe+0+nh/ZLzJLvrveRzRu6RcFxWS6sM1A9G7OrANtEnwju0 bwP/jMWzLcS56qZIKCPjjGjikChk7SbhpXxv6XAx1w womQlc4decJ5uJQLX9GZmSksPD0wf7+l05V+qbNIaOBg5TtmhDdsTtF4YDpdPO1PzDGTTPKnu1RJ+Leonard [file] 5QiYKp6+cpN00KGa+accounts payable payroll coordinator+cfXVtX3sLB/nB2y8mCRTKUpO4tp8nRvUbTahK+iKghthaM7p7n8KhAfgI3A [file] /uvlxiQ55mAM4/0u2EZZLPIA1r9PP1qKcz1geKU1UvbJ+b4+iZ+lining maker hand/Ws/nACFydqfi/Kiph2ILUVKxc [file] j/Maria Del Carmen+exDdCpaHK2FqEVFixGzog+u01WzEbO1s3/+W [file] Thor[employer] Horse Farm Manager/9jk1S4GGgvg6AcvUcdxcbOiByGRRBvuYPuJI3K6 [file] Partha+1hD4jtvMD5DQyRXK9gxQSUb7OmesOjThevslSOh90nWp+h/fz8rWRlitz/chzemlRY6ROFT+g7vOt qcZwL9kzQnjQzGdVahyo2X1JPQq6H7Se3tpyi+Z7IUhOETmclMvMtbfYYhK3HtNVOtiSTjYuzRZgg55/ pvtMZhpcp3CF/D4j0JuOJFDgpJ4OMYuZKaAc+ALeqK 6cZkk4YwuDRSlXRrtrx91x3CkJpv6USCh3nrp5EqUvdjkgrRtF4/ZPlGp+I6pBsPgwtodhs3i+R6dqon IsKkrMf7LfszHE7ICtsKYZWW0BAT/sKkwjDVicQRVzW0XHnZ8CXtoKUwkGLPr4OAwVEDSgFXBNoWxKwR FatA2eQabAKz3LDruO/zzAri2fVfZOWGT0ukoNjAjI mortgage assistant+bXdrbfGXsoX1ZfQgEz1mqZxG0A2QyZ62LsD//uYCkHPEwN0QDlg/KP/8L8d2Rg6t8wosPrxTvP4wv [file] /3tYVSljDGfxvq0Qz3R+rolmPjjzONtn8+on2Ayfxi7M5VxVK8ZO52caeMxOG6Dk4/aRFAdJk/phone circuit operator/0N8 [file] uRCr7t7MWdro4yeD35H+fhom7kiO4f6ald66g4W+clinical evaluator [file] Ixmkql1W+vYT3+9z+metal flooring installer/AoNmOpoKmHaGtioYTndkHQ7cmXxkK5kzuL2KJMWYCnRgUTProugjidY40uz QEFU7pDgyh0SwKIWcyPCveeBsgFut2CAO6uBVjBYd3 CewGEX1xcG4nc0DW5irXaFcixcMv0vlWgSIwoabgJ1O3dM+tUEdKePCD9efQjVvRJgwCEhLmg86s/Elisa [file] XCM4dhUriM0ABZ0wz0TyFL4Ur3HlrlR0yfWpKVj5RCYmXMMFTsIaOJ1L ID Date Data Source [id number] 08/13/2020 12:00:00 AM EST [facility] Name Value Range Interpretation Code Description Data Marilia rce(s) Supporting Document(s) SARS coronavirus 2 RNA [Presence] in Res piratory specimen by JENNA with probe detection [facility] This lab was ordered by Tali Rivera and reported by [employer]. ID Date Data Source LIPASE 08/10/2020 12:00:00 AM EST eCW1 ([facility]) Name Value Range Interpretation Code Description Data Marilia rce(s) Supporting Document(s) 108 73-230 LIPASE eCW1 ([facility]) ID Date Data Source Comprehensive Metabolic Profile (CMP) 08/10/2020 12:00:00 AM EST eCW1 ([facility]) Name Value Range Interpretation Code Description Data Marilia rce(s) Supporting Document(s) 86 70-100 GLUCOSE, FASTING eCW1 ([facility]) 6 7-18 BLOOD UREA NITROGEN eCW1 ([facility]) 139 136-145 SODIUM LEVEL eCW1 ([facility]) 0.68 0.55-1.30 CREATININE FOR GFR eCW1 ([facility]) > 60.0 >60 GLOMERULAR FILTRATION RATE eCW 1 ([facility]) 4.2 3.5-5.1 POTASSIUM SERUM eCW1 ([facility]) 29 21-32 CARBON DIOXIDE LEVEL eCW1 ([facility]) 106 98-107 CHLORIDE LEVEL eCW1 ([facility]) 9.0 8.5-10.1 CALCIUM LEVEL eCW1 ([facility]) 62 45-117 ALKALINE PHOSPHATASE eCW1 ([facility]) 15 12-78 ALT/SGPT eCW1 ([facility]) 10 7-37 AST/SGOT eCW1 ([facility]) 0.7 0.2-1.0 BILIRUBIN,TOTAL eCW1 ([facility]) 6.9 6.4-8.2 TOTAL PROTEIN eCW1 ([facility]) 1.3 1.2-2.2 ALBUMIN/GLOBULIN RATIO eCW1 ([facility]) 3.9 3.2-5.2 ALBUMIN eCW1 ([facility]) ID Date Data Source UA URINALYSIS 08/10/2020 12:00:00 AM EST eCW1 ([facility]) Name Value Range Interpretation Code Description Data Marilia rce(s) Supporting Document(s) UA URINALYSIS eCW1 ([facility]) ID Date Data Source URINE CULTURE 08/10/2020 12:00:00 AM EST eCW1 ([facility]) Name Value Range Interpretation Code Description Data Marilia rce(s) Supporting Document(s) URINE CULTURE eCW1 ([facility]) ID Date Data Source CBC with Differential 08/10/2020 12:00:00 AM EST eCW1 ([facility]) Name Value Range Interpretation Code Description Data Marilia rce(s) Supporting Document(s) 5.5 4.0-10.0 WHITE BLOOD COUNT eCW1 ([facility]) 4.20 4.00-5.40 RED BLOOD COUNT eCW1 ([facility]) 12.0 12.0-15.5 HEMOGLOBIN eCW1 ([facility]) 89.3 80.0-96.0 MEAN CORPUSCULAR VOLUME e CW1 ([facility]) 37.5 36.0-47.0 HEMATOCRIT eCW1 (formerly [facility]) 28.6 27.0-33.0 MEAN CORPUSCULAR HEMOGLOB IN eCW1 (Formerly [facility]) 32.0 32.0-36.5 MEAN CORPUSCULAR HGB CONC eCW1 (Formerly [facility]) 70.9 36.0-66.0 NEUTROPHILS % eCW1 (Formerly [facility]) 260 150-450 PLATELET COUNT, AUTOMATED eCW1 ([facility]ly [facility]) 12.5 11.5-14.5 RED CELL DISTRIBUTION WID TH eCW1 ([facility]ly [facility]) 1.1 0.0-3.0 EOS % eCW1 ([facility]) 3.9 1.5-8.5 NEUTROPHILS # eCW1 ([facility]ly [facility]) 19.7 24.0-44.0 LYMPH % eCW1 ([facility]) 0.7 0.0-1.0 BASO % eCW1 ([facility]) 7.2 0.0-5.0 MONO % eCW1 ([facility]) 0.4 0.0-0.8 MONO # eCW1 ([facility]) 0.0 0.0-0.2 BASO # eCW1 ([facility]) 0.1 0.0-0.5 EOS # eCW1 ([facility]) 1.1 1.5-5.0 [facility] # eCW1 ([facility]) ID Date Data Source AMYLASE 08/10/2020 12:00:00 AM EST eCW1 ([facility]) Name Value Range Interpretation Code Description Data Marilia rce(s) Supporting Document(s) 37 25-115 AMYLASE eCW1 ([facility]) ID Date Data Source [id number] 08/02/2020 02:48:13 PM EST [facility] Name Value Range Interpretation Code Description Data [facility] rce(s) Supporting Document(s) Progress Note [facility] XKQPTw4lVtQUCsYb57/FAUdeYPEsw7CoZPqmAVt1OEifMLClU9UwSFR4zN4pLKR0TCkYWtPxGgSeQRBy lbm [file] AgICAgICAgICAgICAgICAgICAgICAgICAgICAgICAg CHXaQJAqGIQzPKAaRQChXLOcTVMkMLRqXQEpUACnQXCoGDPqAIUkCM8DWTIoPCYrNXDdUKJeIJXoOYKo ICAgICAgICAgICAgICAgICAgICAgICAgICAgICAgICAgICAgICAgICAgICAgICAgICAgICAgICAgICAg QKFeNLUzKCHlHMHoRNLlJJMzZYFuLC9XQHKbQLRjAT AgICAgICAgICAgICAgICAgICAgICAgICAgICAgICAgICAgICAgICAgICAgICAgICAgICAgICAgICAgIC KxUCQdGCLeMDRsVPTfQOQxFDEpEPCiZWBpVZOhKJWgTT5EJDNoERIkRLAjQIVuYBWjUBDpFFCqCPJgBA AgICAgICAgICAgICAgICAgICAgICAgICAgICAgICAg SNWgOALwMKYeEFGpAPJcFLHyLVGpSKYtAJMtFRWaSNYlSXWaHVYaQTKiLT8AQUZjOSDgXRBnPULrTSHy ICAgICAgICAgICAgICAgICAgICAgICAgICAgICAgICAgICAgICAgICAgICAgICAgICAgICAgICAgICAg GTZuXQJkSMNdGHIaLSKrZIPwUTZaISQgAX0LXNLoQQ AgICAgICAgICAgICAgICAgICAgICAgICAgICAgICAgICAgICAgICAgICAgICAgICAgICAgICAgICAgIC AaQSFdZLLcPTPiDWNoEZOeLWApNETiGUMrGLSgBAWiBBYnAT9USGTzSTLnKXKwRMLuPEXaCANxGVNeQF AgICAgICAgICAgICAgICAgICAgICAgICAgICAgICAg DBTuRJKnJZDuHDLuHGXmXKOmGAYzPLKyECQeCIBtRKDgCZYrSYLvSLSvNJDyAU7KOKXuUMTzPHNxNPEt ICAgICAgICAgICAgICAgICAgICAgICAgICAgICAgICAgICAgICAgICAgICAgICAgICAgICAgICAgICAg UQXmUSRnAPOaOLTmKQDcTLGtGQFvUPPyOHOdZP3TYP AgICAgICAgICAgICAgICAgICAgICAgICAgICAgICAgICAgICAgICAgICAgICAgICAgICAgICAgICAgIC TjYLNjBNKfTEJkDORsVZNrMHQnFNKkWJWcNLEbRBMzABRsJDGwYD3VLNVfLEJmRNTcFCPbOZFdWEMdKY AgICAgICAgICAgICAgICAgICAgICAgICAgICAgICAg TAYcKUNlOQMdXSCjZFSmLDDwZFEnHSLkOMRwSFOfHLFdAUBbOXJmLIHoQSFxPGMdIW0EBS88uRSqa3H0 NAJtSB9elue/Bu1VVTbwmeYwdWYjXJ8YWmEbVM0pqo0OKvHqYL1dcl0RZXdKSyTcO5E0rHJtVJKrCDYS HyRpA63kLHxnOm55JDmpMIJlGeYpJJx3Xg9OGyXpK4 puFSBcYtZ2SODqHjJjCTjzJI7Cs6FmrXYjDRa+Ua4WXT6aw2OkLOizSAEaMW1eqp9UNXcSUmAcG7Upki H6DODiRUFoAd5FNLGjPPUayNKbMEFxIRXJRgJlF7CocO09BVRIMb7+EXjtitArLqgHSxDzPRYqh5UwKZ u6IP5TBYAnPIs3lYZyITBzV9Jro1UuHi19EKXmHoyf ZKwejnHOAEqrEJUuNOCXPMCflIKiYK8kWv1cZEGrWQReVsW5DGGTNZ3LMFYuFFKhzNNsMFVyQXMUKO5I MHtfVQF5VEUuggXzkZKhARdcWG5AQDRecnHbEIdjPIWNNTv+Qz5ODM8pz5SfNCkoRMKmNO6ahe7DHIcL VoUhQ6D0hIYfV5L2XLcoSq4RQGRoLRXwVVvtKGUWGZ gfIE4BGW5ljyI0JQ2VwNZsOWEpBQVewVUxRZd6M50fbONcSZssHI0WQNZ+Erick+Gv3WGTWfWXTsLAGlRp UlTQTPTjNbC5AmC1EOs8QdC1JzYA61tNbnhwPoTScjIF4TRG4mAVMlPURWAM8BpUZbyK8vyrIdXHKvBR TOJoQvN96hoYQmKODvKSK4OTOzIf2ZWXIxE0OpytSk aAyilqRpXMYhJSRHLA0WKBkzxhKnfOBijCvkCC90bXsvLB4LQx4KSxBjLH5jhk3PrRKdLj6JMIVdIa7A LKDoILGmBGHvALP9QUOwCwGgYDojYYVtBMJfNDM1IEObHOOrFM5NUpInDQFuCIz6XmEzFPDgXFIphi3C TTOxGCPoYFL2QUTaPHEnPQKpATaaPHZiOBOhLAD9VP KbFALrSG7MAnAdGCRrCOT4TJJnLIZzELPbqx7HMLYvZRWzJfspKeIwQNZhSOSaRFnyWXFnZAC0TvA2PO JqCHZgGD7ZSvLpGCVeWFX0LkRqEUCfCEQblz1QOFPaJAKuEFC8RIKwXNVnMPBxYOkkMORwZTP5XBa8QQ GbYEByBT5KFmBlUHMgEUFnBDMoWSTtDPJzwi7PMZLt ZJCrVqI9FTPmFWVwVJLkDRrxLDJpLFT7EoHoENSeKIUgXP2DVnIyZFLuLRtcXCyhVWIgYSGdrh2IQWXx NRBkRVK6PBGjLDRtCYZgOXixIACvFKA5IXK3OCBvEXLbCU5TClWtCAVdPFw5VRCdXNUqDVIozn0ILJAn NXHoFLY9OCCrQZHkPLNwMUzmOYVrWTDrQPlfXXOsGA XfTG7BScZeMDVnCxF8HyTgNWOaJNMctg6ZYCHzCGNvAAzlXSBwHFNjGUNmQVp2uhNurZMmCNo2CW3CF6 TzmaBjDyHFSp6Wh427OYKfZSSgFm7SY4otTy4zPCVoPKDXCy5HGOg2VJOjGZAqNfKrQupyQTFuCATkQd beCsuzHzahBlI3Yok+TPqwWrLgXgCmAMSrCSQ8PtTx RxBeVMGgBMIrUVYwDiGmAA7zMAEEWd2+USpwbRZxqGgxKZFHBkHgSNB3DQvpLZAANq9R ID Date Data Source [id number] 08/01/2020 03:17:50 PM [facility] Name Value Range Interpretation Code Description Data Marilia rce(s) Supporting Document(s) Progress Note [facility] FRHDXq7vZlLODqWh11/DMVwhZVVtb4XeAXueKLs8PWamMFFqQ6NeCMH8mS6nYID0LPzGYcDnKfOaKGNf lbm [file] iCfX/wrecking supervisor+OiOCJ4U9ulsEJ8DNfqoXgITh55RMntKKN 9dhBEZM2GbW1yelfr6ODCaGyopoaWmcX1HWf7ZI7I/FsZeLhaOcRO3Wh87vtbY21j1Et4NA68T0C74lK zeUalm41Z8xFdtgaWXkGA2H0hSMNQFqZnuOJvrcxG+CIo5ztDR1QzLHXF42L5or+EhZasYXTqyrGQTED JQ+GsDDedpZ+PnePPgwHEkxEVyIMPiJRH5EH9qOYSM dc+bUIiI6nWm7V1jptrxV35jO1rBtYWsFSLRXsX0DWYfKm6gTgclscKvlsGiHnfPlaQ7AP5KK9QdACBj uCkLH/T3viyj7HgVSVjYvkDanPs9BGKJevw/c7BKMUZ45kyt6YfrAsn2zwo73Fe0YJWrSjnrvhlWfYcO qx6NDgRcQWXZ3A6e7fdL6cCkkrBhRnXAP/5FudU71P 4475FR7iKxnXOROGs73AKsbnMxawf9qhoypi8KivYkYd/x03hQYvMJdfAKJsl5XDrTtkJ1SUa/KPxkEf leonor/lnNP4sDzCBvJqdYde4LKXGHdOr6LXhJiqFl9S5iSeTHoMlqp3Vh+6e6HABPj2UMpWyviMMhS9YWr3 [file] FhFBqiFMNGBn1T ID Date Data Source [id number] 07/16/2020 12:00:00 AM EST [facility] Name Value Range Interpretation Code Description Data Marilia rce(s) Supporting Document(s) SARS coronavirus 2 RNA [Presence] in Res piratory specimen by JENNA with probe detection [facility] This lab was ordered by [facility] and reported by [employer]. ID Date Data Source [id number] 07/09/2020 12:00:00 AM EDT [facility] Name Value Range Interpretation Code Description Data Marilia rce(s) Supporting Document(s) SARS coronavirus 2 RNA [Presence] in Res piratory specimen by JENNA with probe detection [facility] This lab was ordered by [facility] and reported by [employer]. ID Date Data Source [id number] 06/30/2020 02:45:00 PM EDT [facility] Name Value Range Interpretation Code Description Data Marilia rce(s) Supporting Document(s) Follow Up [facility] XQOXFc2vCrQHUxBiGDRkJusZAEvxNJkfSDUwS7S8ICdmZx3EJLylnvJvBMXcUp3+SYAqYW4ife1vAPAc gMy 9bAGJiRzidG4RrFHZvx20CEELzWLxTReBdWwBiTBTlKRNoDkJ3ZUX6GfEvDfelQK2sIRE3JQDzIRslRG UzJXScTWK9AoW0OS0hUUawUXmbRe7NGF9wq4UcBRAgMNZlNxuCNPvfIZxgNMRoKUOzTFXrE570bbYuTX 2GhVNuOUu7NVTyDjZ1YAGrPgU1UETlMwJjEqCtDYMs B4Lvz987stWgyeT1GX8ME1PzHNI6OAc4H0vdNkQzYQZwJGEeDG4aUxY0IGQnTe2WuWqmMSZtWLDnGb2L pCv1RYV6PJTkBt7+Pj4+Av8tsrOqEzyFHZFkQT2yre61JJ5PpGDwEN8NEBwfL62uURxrBs16AFajNXCs OqEwMFb1Iu7oEzJvq1FaE4PzOFj9G6rZLjysF1YcJJ umYB0nCUU2DJTaVo3+Ru2hWDPbVM92NJNhUTZYK5UmymIjokRfPEl1BIXlQg3+Go3bynJhLmvGYKIvTL 4pwe22PV3QFR0mwIdpRkt0MWU5J86wlPEoO1hbQcOfP3TozGiuKNPtBW9cX5FkYHbkIOVuJW9weaFrrO 0YuRz9CSFkDp6EqOP3ACWrB01bXGGeCBTFWVFpr6Zu BL9Ar1ozagGpRUTbFD4VWWFlD0QDA2XkS8gbyGdfXKQcPY6MCZxiiVAjGRh1XP0RaSKkGDXbD41qrK9r CT92YAx+NfF5vnSqnB7VoIyur0EBXv/X73lw1+A9CZADSfl3jJO3WQY5ehHEebWRDE+dS1j3r2a2zHCS E4JM/o/sc0qroGRfpnie/s3lh42jg1e7z0v0R/fa3f 26/YhKoEUkDlCwZDGihtPndGDeokJUGRDxFNDB9y/MBoJiS5OLecDIWXCoXYK/W3RoiBAyU7MgkR/NzQ 5zBXTg0nJz1+Lm/FchcGhoaJgYmCRYWCScbynecv6/coumGQ6aNilBMbIuBtY7OlcVZvykOeALTYTzyy 8oBn6B8BAICFUPWAIS3EO+ZmjABcDDISDAIyIgISEi [file] TmZu1/p+yNEFOn1SPvMcpPo4eopwuNtWPK0/ETSqxzCzb6+zq2GX5DZ+yS3SapeBmlkFi/6C3f1m/district customs director [file] clinical evaluator+IW1u+SgGwfHrSzRxW54a60a/7Hgt17cIvsnPSpDRiruGLVeZSXmlmRuZe0+32yy3jbTTB72pkCQl2 [file] c3SRcayptF8yD0JStXOoil9HSo/VKQ+EhQVEuU0XWeJn65Mb1u9Bw1LXxl/xQrmtyn/WEB DEVELOPMENT INTERN/TuRwH7Jx+ [file] uZj6Nkv63St59K/F+Z/8r8V+a/Mv+V+a/M/5D5 [file] Hvs/groundskeeper porter+DerxuM/sBkenKa68xvkZ3QUcrefB7wnm/s [file] CeC9zrcX8Zij/tMlaFnXgIZovNSIirXe85gDShvj0epIGVFA/x/mechanical manufacturing technician//b/+KcH0dyyNdyF2k0jSJLloK e2iXN4xX1ZEkGUe2sjrvcet1HSIAr8z16WDmEoa7xGf3rKrj/dQ8FN+8mW4dgvtuLvLcbrzImnd5A0C1 ZH5E3SK5Cr4PXC7qwcxnhWRBQRRudyMXwAfon3v2+R HcJtQ4EXrllIzZT7RnTa0Hlvi1Spw+p9AlGFXGhjgu0ZGSrEu5+2vCy/B6uUZ1PypfbsjUFMRJDgEJbQ Wall/HmrePi2YEDIz4MGPYLfds5shXEjHSyEk/1/XuTUwRCt0ebqVd8MkXnP9WZ2FMMfjMBKSVlu6czoI [file] AUTO DAMAGE ESTIMATOR/PIPkbtLddG9yayJ/S374rhPJf3cZ2DXvmT7amPUhBDLGwjNjxfPEeangt/GA2dExQlLt1f5Eu+8wS [file] RMgHEjXlJYD7qrFoiK1WTN9au2QmYH1He1EzqgV1xkKsUAq7XowdXWmCEkLpMQ9B ID Date Data Source [id number] 06/25/2020 12:00:00 AM EDT [facility] Name Value Range Interpretation Code Description Data Marilia rce(s) Supporting Document(s) SARS coronavirus 2 RNA [Presence] in Res piratory specimen by JENNA with probe detection [facility] This lab was ordered by [facility] and reported by [employer]. ID Date Data Source [id number] 06/18/2020 12:00:00 AM EDT [facility] Name Value Range Interpretation Code Description Data Marilia rce(s) Supporting Document(s) SARS coronavirus 2 RNA [Presence] in Res piratory specimen by JENNA with probe detection [facility] This lab was ordered by [facility] and reported by [facility]. ID Date Data Source [id number] 06/11/2020 12:00:00 AM EDT [facility] Name Value Range Interpretation Code Description Data Marilia rce(s) Supporting Document(s) SARS coronavirus 2 RNA [Presence] in Res piratory specimen by JENNA with probe detection [facility] This lab was ordered by [facility] and reported by [employer]. ID Date Data Source [id number] 05/28/2020 12:00:00 AM EDT [facility] Name Value Range Interpretation Code Description Data Marilia rce(s) Supporting Document(s) SARS coronavirus 2 RNA [Presence] in Res piratory specimen by JENNA with probe detection [facility] This lab was ordered by [facility] and reported by [employer]. ID Date Data Source [id number] 05/12/2020 10:00:08 AM EDT [facility] Name Value Range Interpretation Code Description Data Marilia rce(s) Supporting Document(s) Progress [facility] RXQVVu2aFnKNHzRg20/GLTewXZAtp8ApEZgiZSq9OTdgEMMqO0OwWDI9iN7hNSM0DYvGAxKdUuIlWSPk [facility] [file] LjKmHd7eUEAQKp0+NJqncVBywZjkOODHWlFtWIViKWadZRGBMk0S ID Date Data Source [id number] 05/06/2020 12:00:00 AM EDT [facility] Name Value Range Interpretation Code Description Data Marilia rce(s) Supporting Document(s) SARS coronavirus 2 RNA [Presence] in Res piratory specimen by JENNA with probe detection [facility] This lab was ordered by [facility] and reported by [employer]. ID Date Data Source [id number] 04/23/2020 12:00:00 AM EDT [facility] Name Value Range Interpretation Code Description Data Marilia rce(s) Supporting Document(s) SARS coronavirus 2 RNA [Presence] in Res piratory specimen by JENNA with probe detection [facility] This lab was ordered by [facility] and reported by [employer]. ID Date Data Source [id number] 04/21/2020 03:00:00 PM EDT [facility] Name Value Range Interpretation Code Description Data Marilia rce(s) Supporting Document(s) Follow Up [facility] OFBIDe5aEwSYIjYlPPXkEozRGJskRMusBRZyU4J0ZKhwJr6VZIoequXjQPNdAk2+NZEsHR2qjf9vXMPa gMy [file] Head Wood Grinder+wIenjSXM+2bPT+hT2W+7+QB510E58yQuP07oOu [file] 1M8LPsOgjF8Ra/xDl7iE2/mortgage assistant+X5T+TfcHK0lFfhixtlpoDo0aHyS3++jjTvXfBtTg3zlw/nk9uXt9xYU mp2XTJdRliL7JqtksiI0r4v8bFQjuPixWDMkj3D9OG LidEMG+O3TiJORH1ZOvGYJDVwokGToSXsyxFEizsZE1OIB3/QFAu4Sf5IohfTXkLqQcOHUWi1jTkNlj5 0Ap48TjO0ROyX7VYik9RuqSCiKekwPSmiet9O1RdhY4splef5apx7r4io6BO2/pfQf7rYpsUWARCZgzg 88GMjeZb0KfP004sABXYOt4m05YgwuhvYLJ+0QgTqZ sPIrFKGZnx45uMQt6zsmhDVB1CCZQHvQAzCi0pNOftU/6pDq9qtGz30Jb6rHIKXsV816qcEXwuN6Ttb6 Y8C76wT9+mMKSvngYbNw01xc5Aok6SSMwEZtRmv0NzFPnJAImlaknwpKntj71NaFZ/JP2sOSRWPpJZ2X V/qK1cnWL9sDLuJo+RL9ocfqi7mXLm9U+AZakbC04C S8q2/mSmClxMDOdn3BmLte4xb2rKwfCK1g8uJ8ZdhAuelaFH2s1a/TqnG8szaZJ+q9uYINc5sU/FIrvH 3++QYy3ynW3e84x7sTHNUHo8mN055oNuBumuu7+K/sIqLY1l/Ztra+bgFBY7Z0rSmQ1TsC/gVYTf+Russel [file] IIX1OmorvYqvIZ2zM/zKdWVDgUprHPHaIrnYlwPsHaib2mODkX16nVdS2BEuiPrX1KAzeEjBdjpXo+clinical evaluator [file] M87SfCszZgSUO4oRo+tpp7vRtoV2B+AtckcGxjnT+tLCftZwuAnU+lJW0H4uvBDqdG8zTSXlBcNa/salesperson household appliances [file] boNnwUNVZCHJpXYhTyAOLLTUYCEkBbxWcCdxxsrHcG X++efnOOh0pktK+36LBLmwJpWP54/m3Vp6QeTg1WooajdOtWUTlblaNbYmoFqyNx/ldF0P+x/2P/W1iZ xrMBCvUd/OQ2aqOZPKhIy2VHKIMquaoyrjb//4IxUSCtIjvVqgbKHEwrWzu/STplTOZMOGQSdaK7YTW+ 9x7MHh4uyPeJg9au4S2dQ0QFPkxRr4FM61cJqtJLLP F37bH+W+p3Z3YZxy34bqIMoSt+oQMIsi6fIfysHKZBE/v/iupeBDH3xkPLCTgDTFU3/qBocPlASNmymr bIv16Q2k7aKLvfHmp/PE5l4JahHgBMdJR3Y884p7zSvLbgd6xBn0BIYa31pcd0KCAHuduEbU2TFBkIJd Lrj8tqGyfjr64GdXkz1W8zFL6p0zgieUV7Nz45n6QQ BiLIN1Wspuw+QKXofZb9aIouRQZToND1v36FljvpXqXfDHQNQkE/2pNAE1kIHysvsR81kiEMoanLCsuO bcUfPzaYUoJnK/2jjOnfLNrs8OUNd6jU6k8jc6J00A+DPi6VkVtBhFSIS3osb6HoHlgy9a6UoMxQy9M6 NBEahUqAZ4NoWzy/zU3/w6muYrGg0GM4iUSCcHKXNE Trash Truck Driver+hrtd9xZj0O9/6rCU7QKAoqoNKSLmSvqOH6cou5WhpVqi8pj+pshnaU+DgIQpa6WerYt2kdYkr6/O [file] A/LxSkbU9CRv1SD7+LmilwT+[place] IRA/9KvJpnYXe9GSIhSLhytUau96i6O7w3262w1bh7BG9Uk7rSm8TpnL [file] iyAJvkQgOM/lClbiq7dkqZLa5nwyMvbr3BMS9PJ+clinical evaluator [file] Y+xtIT0ooYfS/7fVBfQLYo01g+evening or night nurse supervisor+rLs2zSM7Z7X9/J4/HClODbG7pcdWB40HgsnzrblwqY1I+/rYKY AyU8139E7MtEl04Qsr79B484kBnRQYyNoWW9+v4eIBmioqRUf3Gp789osIJ2bGwDmfVOFs2N7DYnp1EM PjXs4u1nDO6wd0msGwCzTnXxvb1qtbmZ7C8BAWns2Z /k4a9N7FPLNmLopfLVdcAYL178VzhdGRHc0e5rjwO8jW5/XTkpD8cmrB5q9MT7jphVgQrrsYnep24A9b qpvOkLaBkVyEz62cMKmJ+8Hp+7TKeT4FMnJzX2P358ECHO2UWeCZshKOAKRmThf3owD+WX0wBtKpJbzk 3KP89VYfi19DK6PwO6DinVD9rLi/360R6+marino/+HLlv [file] MVc0f1j5j48UmsVQol1tki4LARCU+Maria C+IV8BK4acKyf4ABilUJPqyRaFRoGBT5t1ME6o6VMTs1bFhVC [file] TI5JE0k/UnpZn+power reactor operator/kbXH62rJwXiDlbTBLKt6qr9o SyoXS+QQrfhssMHkEauebzXE4YqKktFAn5ojJNgJalp5gOGQsghkXpenyp1WP0EiAixpyqjbOjVMfL0h H+2jhSsx9SaP+WWgtjwp86mxh8Snigg+PlRyVmdHCYoXecrdJ6WfYn8P3pXbovzZAp1tGcvC9+jDaSkG Z+eTMl4N9LD80/zvYo8xakK038/I9jvgWf+f2W0fDK YAe7L+AOPARMgc7Mvm+p+ofDE5OjSz+92hI0ure8zSFJoa3e/CegXd2vBfAxkzBQV7Qn876MH612efk6 FOlH/VShenKWrdgUXfYO+vH2kbTNJO6AhKVGMjR2/exLt9Kbr/nQ50lWaFIhbVKzMnr85LU1qk07Z8Rs uZhAdl7/ui4IiWGD1mzimZRrhhCkVu75wQ7dDmi/l+ L/L2r8QIaY1FkdJdiUWWzUB47xAmYy/GESFL4u5Gpju5Q9T1th4lSFY1uajseqpeFGOQvTQyXtCpbBRk vir3hwiA6WCTXHWBy7Lj4qLPys37XZnjOVHxnhO61M6MbrIcZgiZHofYrgAB1l5BOpkY3EAu2HeMg5Go LtOq1QJew9PQ2BY5q+Y6tMHQlv99vjI95Rf5olWf36 wxJ07KElR52O2pIUpXaTv5vxmxGpkTIvZ99WAHBbzNv2uN0nWi9UqXC8o0RQ3KgOdhYpy+hFHtzW+51A i0bqH+77AL+F8Lw6AJzDBsx6FmskQOgNrGbqaxBRIT10hYK+uzlrECeTKUXMSBLxm+kJ1iAWQ4mDDL0F 3UUzQzgHsxIEFMVmw+5eM1tkdd/bkC56P5fLvIPEPt +iBxfoRqx1cLGuM11UDqRofvnRG5xL3/Jose+jrbqv13JX1iuZVTX3291VxM6veut5YO3LmhTv1ETBd/W [file] TvEZX4L5hhyNDoT/cellar hand/p7qE3rK62jbmjLWE+XSbBikH6IVRsUzoyY6JYi3s1C3Yu2lqm+/9Zc1U60 [file] x/SOCIAL WELFARE ADMINISTRATOR+8XW2fG9mzGNm9YUREVO4rkmTqwa7k9uXT0a0 [file] GASTROENTEROLOGY PROFESSOR/mhqPgvqwt8wC9C2EFlQNPd6zFFBGj3fE1eupEA0VLz/sDXpxS3A/SixXUgzXeSXnAyFwIcqzbaxT [file] Jose Daniel/X0X9Axl1UFNxikpXrnOMT2Q25UgEw3V3Kyh8Yyrgotxl51/hUSvb8+DvKEUntOa6P9mR5P+g9OvJ ZeLrwaHP1LXXmJ7r6Gzd3p7ckotbV3avv+icKq9GqT bEIzH8Q5trLxuI/Y3RGgymdykyUYru1t+KAl9GQjeZxyMR2qONK35hOvX4uJa2IF0xreASw+bSH9YiZ5 kYEQbQ9kigAFIewwBg7zFuxfi8D5d7YWuhHsChrK/3aJqxfSOmjFBShA0V1rHE7JHwwigDT2OBJa0L6C BxO0PV7ND2mLl96QVEVxwYYu9L4FS6EoyBZmFq0x+V rKVRMvteqoM4WquwB7thSplE4ltQ01mAVLBZYmi6obWwpTRdFoDfcAhpHEgn60FS9Kfwowncz2dXteny qrLHZI8ZmF4LXWCmb1zFd2qYaRRnh0J8yPwiRyA5slCxBQS93MXfpLCf3bnJf+wczGJjGrBTOjBhJG1i Sdr/1st0C9voQuxWVt8EkAN0XjFZIop20dlDFiNDPk teBpxHwl8DF23VrR3wd8LBqKUH0X7TsH6ytMT3jVsrqUHb3tET0OB/vYfx3Rd5KG3A6kk3nLYavdgCw+ MXADCC4ncg6hXKOAxyME/GRFEoRgUag5Z3fB9CdvtG7VY4Lhc40BhADM/9OX34kVLg1bmq0skiXSgllK FmVvxtWRwGYjU7xO6vStcsUrAW/55L96FjJ0VrctBL oiiAEDFvnoW4OPacyqExlic/uSgxetCP5HYKQEp/Grover+p5bAeuwiyrvbhz5vhogn0ECDA8to/MoZDk2o [file] lABo/DXwMthoZzZPAqm1TqMXe4kE2pXPrTAgdS+Luis M [file] DAMAGE ESTIMATOR/O [file] wmZFMzdst8NjNFwl6exUtG7+/DWqlV4cEIyGMm++partha 8/ad7EcvXnHSN9f/6LKR4YgNincQxIX8TSf1EP9CeTxQEudREgYn1ylwbthy2lLTIJ6dzWn09JtNUykk IlI8w6ebJAdIZeW6iv6NT7TNhe+7YRqUlE0+MkwBKRs53ATaMQDzBMtQZzpupDPPHpYTdzDDioVtRLzO VmRneiO9bumC2JC6L+MMs4VQB7FM0EARb+CEii+7Bz p5KnwWqrGty2UIVEjtwge6hLas/tHDx7/p6Bx433yqSYdwC/uaRHb4I5ttHVEkcablL894dbx1v9L7Bj PI4ph14cjmgSGaLPPN5qKgbiNSfpa+fFNz5qF8IZ/6l0IvhVFWvEiZ+oqVCzJQ/uRvV8cuwS51T7tvr4 lQRKwHuuYSC0rdF4sJkLqHMLzgLcM8ZHVpOL8wb3tg Z3Yqdy9xabbOG0S/78FHa1Dfb9G5G6hVpj/Av7/INsH5h9V54kzlTukv4Utw+yTdvczkZxz+2brXBvXu ll4J6UVQ7R92i1REDQtGbz31iIHgvEBENZJYwlHb/AW2RaSh18IU8VVPTAdp0G8cEUwgWbITUSvhxNsW L89o+mZJMscIk91tGtLtZ5AUKhPAAj5lGkzUG5Sr+s HUvL6zfBszCcp0w0U9c5RhTxpbHE3kIkJEDn9c3dkrIX8mjeoFNyclYya/ZdCoT9Ik8qYC3glCOAaAVh I6W0zqWrWS1z/RFAPDxfrpp9rektig45QVAbcOMJZ0zURvTk/6vlkD/cIsKHwv6rFqHE1Mp09kTDsLW7 L0rrq2zZpqukeE7g/hQ9GilaRSj0T6rUTZDMBgzskS nxfX533STQTrfiIs1bUWpREG5iqZXQp3zhYW03KYUAwOl94j8g80zuOxFPNTNvinwerzfY3uZ/l7/2ZB 2zPd0DHULL/QH2JqNSfnSDFEZ8kZuwQpJRHrEHWEv5I4Y1qM/xJkU7n7P9Gy9Ls0kyRlrDtOmgysyB4h v/NkhQjDnOHVi/98M7qVVgQ1770aZsIiiZfnSo4/ACCOUNTS RECEIVABLE ASSISTANT [file] en5LebFvbDFhX0B3aXbi06Snw6ehryQud3vGw885m/Ov5kTmh/3lnGf5FpTxPC4VaZ79iYy/environmental services project manager+P4Wm [file] iQVYcqzEFgnZceHIDDRcl9DMn6Vp8GCDNIT8Z= ID Date Data Source [id number] 03/15/2020 11:16:19 PM EDT [facility] Name Value Range Interpretation Code Description Data Marilia rce(s) Supporting Document(s) Progress Note [facility] TPZTHg6uGjZHYjZi94/VXPmrZMJtu8GmFCwsQZk0OXmrDXOrF1KnHRY0fS6eERQ7KZdZWzEiLzWlIjS6 lbm [file] AgICAgICAgICAgICAgICAgICAgICAgICAgICAgICAgICAgICAgICAgICAgICAgICAgICAgICAgICAgIC AgICAgICAgICAgICAgICAgICAgDQogICAgICAgICAg ICAgICAgICAgICAgICAgICAgICAgICAgICAgICAgICAgICAgICAgICAgICAgICAgICAgICAgICAgICAg ICAgICAgICAgICAgICAgICAgICAgICAgICAgICAgDQogICAgICAgICAgICAgICAgICAgICAgICAgICAg ICAgICAgICAgICAgICAgICAgICAgICAgICAgICAgIC AgICAgICAgICAgICAgICAgICAgICAgICAgICAgICAgICAgICAgICAgDQogICAgICAgICAgICAgICAgIC AgICAgICAgICAgICAgICAgICAgICAgICAgICAgICAgICAgICAgICAgICAgICAgICAgICAgICAgICAgIC AgICAgICAgICAgICAgICAgICAgICAgDQogICAgICAg ICAgICAgICAgICAgICAgICAgICAgICAgICAgICAgICAgICAgICAgICAgICAgICAgICAgICAgICAgICAg ICAgICAgICAgICAgICAgICAgICAgICAgICAgICAgICAgDQogICAgICAgICAgICAgICAgICAgICAgICAg ICAgICAgICAgICAgICAgICAgICAgICAgICAgICAgIC AgICAgICAgICAgICAgICAgICAgICAgICAgICAgICAgICAgICAgICAgICAgDQogICAgICAgICAgICAgIC AgICAgICAgICAgICAgICAgICAgICAgICAgICAgICAgICAgICAgICAgICAgICAgICAgICAgICAgICAgIC AgICAgICAgICAgICAgICAgICAgICAgICAgDQogICAg ICAgICAgICAgICAgICAgICAgICAgICAgICAgICAgICAgICAgICAgICAgICAgICAgICAgICAgICAgICAg ICAgICAgICAgICAgICAgICAgICAgICAgICAgICAgICAgICAgDQogICAgICAgICAgICAgICAgICAgICAg ICAgICAgICAgICAgICAgICAgICAgICAgICAgICAgIC AgICAgICAgICAgICAgICAgICAgICAgICAgICAgICAgICAgICAgICAgICAgICAgDQogICAgICAgICAgIC AgICAgICAgICAgICAgICAgICAgICAgICAgICAgICAgICAgICAgICAgICAgICAgICAgICAgICAgICAgIC AgICAgICAgICAgICAgICAgICAgICAgICAgICAgDQo8 F2snYYAiUMQsWX4iMOy6Dg8+NLiMDeXwKYW5okZnxV9EAR6oy4IiKUybOGLwn8HeZLd0KE1ICBEaFWdf YG0JDEzoai2NZOWgXVHxcJNBo5ltUjDtHBC7MSViKsclBR7DNJFbY6ewzjOsAMTmBQCTJKugYNLIRMhp DFRFKOXnAOHmDvIhFtRfAWHhZI8SXDQcS695kkRiBY 1LMu3ONgRyKK9ggi5EMyNrMPEhLuyVBdg3OTfjHK3IgBEqjWWsHIOfXCTVAxCaE8lgo7FwBhRnJZXLRH qwGG9Jl6FklSRzONh+Bu7APK2fv5AhALshATAxHZ8jge5LUMoSEqLzB0PwfImbUYAlm8qiHEWnJI7aeH ZrWZC4BLjapVJenof0KXSpFBJ0vC7oHLSJBYOdoMI9 BoIgElYzFVDwDWeuHJGFLGpFTqPsG0Zak8HtBjI2SKJvDkCuITsnVQLbJvM0IO29lFsfMX8BTEToIOFk YN83MXVfPMVqOz6AWt0OPaGmQF6vzr8XVcTrDFBxJiyKDdm9BRmvQK5CtRFzF3RjnVEez5tTJgVdH4NV FST2GVBjIq1UZAHiAbDxBQHzRVhjMV7cFNTrCTDLdQ mtmoY0DS9SDW1ncaEeBN7ZWwGxLw5jSj3HTwMlL1JsL6FvPYJrKTHOMRurFT4MJLgsOT9zPP7Yi2MLiX GisZ9wvk7QYEXfXLGfQspoos1SGrxfU9O4lHktSFVvWkOpXZJUVApmSC6CUGSkXCZ0NMUkFMUlVADOSv YrW29iCK4GQ6Hyv68yHfR1HSQqEiQwFQsySS47mMcw mxEmtRWanKsvOF7TBp7+FUouzjTcAhtWEzauLGZIAjJtElXPCtFeUZDwQCSzJCFhMpP5NgOsNh2WGVOg VYPbEOTlUjKgQVEjQNXfPDrtOHMhNAN8TVl7DULzERSxLJ7XYiTcOJPuQerzQNOfEMJpDSClni8UJEYz WLYjLTD5SpIrTSKfIWHfCFmqULZhCRU2VjefBVYnKW WhGK8NCeLiPFJyUTB7BfNiUOOpRYFgnm3CYXQyKPChFJK7WsAnWTMfNBTrWNggYEQlQBV3VyujUNOgWS KrFP6BUbIzMEVyYGP3BvQnTIScBQCuuw4YNGIfUYEhBiOrZICaWZKoSMBfUUifJSRtNXI8XOM7VQWxKI WeWJ2VCsCjKNKxOAU5LVSnIKHlTMWlql0SVSFcKXAb BKy3QDWtIWBzJCInFZsrSHMdIKG9OFo2AAOnGFVlEK0WZzGaTCUyUdHtKAJeDNGeDQTqsp4RQIUjMNUy STM2VFHaVMOmDGXpUSajGXDjIHQiBJZ3GEAbDVMjWU6OSqMnHQRfWiT4BGAoPREdCXTosg4YVMFrBXLd RFO3XYNoWYKuQYQyAPetQKOnJAXtTRhbLIDqXVWwOW 5BZaOlEDCkJkSfPWXyXBUcTGAtdo7DYFCtTQInTfDrABEcQIVnGDTbGCjoMTAzSXWvKWZ3CRUmERLgAU 9FJdCnURSyVlPoVDdkVDIoRVQdxd6FGAZlPXUjHMK5KuOmGSVyXXLjUPllVLUoYZZ1YDx0DDYrLRQrUN 2ICaXmJWYtXxQaPsCpVYVlYOYjlo2XNRLkBKOpTOI4 OwFcZTSpAHRyIShkAWNjABX8GKrdEWMbSWPmKE1RYhMzFKHsFtb9FuGeIIJqAZSykj1TZTCkGEXwNzFh JEZaMNAdMNIjHZfuSNEcALL9IyZ8RPSnMRJiKA6PJfZjKMjsAQWQYqo3GEseC5j6TTAsWx3CR2Cwk9Ib JnWgXEUTIZajAL0iiiPxMAYxPi1IQ2pDMcs1EFDyYX HeU3V5SLWiNVO8FMD7UYLlAkIkJnFoRZP5PT3cAEvnVJEuX5TxTSd6FZNyUMo8OZdxVPCoXBG1J8XuJb WdQmCwPM8RYt1XPsZ5TGU8nJYyJw9LQmm5ENXISyMtUW8FUSa= ID Date Data Source [id number] 01/16/2020 10:10:00 AM EDT [facility] Name Value Range Interpretation Code Description Data Marilia rce(s) Supporting Document(s) SARS CORONAVIRUS 2 RNA [facility] This lab was ordered by [facility] and reported by [facility]. ID Date Data Source [id number] 12/31/2019 01:45:00 PM EDT [facility] Name Value Range Interpretation Code Description Data Marilia rce(s) Supporting Document(s) Follow Up [facility] OBASMr0qSyMZDrNaSUSsOcpYZUgoTRinSQBzE6R2FEngPy7BUPvnfySsMMTxYi9+DQZtJI7skj7yDWWo gMy [file] Blu+OPDlPl8XED1Dd7fGk7kf6LEx38akHffaVDHliJRS/3XISZsuCpHeBJ7bT87pOpZbcyK0jybRWUysk LlR3xLi6+pM7wl1R5soTmw3MieUiLvgCAVPL1ikbp0 PAUnR6Uy1ko/AZnzmIituWs5CyNuxrBXQiyMYcLly3h1oNKrl7/a8a+9Mr4r7cpjFJ6AmQW11hAURaOA Hes5zIFZRnoMAi43outLG7gaxv0o+Mx3UwWnund/Izm8Xd46ZRgLvpf0Y1blt2rWjkm8oTwSX0PmhG6m aeiuKUdj+7j0540nwl+x/PYP3lMfF0QBwngQ6d4ekQ q0z0wRdHw78WtKI1dR8lJF76Vj5vElF7N+sloFGfzCWhnGyJc/jYETo21TF47lSMGTS1XMd4JUvnB0u/ UNP/ovIwpM+uXoqgo22ZC1yr/JgAK4D0amj8rnp111GxUm+sNvHX8krT1RbE1Y95YDanSua2nbnvlCPO gS25IOVhDTvTodRAp4CeS7x5du8Vycq+fyTZOl0F/W SZkLZ4CbCICjPEhcy52d9c2BGK3oNyYXWj2Uk2RKzLTqTP8s+BPSnYSx2FcFeLidwnEy0gbJOqkg5Cuf xQfrcOkhIwsXjw1G3DeBzbT3/7+THPdJ5Q7Zpeu2wvT4ARK1ySyJiH5WF9C6dlwYmuo97ukyPxZDK/Qy GFEmyrg+n+/33r/uXXf9/c1iqpQ0wu8+3s/7dc7Zz+ 3jWzICc6LMKSX4zyba17atlHAh6bMPXORv3/WE0SZ/f9doOZflafnjXE8x8AUJ7s7Tc99dfl3nm3oFka cellophane press operator+9MrU3K6zeUrFimqBcyS/kGtnAXtm+pG9XyCW7lLyPJkQVnQRwq/0aV1IdEepOyI8RTi6+GxuSvrp [file] scLQEGZJEDOltonXjEArMD5XuKSCNbEGPQExe5SEFv YaoUJs4PHQKhEwPutUBIgVLY0dTfVIoD7gdnaumbs+q9N/Dnd7trxt+p6qa9yG+an5hfkamvQ+/JOSE A/+ [file] die 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 operator/z72ldoVpCymtNrD0Bq8JljzHq4ycm7xAsip3zxNjw3078k6uzlaqRyRXsm72c/hvFjN5/iNwVogI [file] cHwnmboSstU5XE7Pr35/mortgage assistant+LFoKronmzS68Uk2XoCS8jQ7alGcmSF3rlZ9iSqfjFZYoRkua323Hhvfg6 [file] dJ1QCg1dHkyPPvkPueuEHSGi/f1/AUTO DAMAGE ESTIMATOR/QsBVOMeO3+L H4NhPZfBWuryu4ONjtXLx7LPr9s7MgaCQyGPK45DX9WXkp7XR/kGKjoivqqP3b/djRcBrjZvEBZCRdOD QxicnbNnVPUrDxlKMI0BKTuXV8RRxFvCKyUQSnw3qTzy7LRfMyoJtnU6LbgWXtaotjcX2WSzgle3EkjL GdQ33Dk+s20CeI6ggO5GrJ/1nMiBI9DH1R04mXu/6G MbGDyPvulq6pUdp4+eC1ZKXSgk4K+3tnD/fysVftXldgUORlLp+YKRUwukKZK/5ct/B0vIth3fQTXbGz F1TaO3nRbKBrgly9c6v3IzM+WkQFmjG+ni0SjuKM4fKC8Y/GTJ2atAk1hCxMJPXCX7Fa2NcIs0VDAbrJ PrHtCLieGY+GvCPv6y5urplZH+q06O+R7ttLH7QAnW /kMBkMHM1iIdul+A16RAQmVqpNzo5adt5ClfkyUC1ZNlKghd0RKf0ZRGdnVWkGvpTmx9w0n7J4Vo2Dzg UP46ttsd3lcbk7nttDTzmXNyOKnnSycmIQi0C/XNdUY1/9TYRevv3EVwQtbvwYhdUpKdRpBLQv0q10v0 MxpQ9I2W7IVLui2MzdmGk8KjaCsMKgFm45HjRYP5rm v0+86XlHvjXEm+A0oJM/VWOo4I3hQfFQ2Iv1Bk53mKL1s6QFuBRZ+MyFyr3TZcdf9dkmjpvMj2RnGrT3 TdcXyhH1Xe50WdTv/Purcell/R5KyAGUtcVLFK033ozySqVrmPW4VAS5gmqNVnfu8EkQco/+12e9QhD6L5bxV [file] ViDCkBcSXj0Yl9B70OWKBxqnDgDu459sc5/JOSE CARLOS/BNoCKMHhBgq76E44cpYtshREqVq6dFZq1s2Ywt/fP [file] 9Ba8k0CqZplRPLTcHiftR4mMHUrJKgFXEvMN/+Th[employer] Horse [employer] Manager/qv0YNxsBBG/VI37c+zShxqNHKr8YdwI8+gWM0VE [file] cgtbIVuW25g8PPx1ELYYRxXET4ZfI7ifEL2aoB4O0h4MhxMg++6sA9oOrX6V/aDCp0U4uLNHqEc6/Juan José [file] jsIsL1ZTu5l8MwMOUvg5CnRbmB2+cellophane press operator+LC7qxIZ5GLJIqwceMkoaLeCqMfW7Am4z/oqFiQsEkTXwtTA1 PH9I1zhVqCjBvlTpmleTpmI1Dynr3SSRc4wGzDzh14F4bvdwBeDMcbTSZUfRB010GucrSUgextdbB9M2 LfJf5s4ldQFSj6aBsHreB2bHVBINvxW6EUGCzgmtXb 3+FAsw8v4IyWULkWsPNdVFlAp16rLPo1z5dtIUE+J/3kqANkSTHJ3D+Dm5n/RbGmNRHXBqVhZBA2coVr zB8udoSsNzeCMHNdZSQpVkvPHBktMTYoU0ZaOZYuCt8aiZMzSU7NOkDIEpEcZBCsZYP8WKSvEAQtFQQp Vk0EsOr2JIHlNaMRXsVjVYY1apFxrE1qqbKrAgxYZS VmTMJhLleLVLptHemouWIoVS8JsHQ1RCReM75uKX2LJE4ccElwJcqkPGHmGhxKHBMPNVhUYDqYUKsLVP IjDhrDMjAcB8K8ADOWVEZHTm2lUOIoYdP3XEK8MULZR7PTIcIaASNpGvNVLFFYXADAHRJZOp2cUj0qwO RtVGUgCi8VyhJzZZBeMNPEQ3FbjrIkTFtaOVbzBYNh OEZqLn7RXBcbFDGcWN9+UyC3kvFidA8KxQvhZNHnOZOtYOTsKORKPU0ViWsTDHRcsMVdaLyJf3YkwcOT jFfGUZsVqLtIfnvXA3krD4T0rAQoxafw9pZeXeJrHwNLBFexeuJeuCRyFU0OZsDqTX7abe0OFoT9FOD0 jKYcHn2MOJt2SrT0ZXncEQYIRb== ID Date Data Source [id number] 11/04/2019 10:39:[address] [facility] [place] Name Value Range Interpretation Code Description Data Marilia rce(s) Supporting Document(s) Progress Note [facility] NJEJBt5oPbHEIgHa45/CZLcwTWBie1TqOCirNFx2QWgcDNIkV2FeDLF2tW3eQSB0UZjPVrVpDvDuErT4 lbm OwPtbEAfZmIMJcVeaZEoBhUKbbFsctcSZnRI3AeRT0UIMbW21vWORrPBFhE3TqLTLmCDu+Id5PFTYcnO NsUL3XNtyY6T5ik1zAZm/emf4PN+19rJC5HZoqgh80nFCWEsxMNZoOb+1DIiXlzrLodUKA0k1giIvNVt M/a2JBoQcpt6Om30D4m1r93vyVZ/d80coVnfZ0MaW1 /byljhl66vddN5aLnZU2sYi/qrljJjtQLyL7iW4pdH++1Esypn44CWliRPgzG5+CGDUEf8OTnKW92Xfv yJCa52KZ9nDUcwqn+iX4JPUksml131tYlN3YFHTKhuDQs0AJc1MxRJtOKUkUHTN6YQq5DCERoJfYsc1e OLe1nvBfL881DjqX19LViKR8HEWxA7LHkCIEe7ROAF vBN1/bpM6xvx/NAK4T+t68F0lS79WSlLPBYt99yr6Csz32MHbveXGgyKCgBp681Eho9LIlaW/TasclTk u8PPE8DNl154Em6Oxz5D0wSLZ7fwBOHxHJoLfnpQK80Y31uVNnJ/5Ek2UuetiFlgvzepXwn/F6HR9vnF VQQ5gFZ23jNGtCyfnYwJSoiFwIF7YM3YRrHsFngVzH 8H6U0sxkomKdjDcuF+5l+l+58Td7TtheyFq9aWFdtk8Viq/jeDmZ/DLuduNqno4n94xg2afspOtzy5g0 oRF3yq7gvtMk6p100HlzflYoX7l4VQxdsKf5JM7n52mFv/jwESplAkgHuaXKmqJ6a8aH3yzUOllqozlC ZZ9LitysBftfz1sEddB5zOcHwOWOaF6CZlxdgDCtUp EIpihYaO51InLL2fHO/Rn9YifH779yEIaxG58kaoKH1fpOhrN1C50V7OgbEOG+WNmqbT17SJ/S0BKbll 6GlJjKgulWLYR0s0MnqYKalYCGmYtovflc4gFHunwIwGMlAve1JpFVcQlSYAxVNbJCeB7eBV2i58+h30 asJ8/AFP310bPvld+swYjpyEKYQEzLiX4i+2cdY+bean [file] AgICAgICAgICAgICAgICAgICAgICAgICAgICAgICAg ICAgICAgICAgICAgICAgICAgICAgICAgICAgICAgICAgICAgICAgICAgICAgICAgICAgDQogICAgICAg ICAgICAgICAgICAgICAgICAgICAgICAgICAgICAgICAgICAgICAgICAgICAgICAgICAgICAgICAgICAg ICAgICAgICAgICAgICAgICAgICAgICAgICAgICAgIC AgDQogICAgICAgICAgICAgICAgICAgICAgICAgICAgICAgICAgICAgICAgICAgICAgICAgICAgICAgIC AgICAgICAgICAgICAgICAgICAgICAgICAgICAgICAgICAgICAgICAgICAgDQogICAgICAgICAgICAgIC AgICAgICAgICAgICAgICAgICAgICAgICAgICAgICAg ICAgICAgICAgICAgICAgICAgICAgICAgICAgICAgICAgICAgICAgICAgICAgICAgICAgICAgDQogICAg ICAgICAgICAgICAgICAgICAgICAgICAgICAgICAgICAgICAgICAgICAgICAgICAgICAgICAgICAgICAg ICAgICAgICAgICAgICAgICAgICAgICAgICAgICAgIC AgICAgDQogICAgICAgICAgICAgICAgICAgICAgICAgICAgICAgICAgICAgICAgICAgICAgICAgICAgIC AgICAgICAgICAgICAgICAgICAgICAgICAgICAgICAgICAgICAgICAgICAgICAgDQogICAgICAgICAgIC AgICAgICAgICAgICAgICAgICAgICAgICAgICAgICAg ICAgICAgICAgICAgICAgICAgICAgICAgICAgICAgICAgICAgICAgICAgICAgICAgICAgICAgICAgDQog ICAgICAgICAgICAgICAgICAgICAgICAgICAgICAgICAgICAgICAgICAgICAgICAgICAgICAgICAgICAg ICAgICAgICAgICAgICAgICAgICAgICAgICAgICAgIC AgICAgICAgDQogICAgICAgICAgICAgICAgICAgICAgICAgICAgICAgICAgICAgICAgICAgICAgICAgIC AgICAgICAgICAgICAgICAgICAgICAgICAgICAgICAgICAgICAgICAgICAgICAgICAgDQogICAgICAgIC AgICAgICAgICAgICAgICAgICAgICAgICAgICAgICAg ICAgICAgICAgICAgICAgICAgICAgICAgICAgICAgICAgICAgICAgICAgICAgICAgICAgICAgICAgICAg SUj6D9grNDAaAHBgHG3kGXj3Hh4+RXySUpVfPRB3paDhhC8ZKG6aq2PtUCewHLWsb8JuBYa3HZ1LUXVo KLwfSJ5DTNtlxn2EGJNzERIulRSNr4edZnBtIUZ4PD TkQcboCE8DSJNeI6zkvjXgLZBgTABFAIwkFOUJGHpdWOOWWCOcNJCaGqGgErLnWXNlBA0ADFMnR287qr VnYO3HHk5UXxFiTR7mtx5RSxNwCGFeRmmIWrb0NPuiPT9TqGIcwSStFHYaLNLJZnEdJ7rcv9NtDtMeRE VGFFskDN3Xr1FonVMxZMx+Oc1NFC2xa0EaZMuoIKRf RV2rhh2SHOwYSoPxN5WzcTsiUIPdp1stOTYgKP2stIEtMRS5LWmmwCCaoxr3WJOgGYO6hN5pMHTXTABg fVYcMyZyWrBhJaAmIXK7KNTaEY0wYQecJQ7HURH8VNypZSYkAQQgW4sFNlJkEQYsVWFqhZquDM1UGoDy V8OjcwYaoHLrSALwTFUAXp6+DQplbmRvYmoNCjMyID Kru2JgBXd3CI3NSZIyUZecUJ5FWIMubS1jWPkdBU2VUaVoFWJxERLTMlZpB44ktASnUFp3Q7RtPcEdGY VkRmlsZXMgPDwvTmFtZXMgWyBdDQogID4+ID4+YSzlNB1DMKdmzmJkFDAdFu9GEWAtVVJrXW1mMWBqLV SvT2Q8lVcmMUOLBcUcM6yulgalYA6bJGEtY902qFjj btLxNPTiOUCcQa5DBVEjXFW1DRNzbSZsRjfuSBWMBAkiLV6MzTMhVHY8eW4dZTmzZRXuUWUjU5mEWxUu gZngZF39dSdnacLipFBiBBp+Dy5QJF1ta2GeLEs9noVkVZycBJNeNOfzYSOaYVXoRLLnQTL2FIV7MWLJ SnHpMRLnKGJbAGeaSJHuWCXcdg4AFQCkEPJoLVChJk ArJPRzVKMcNXjgKZWeGZA4RJUpZRWjOWYqAE2FEzQwDQYeJZTwSOxlPBLzWTLink3GLWRbSGLsXRHfKq EqEUJcYZXlVExmUADeAFU2XdOyXGJoEOAxLV2EFgGaEPEyQTi2WoKrMEAbABGppx8ZEIMcSMToWAG4Tr UjKECzDHNcWRxeKBBkERWyUUC6THAuRJQbPV5YMjAb GHPaTCM7DSGoOWLxGIXjyz6MSIYwZLQmYKHrROAePIUiVLLfUPqfXIVzBHI8TFD6TDOkCUQoQY0WTlYl QDLtXBo5ElxsUGGvWAShaz5JQSBtQSDdVHC6FFRgMTPqQYRgHAftUUDvUBG8QXC4KHHxVWQfJV2SViLv XOKzRZkaUMZnAZXpSQWuwn9JNGQxNEGqUOS6XKUmAS VcCZErXYdwUCUpSYQwDkN0PZKaELSuRC3SHrYiWOLqAlM9TXReZUDkBEYkan2LCQHeUQCeNGmiFGFsOI FpBKUeJKqiAFTqULDrFQQ5TTFoEHKuXR0EKiIpRRXbVwC3MEivTPOkDLMqtb9TFOUkWLOqQvM1FYJhDW MuXLSoWZikVQFyXHMdQDX7TSAhMOOzQD6RAoDcFJPy TvVhKIMmJBXtFFBmdt1XFFNaPWOjLBDcPYVlQLGoEVNaXFrwNXXsGXX8AxQ3HHMkDVGcTK9HZzCyQRPl OpV5FJLaCWKqBFTojd3OINLfADAfDYddBXChUAOqJISlPLduQQEeSML2Kba3QRFvMOIcSA8SPwHbVMNi ScEsGPGnBTIyXDPjyc0MBJSwSWVePjKgCQTtCJRhNF TiTXd4thRktIHqFMy1RV4AW4CoflHuOaSLYd1Cw080IIScFJUqFc7FO3zhTp3lZHYaQQZYPt0SYAr3XI nuWBHnY2VyQ2UmOMA9RKt8PSK7YaHrMfT1ILMoJEW+EBt1SRYeZFVvNJZ2WsEtVYgbJNVaIHKuMPC1DA I5QhA1XS9pYAYMXf3+PJevgHAkqFmiVDIHZxJ2FcPiYHufORHYXq7L ID Date Data Source VITAMIN D 25-HYDROXY 10/13/2019 12:00:00 AM EST eCW1 ([facility]) Name Value Range Interpretation Code Description Data Marilia rce(s) Supporting Document(s) 31.3 30.0-100.0 TOTAL 25(OH) VITAMIN D eC W1 ([facility]) Procedure Social History Code Duration Value Status Description Data Source(s ) Smoking 10/13/2020 12:00:00 AM EST Unknown if ever smoked comp leted Unknown if ever smoked [facility] ([facility]) Smoking 09/24/2020 12:00:00 AM EST Unknown if ever smoked comp leted Unknown if ever smoked [facility] ([facility]) Smoking 09/07/2020 12:00:00 AM EST Unknown if ever smoked comp leted Unknown if ever smoked [facility] ([facility]) Smoking 08/17/2020 12:00:00 AM EST Unknown if ever smoked comp leted Unknown if ever smoked [facility] ([facility]) Smoking 08/10/2020 12:00:00 AM EST Never Smoker completed Never S moker eCW1 ([facility]) Smoking 08/10/2020 12:00:00 AM EST Never Smoker completed Never S moker eCW1 ([facility]) Smoking 08/10/2020 12:00:00 AM EST Never Smoker completed Never S moker eCW1 ([facility]) Alcohol intake 07/22/2020 12:00:00 AM EST Ex-drinker (finding) comp leted Ex- drinker (finding) [facility] Tobacco use and exposure 07/22/2020 12:00:00 AM EST Never used co mpleted Never used [facility] Smoking 07/22/2020 12:00:00 AM EST Never smoker completed Never s [facility] Smoking 07/14/2020 12:00:00 AM EST Unknown if ever smoked comp leted Unknown if ever smoked [facility] ([facility]) Smoking 06/25/2020 12:00:00 AM EDT Unknown if ever smoked comp leted Unknown if ever smoked [facility] ([facility]) Smoking 05/26/2020 12:00:00 AM EDT Unknown if ever smoked comp leted Unknown if ever smoked [facility] ([facility]) Alcohol intake 03/15/2020 12:00:00 AM EDT Ex-drinker (finding) comp leted Ex- drinker (finding) [facility] Smoking 03/15/2020 12:00:00 AM EDT Never smoker completed Never s [facility] Smoking 01/19/2020 12:00:00 AM EDT Unknown if ever smoked comp leted Unknown if ever smoked [facility] ([facility]) Smoking 01/09/2020 12:00:00 AM EDT Unknown if ever smoked comp leted Unknown if ever smoked [facility] ([facility]) Smoking 12/26/2019 12:00:00 AM EDT Unknown if ever smoked comp leted Unknown if ever smoked [facility] ([facility]) Smoking 12/16/2019 12:00:00 AM EDT Unknown if ever smoked comp leted Unknown if ever smoked [facility] ([facility]) Smoking 11/24/2019 12:00:00 AM EDT Unknown if ever smoked comp leted Unknown if ever smoked [facility] ([facility]) Alcohol intake 10/30/2019 12:00:00 AM EST Ex-drinker (finding) comp leted Ex- drinker (finding) [facility] Smoking 10/30/2019 12:00:00 AM EST Never smoker completed Never s [facility] Smoking 10/13/2019 12:00:00 AM EST Never Smoker completed Never S moker eCW1 ([facility]) Vital Signs ID Date Data Source UNK Name Value Range Interpretation Code Description Data Source(s) Diastolic blood pressure 80 mm[Hg] 80 mm[Hg] eCW1 ([facility]) Systolic blood pressure 110 mm[Hg] 110 mm[Hg] e CW1 ([facility]) Body temperature 97.8 [degF] 97.8 [degF] eCW1 ( [facility]) Respiratory rate 18 /min 18 /min eCW1 ([facility]) Heart rate 80 /min 80 /min eCW1 ([facility]) Body mass index (BMI) [Ratio] 24.63 kg/m2 24.63 kg/m2 eCW1 ([facility]) Body height 65 [in_i] 65 [in_i] eCW1 ([facility]) Body weight 148 [lb_av] 148 [lb_av] eCW1 ([facility]) Body mass index (BMI) [Ratio] 25.3 kg/m2 25.3 k g/m2 MEDENT ([facility] ) Body weight 152.00 [lb_av] 152.00 [lb_av] MEDEN T ([facility] ) Body height 65 [in_i] 65 [in_i] MEDENT ([facility] ) 5'5" Body temperature 97.5 [degF] 97.5 [degF] [facility] ([facility] ) Body temperature 96.3 [degF] 96.3 [degF] [facility] ([facility] ) Body mass index (BMI) [Ratio] 27.0 kg/m2 27.0 k g/m2 MEDENT ([facility]) Body weight 162.00 [lb_av] 162.00 [lb_av] MEDEN T ([facility]) Body height 65 [in_i] 65 [in_i] [facility] ([facility]) 5'5" Body temperature 97.3 [degF] 97.3 [degF] [facility] ([facility]) Body temperature 98.0 [degF] 98.0 [degF] [facility] ([facility] ) Diastolic blood pressure 76 mm[Hg] 76 mm[Hg] eCW1 ([facility]) Systolic blood pressure 108 mm[Hg] 108 mm[Hg] e CW1 ([facility]) Body temperature 97.8 [degF] 97.8 [degF] eCW1 ( [facility]) Respiratory rate 18 /min 18 /min eCW1 ([facility]) Heart rate 102 /min 102 /min eCW1 ([facility]) Body mass index (BMI) [Ratio] 24.13 kg/m2 24.13 kg/m2 eCW1 ([facility]) Body height 65 [in_us] 65 [in_us] eCW1 ([facility]) Body weight Measured 145.0 [lb_av] 145.0 [lb_av ] eCW1 ([facility]) ID Date Data Source [id number] 08/01/2020 03:17:[address] [facility] Name Value Range Interpretation Code Description Data Source(s) WEIGHT RECORDED 167.4 lb 167.4 lb [facility] Body height Measured 64.57 in 64.57 in [facility] ID Date Data Source [id number] 03/15/2020 11:16:19 PM [facility] Name Value Range Interpretation Code Description Data Source(s) WEIGHT RECORDED 159 lb 159 lb [facility] Body height Measured 64.57 in 64.57 in [facility] ID Date Data Source [id number] 11/04/2019 10:39:[address] [facility] Name Value Range Interpretation Code Description Data Source(s) WEIGHT RECORDED 146 lb 146 lb [facility] Body height Measured 65 in 65 in [facility] Patient Treatment Plan of Care Planned Activity Planned Date Details Description Data Source (s) Levetiracetam 750 MG Oral Tablet 09/22/2020 12:00:00 AM [facility] Sulfamethoxazole 800 MG / Trimethoprim 160 MG Oral Tab let [Bactrim] 08/12/2020 12:00:00 AM [facility] ([facility]) Sulfamethoxazole 800 MG / Trimethoprim 160 MG Oral Tab let [Bactrim] 08/12/2020 12:00:00 AM [facility] eCW1 ([facility]) Sulfamethoxazole 800 MG / Trimethoprim 160 MG Oral Tab let [Bactrim] 08/12/2020 12:00:00 AM [facility] ([facility]) Sumatriptan 50 MG Oral Tablet 07/22/2020 12:00:00 AM [facility] Amitriptyline Hydrochloride 50 MG Oral Tablet 07/22/2020 12:00:00 A M [facility] Levetiracetam 750 MG Oral Tablet 07/22/2020 12:00:00 AM [facility] Ketorolac Tromethamine 10 MG Oral Tablet 07/22/2020 12:00:00 AM [facility] Sucralfate 1000 MG Oral Tablet 07/01/2020 12:00:00 AM [facility] Levetiracetam 750 MG Oral Tablet 06/08/2020 12:00:00 AM [facility] Ondansetron 4 MG Oral Tablet 03/15/2020 12:00:00 AM [facility] Riboflavin 400 MG Oral Capsule 03/15/2020 12:00:00 AM [facility] Sumatriptan 50 MG Oral Tablet 03/15/2020 12:00:00 AM [facility] Amitriptyline Hydrochloride 50 MG Oral Tablet 03/15/2020 12:00:00 A M [facility] Ketorolac Tromethamine 10 MG Oral Tablet 03/15/2020 12:00:00 AM [facility] Levetiracetam 750 MG Oral Tablet 03/08/2020 12:00:00 AM [facility] Amitriptyline Hydrochloride 50 MG Oral Tablet 03/08/2020 12:00:00 A M [facility] Acetaminophen 325 MG / Oxycodone Hydrochloride 5 MG Or al Tablet 01/28/2020 12:00:00 AM [facility] Protriptyline Hydrochloride 10 MG Oral Tablet 10/30/2019 12:00:00 A M [facility] Sumatriptan 50 MG Oral Tablet 10/30/2019 12:00:00 AM [facility] Ondansetron 8 MG Oral Tablet 10/30/2019 12:00:00 AM [facility] Protriptyline Hydrochloride 10 MG Oral Tablet 10/28/2019 12:00:00 A M [facility] Levetiracetam 750 MG Oral Tablet 09/04/2019 12:00:00 AM [facility] Protriptyline Hydrochloride 10 MG Oral Tablet 07/29/2019 12:00:00 A M [facility] medroxyprogesterone acetate 10 MG Oral Tablet 04/17/2019 12:00:00 A M [facility] Ondansetron [address] [facility]
[2020-11-01] MEDS ORDERED: KETOROLAC 30 MG/ML 1ML VIAL IV ONE (12:45)
[2020-11-01 12:56] LABS: PLATELET COUNT, AUTOMATED 233 10^3/uL (150-450)
[2020-11-01 13:10] LABS: ACETAMINOPHEN LEVEL < 2.0 UG/ML (10.0-30.0); ALT/SGPT 16 U/L (12-78); BILIRUBIN,DIRECT 0.1 MG/DL (0.0-0.2); BILIRUBIN,TOTAL 0.3 MG/DL (0.2-1.0); BLOOD UREA NITROGEN 10 MG/DL (7-18); CALCIUM LEVEL 9.3 MG/DL (8.5-10.1); CARBON DIOXIDE LEVEL 28 MEQ/L (21-32); CHLORIDE LEVEL 105 MEQ/L (98-107); CK-MB VALUE MASS < 1.0 NG/ML (<3.6); CPK CREATINE PHOSPHOKINASE 61 U/L (26-192); ETHYL ALCOHOL (ETHANOL) < 0.003 % (0.000-0.010); GLOMERULAR FILTRATION RATE > 60.0 (>60); GLUCOSE, FASTING 88 MG/DL (70-100); MB/CK RELATIVE INDEX 1.64 (< OR =4); POTASSIUM SERUM 3.9 MEQ/L (3.5-5.1); SALICYLATE LEVEL < 1.7 MG/DL (5.0-30.0); SODIUM LEVEL 141 MEQ/L (136-145); TOTAL PROTEIN 6.6 GM/DL (6.4-8.2); TROPONIN I < 0.02 NG/ML (< 0.10)
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
[2020-11-01 16:01] VITALS: O2SAT 99
--- NOTE | 2020-11-01 16:06 | ECGEPIP ---
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
[2020-11-01 16:53] VITALS: BP 125/75
== END 2020-11-01 16:57 | disposition home or self-care (01) ==
LOC: EDBD 11:21 → M ED 11:21
DX: T14.8XXA Other injury of unspecified body region, initial encounter (principal); S09.90XA Unspecified injury of head, initial encounter; S79.911A Unspecified injury of right hip, initial encounter; S89.91XA Unspecified injury of right lower leg, initial encounter; S89.92XA Unspecified injury of left lower leg, initial encounter; S79.912A Unspecified injury of left hip, initial encounter; S59.912A Unspecified injury of left forearm, initial encounter; V49.40XA Driver injured in collision with unspecified motor vehicles in traffic accident, initial encounter; R56.9 Unspecified convulsions; G43.909 Migraine, unspecified, not intractable, without status migrainosus; Z88.1 Allergy status to other antibiotic agents; Z88.8 Allergy status to other drugs, medicaments and biological substances; Z88.6 Allergy status to analgesic agent; Z79.899 Other long term (current) drug therapy
CPT/HCPCS: 70450; 72125; 73090; 73521; 73564; 73590; 80048; 80076; 80143; 80180; 82077; 82550; 82553; 83605; 84443; 84484; 85025; 93005; 93041; 94760; 96374; 96375; 99285; J1885; J1953

== ENCOUNTER 2021-01-28 19:12 | Emergency (ER) | payer OTHER, SELFPAY ==
[~2021-01-28] VITALS: Ht 165.1 cm; Wt 70.9 kg
[~2021-01-28 19:12] MED LIST changes: -SIME180C PO; +SIME180C25 PO
[2021-01-28] MEDS ORDERED: AMIT100TA (19:26)
[2021-01-28] MEDS ORDERED: CYCL5TAB (19:26)
[2021-01-29] MEDS ORDERED: LIDOCAINE 5% (LIDODERM) PATCH TD ONE (01:20)
[2021-01-29] MEDS ORDERED: KETOROLAC 60MG 2ML VIAL IM ONE (01:20)
[2021-01-29] MEDS ORDERED: ACETAMINOPHEN TAB 650MG DOSE (2X325MG) PO ONE (01:20)
[2021-01-29] MEDS ORDERED: GABAPENTIN 300 MG CAP PO ONE (01:20)
[2021-01-29] MEDS ORDERED: LIDO5DIS41 TOP (01:24)
[2021-01-29] MEDS ORDERED: PREG100CA PO (01:24)
[2021-01-29] MEDS ORDERED: PREGABALIN 75 MG CAP(LYRICA) PO ONE (01:25)
[2021-01-29] MEDS ORDERED: TYLE650T38 PO (01:28)
[2021-01-29] MEDS ORDERED: GABA-282 PO (01:28)
[2021-01-29 02:38] VITALS: BP 106/65
[2021-01-29] MEDS ORDERED: **NOTE PATIENT COMMENT** MISC XX SCH (21:00)
== END 2021-01-29 02:41 | disposition home or self-care (01) ==
LOC: M ED 19:12
DX: M54.16 Radiculopathy, lumbar region (principal); M54.31 Sciatica, right side; Z88.1 Allergy status to other antibiotic agents; Z88.8 Allergy status to other drugs, medicaments and biological substances; Z88.6 Allergy status to analgesic agent; Z91.030 Bee allergy status; Z79.899 Other long term (current) drug therapy
CPT/HCPCS: 96372; 99283; J1885

== ENCOUNTER 2021-02-25 18:10 | Emergency (ER) | payer OTHER ==
[~2021-02-25] VITALS: Ht 165.1 cm; Wt 69.8 kg
[~2021-02-25 18:10] MED LIST changes: +AMIT100TA PO; +CYCL5TAB PO; +ERGO500029 PO; +GABA-282 PO; +LIDO5DIS41 TOP; +PREG100CA PO; -SUCR1TAB56; +SUCR1TAB56 PO; -SUMA50TA2; +TYLE650T38 PO; -VITA50005 PO
--- NOTE | 2021-02-25 19:23 | REP ---
INDICATION: had screw in ring finger. COMPARISON: None. TECHNIQUE: Four views attention 4th digit FINDINGS: Two tiny metallic radiodensities are seen in the dorsal lateral aspect of the proximal phalangeal soft tissues of the 4th digit there is no fracture or destructive osseous lesion IMPRESSION: Tiny radiodensities suspicious for foreign body. Correlate clinically. <Electronically signed by Scooter Herrera > 02/25/21 [id number]
[2021-02-25] MEDS ORDERED: BOOSTRIX/ADACEL VACCINE (DIPHTH/PERTUSS/ACELL/TETANUS) 0.5ML SYR IM ONE (20:15)
[2021-02-25] MEDS ORDERED: ceFAZolin SOD 2 GM in IV 1 EA IV ONE (20:35)
[2021-02-25] MEDS ORDERED: LIDOCAINE 2% MDV 20ML VIAL SC ONE (20:35)
[2021-02-25] MEDS ORDERED: CEPH500C PO (21:16)
[2021-02-25 22:19] VITALS: BP 126/82
--- NOTE | 2021-02-26 11:34 | ED PDOC ---
Post-Departure Follow-Up dr parker and [facility] faxed formal report of left finger film for fu Esvin Kwon MD Feb 26, 2021 11:34
== END 2021-02-25 22:21 | disposition home or self-care (01) ==
LOC: M ED 18:10
DX: S61.243A Puncture wound with foreign body of left middle finger without damage to nail, initial encounter (principal); W29.8XXA Contact with other powered hand tools and household machinery, initial encounter; Y92.017 Garden or yard in single-family (private) house as the place of occurrence of the external cause; Y93.89 Activity, other specified; Y99.9 Unspecified external cause status; L03.211 Cellulitis of face; L08.9 Local infection of the skin and subcutaneous tissue, unspecified; Z88.1 Allergy status to other antibiotic agents; Z88.8 Allergy status to other drugs, medicaments and biological substances; Z91.030 Bee allergy status; Z79.899 Other long term (current) drug therapy
CPT/HCPCS: 12001; 73140; 87070; 87077; 87186; 87205; 90471; 90715; 96365; 99284; J0690

== ENCOUNTER 2021-02-28 13:05 | Day surgery (SDC) | payer OTHER ==
[~2021-02-28] VITALS: Ht 165.1 cm; Wt 70.1 kg
[~2021-02-28 13:05] MED LIST changes: +CEPH500C PO
[2021-02-28] MEDS ORDERED: ISOVUE-370 76% 100ML VIAL As Ordered ONE (14:49)
[2021-02-28 15:25] LABS: RSV AMPLIFICATION NEGATIVE (NEGATIVE)
--- NOTE | 2021-02-28 15:37 | REPVR ---
PROCEDURE INFORMATION: Exam: CT Neck With Contrast Exam date and time: 02/28/2021 1:17 PM Age: 35 years old Clinical indication: Other: Foreign body in lip; Additional info: Foriegn body TECHNIQUE: Imaging protocol: Computed tomography images of the neck with contrast. Radiation optimization: All CT scans at this facility use at least one of these dose optimization techniques: automated exposure control; mA and/or kV adjustment per patient size (includes targeted exams where dose is matched to clinical indication); or iterative reconstruction. Contrast material: ISOVUE 370; Contrast volume: 75 ml; Contrast route: INTRAVENOUS (IV); COMPARISON: CT Spine,cervical w/o contrast 11/01/2020 11:53 AM FINDINGS: Nasopharynx: Unremarkable. Oropharynx: Unremarkable. No significant tonsillar enlargement. Hypopharynx: Unremarkable. Larynx: Unremarkable. Normal epiglottis. Retropharyngeal space: Unremarkable. Submandibular/Parotid glands: Normal. Glands are normal in size. Thyroid: Normal. No enlarged or calcified nodules. Lymph nodes: Unremarkable. No lymphadenopathy. Trachea: Visualized trachea is unremarkable. Lungs: Unremarkable as visualized. Bones/joints: Unremarkable. No acute fracture. Soft tissues: There is a focal rounded 7 mm radiopaque density within the soft tissues of the right inferolateral left, compatible with radiopaque foreign body. There are multifocal soft tissue piercings. IMPRESSION: Radiopaque foreign body within the superficial soft tissues of the right lower lip. Electronically signed by: Sunitha Munoz On 02/28/2021 15:37:17 PM
[2021-02-28] MEDS ORDERED: LR 1,000 ML IV SCH (16:05)
[2021-02-28] MEDS ORDERED: DOXYCYCLINE HYCLATE 100 MG in D5W MINI-BAG PLUS 100 ML IV ONE (16:05)
[2021-02-28] MEDS ORDERED: GABA-282 PO (16:41)
[2021-02-28] MEDS ORDERED: CEPH500C PO (16:41)
[2021-02-28] MEDS ORDERED: propofoL 200 MG/20 ML VIAL As Ordered ONE (17:34)
[2021-02-28] MEDS ORDERED: fentaNYL 100 MCG/2 ML INJECTION (J3010) As Ordered ONE (17:36)
[2021-02-28] MEDS ORDERED: ONDANSETRON 4MG/2ML VIAL As Ordered ONE (17:37)
[2021-02-28] MEDS ORDERED: MIDAZOLAM INJ 2MG/2ML VIAL (J2250 PER 1MG) As Ordered ONE (17:37)
[2021-02-28] MEDS ORDERED: LIDOCAINE 2% 100MG/5ML SDV (FOR ANES.) As Ordered ONE (17:40)
[2021-02-28] MEDS ORDERED: LIDOCAINE W/EPINEPHRINE 1% 20ML VIAL As Ordered ONE (18:17)
[2021-02-28] MEDS ORDERED: ACETAMINOPHEN 1000MG 100ML IV BTL (OFIRMEV) (J0131 PER 10MG) As Ordered ONE (18:24)
[2021-02-28 19:27] VITALS: BP 114/75
== END 2021-02-28 20:10 | disposition home or self-care (01) ==
LOC: M ED 13:05 → M SDC 16:58
PROVIDERS: ATTEND Otolaryngology
DX: S00.551A Superficial foreign body of lip, initial encounter (principal); K13.0 Diseases of lips; Z88.8 Allergy status to other drugs, medicaments and biological substances; Z91.030 Bee allergy status; Y92.89 Other specified places as the place of occurrence of the external cause; Y93.9 Activity, unspecified; Y99.9 Unspecified external cause status
CPT/HCPCS: 10060; 40804; 80047; 87631; 88300; 96361; 96365; 99284; J0131; J2250; J2405; J3010; Q9967

== ENCOUNTER → 2022-07-02 | Outpatient (REF) | payer OTHER ==
[~2022-07-02] MED LIST changes: +ONDA-84 PO; -ONDA8TAB10 PO
== END ==
LOC: M LAB REF 08:18
PROVIDERS: ATTEND Nurse Practitioner
DX: K21.9 Gastro-esophageal reflux disease without esophagitis (principal); R13.10 Dysphagia, unspecified; R19.7 Diarrhea, unspecified; K58.9 Irritable bowel syndrome, unspecified

== ENCOUNTER → 2022-07-02 | Outpatient (CLI) | payer OTHER ==
[2022-07-02 10:44] LABS: C REACTIVE PROTEIN QUANTITATIV < 0.30 MG/DL (0.00-0.30)
== END ==
LOC: M RAD 08:49
PROVIDERS: ATTEND Surgery
DX: Z98.890 Other specified postprocedural states (principal); R19.7 Diarrhea, unspecified

== ENCOUNTER 2023-04-21 08:56 | Emergency (ER) | payer OTHER ==
[~2023-04-21] VITALS: Ht 165.1 cm; Wt 89.3 kg
[~2023-04-21 08:56] MED LIST changes: -AMIT25TA17 PO; +AMIT25TA19 PO
[2023-04-21 09:04] VITALS: O2SAT 100
[2023-04-21] MEDS ORDERED: RACEPINEPHrine 2.25% UD INHAL INH ONE (09:05)
[2023-04-21] MEDS ORDERED: KEPP1SOL PO (09:11)
[2023-04-21] MEDS ORDERED: levETIRAcetam INJection 1,250 MG in D5W 100 ML IV ONE (09:15)
[2023-04-21 09:21] LABS: BASO % 0.8 % (0.0-1.0); EOS # 0.1 10^3/uL (0.0-0.5); EOS % 1.4 % (0.0-3.0); HEMATOCRIT 39.7 % (36.0-47.0); HEMOGLOBIN 13.1 g/dl (12.0-15.5); LYMPH # 1.6 10^3/uL (1.5-5.0); LYMPH % 31.7 % (24.0-44.0); MEAN CORPUSCULAR HEMOGLOBIN 28.5 pg (27.0-33.0); MEAN CORPUSCULAR VOLUME 86.3 fl (80.0-96.0); MONO # 0.4 10^3/uL (0.0-0.8); MONO % 7.2 % (2.0-8.0); NEUTROPHILS % 58.5 % (36.0-66.0); PLATELET COUNT, AUTOMATED 277 10^3/uL (150-450); WHITE BLOOD COUNT 5.2 10^3/uL (4.0-10.0)
[2023-04-21 09:49] LABS: ALBUMIN 3.9 G/DL (3.2-5.2); ALKALINE PHOSPHATASE 81 U/L (46-116); ALT/SGPT 25 U/L (7.0-40); AST/SGOT 13 U/L (<34); BILIRUBIN,TOTAL 0.4 MG/DL (0.3-1.2); BLOOD UREA NITROGEN 9 MG/DL (9-23); CALCIUM LEVEL 8.9 MG/DL (8.5-10.1); CARBON DIOXIDE LEVEL 27 MMOL/L (20-31); CHLORIDE LEVEL 105 MMOL/L (98-107); CREATININE FOR GFR 0.71 MG/DL (0.55-1.30); GLOMERULAR FILTRATION RATE > 60.0 (>60); GLUCOSE, FASTING 95 MG/DL (60-100); POTASSIUM SERUM 3.7 MMOL/L (3.5-5.1); SODIUM LEVEL 142 MMOL/L (136-145); TOTAL PROTEIN 6.8 G/DL (5.7-8.2)
[2023-04-21] MEDS ORDERED: PRED20TA PO (10:28)
[2023-04-21] MEDS ORDERED: BENA25CA4 PO (10:29)
[2023-04-21] MEDS ORDERED: EPIP0.3I2 IM (10:30)
[2023-04-21 12:49] VITALS: BP 136/82; TEMP 99.4; O2SAT 97
[2023-04-21] MEDS ORDERED: PRED15SO24 PO (13:28)
== END 2023-04-21 13:31 | disposition left against medical advice (07) ==
LOC: M ED 08:56 → EDBD 08:56 → M ED 13:31
DX: T78.2XXA Anaphylactic shock, unspecified, initial encounter (principal); G40.909 Epilepsy, unspecified, not intractable, without status epilepticus; G43.909 Migraine, unspecified, not intractable, without status migrainosus; Z88.8 Allergy status to other drugs, medicaments and biological substances; Z91.030 Bee allergy status; Z79.52 Long term (current) use of systemic steroids; Z79.899 Other long term (current) drug therapy; Z53.9 Procedure and treatment not carried out, unspecified reason
CPT/HCPCS: 80053; 85025; 94640; 96365; 99284; J1953

== ENCOUNTER 2023-12-24 17:38 | Emergency (ER) | payer OTHER ==
[~2023-12-24] VITALS: Ht 165.1 cm; Wt 87.8 kg
[~2023-12-24 17:38] MED LIST changes: +BENA25CA4 PO; +EPIP0.3I2 IM; +KEPP1SOL PO; +PRED15SO24 PO; +PRED20TA PO
[2023-12-25] MEDS: KETOROLAC 30 MG/ML 1ML VIAL IM ONE (01:09)
[2023-12-25 01:13] VITALS: BP 125/82; TEMP 97.3; O2SAT 100
== END 2023-12-25 00:20 | disposition home or self-care (01) ==
LOC: M ED 17:38
DX: S49.92XA Unspecified injury of left shoulder and upper arm, initial encounter (principal); W01.0XXA Fall on same level from slipping, tripping and stumbling without subsequent striking against object, initial encounter; Y99.8 Other external cause status; Y93.89 Activity, other specified; Y92.89 Other specified places as the place of occurrence of the external cause; G43.909 Migraine, unspecified, not intractable, without status migrainosus; Z88.8 Allergy status to other drugs, medicaments and biological substances; Z88.6 Allergy status to analgesic agent
CPT/HCPCS: 73030; 73080; 73090; 96372; 99283; J1885

== ENCOUNTER 2025-05-11 09:43 | Emergency (ER) | payer OTHER ==
[~2025-05-11] VITALS: Ht 165.1 cm; Wt 84.4 kg
[~2025-05-11 09:43] MED LIST changes: -CYCL5TAB PO; +CYCL5TAB4 PO; +GABA-1172 PO; -GABA-282 PO; +LIDO1ADH93 TOP; -LIDO5DIS41 TOP; +PREG-35 PO; -PREG100CA PO; -SIME180C25 PO; +SIME1CAP4 PO
[2025-05-11 11:09] LABS: PLATELET COUNT, AUTOMATED 245 10^3/uL (150-450)
[2025-05-11 11:41] LABS: ALT/SGPT 26 U/L (7.0-40); AST/SGOT 22 U/L (<34); CALCIUM LEVEL 9.4 MG/DL (8.5-10.1); CARBON DIOXIDE LEVEL 27 MMOL/L (20-31); CHLORIDE LEVEL 106 MMOL/L (98-107); CREATININE FOR GFR 0.81 MG/DL (0.55-1.30); GLOMERULAR FILTRATION RATE > 90.0 (>60); POTASSIUM SERUM 4.0 MMOL/L (3.5-5.1); SODIUM LEVEL 144 MMOL/L (136-145)
[2025-05-11 12:25] LABS: HCG, SERUM QUALITATIVE NEGATIVE (NEGATIVE)
[2025-05-11 13:38] VITALS: BP 131/91; TEMP 98.7; O2SAT 98
== END 2025-05-11 13:39 | disposition home or self-care (01) ==
LOC: M ED 09:43
DX: N93.8 Other specified abnormal uterine and vaginal bleeding (principal); N80.03 Adenomyosis of the uterus; G43.909 Migraine, unspecified, not intractable, without status migrainosus; K50.90 Crohn's disease, unspecified, without complications; Z88.8 Allergy status to other drugs, medicaments and biological substances; Z91.030 Bee allergy status; Z88.5 Allergy status to narcotic agent; Z79.899 Other long term (current) drug therapy

== ENCOUNTER → 2025-08-02 | Outpatient (CLI) | payer OTHER ==
[~2025-08-02] MED LIST changes: +AIMO70IN2 SQ; +BUPR-69 PO; +IRON65TA2 PO; +ONDA-83 PO; +RIME75TA PO; +VITA50TA43 PO; +[UNRECOGNIZED DRUG - CODE] PO; +[UNRECOGNIZED DRUG - OTHER]
== END ==
LOC: M EKG 09:27
PROVIDERS: ATTEND Anesthesiology
DX: R94.31 Abnormal electrocardiogram [ECG] [EKG] (principal); R40.0 Somnolence

== ENCOUNTER 2025-08-12 13:32 | Observation (INO) | payer OTHER ==
[~2025-08-12] VITALS: Ht 165.1 cm; Wt 85.7 kg
[2025-08-12 14:37] LABS: PLATELET COUNT, AUTOMATED 270 10^3/uL (150-450)
[2025-08-12] MEDS: LR 1,000 ML IV SCH ×2 (15:20→22:34)
[2025-08-12] MEDS ORDERED: IBUP600T42 PO (16:32)
[2025-08-12] MEDS ORDERED: OXYC1TAB23 PO (16:35)
[2025-08-12] MEDS ORDERED: MIDAZOLAM INJ 2 MG/2 ML VIAL As Ordered ONE (16:51)
[2025-08-12] MEDS ORDERED: SUGAMMADEX SODIUM 200 MG/2 ML VIAL As Ordered ONE (16:51)
[2025-08-12] MEDS ORDERED: LIDOCAINE 2% 100 MG/5 ML SDV (FOR ANES.) As Ordered ONE (16:51)
[2025-08-12] MEDS ORDERED: ROCURONIUM BROMIDE 50MG/5ML VIAL As Ordered ONE (16:51)
[2025-08-12] MEDS ORDERED: KETOROLAC 30 MG/ML 1 ML VIAL As Ordered ONE (16:51)
[2025-08-12] MEDS ORDERED: dexAMETHasone 4 MG/ML 1 ML VIAL As Ordered ONE (16:52)
[2025-08-12] MEDS ORDERED: ONDANSETRON 4MG/2ML VIAL As Ordered ONE (16:52)
[2025-08-12] MEDS: SCOPOLAMINE 1MG TRANSDERMAL PATCH TOP ONE (16:54)
[2025-08-12] MEDS: ceFAZolin SOD 2 GM IV ONCE IV ONE (17:30)
[2025-08-12] MEDS ORDERED: KETAMINE HCL 200 MG/20 ML VIAL As Ordered ONE (17:47)
[2025-08-12] MEDS ORDERED: MORPHINE 2 MG/ML 1 ML VIAL IV PRN (19:05)
[2025-08-12] MEDS: HYDROMORPHONE HCL 0.5 MG/0.5 ML SYRINGE IV PRN (19:21)
[2025-08-12] MEDS: ONDANSETRON 4MG/2ML VIAL IV PRN (19:32)
[2025-08-12] MEDS ORDERED: VITA-113 SL (21:13)
[2025-08-12] MEDS ORDERED: BUPR-670 PO (21:14)
[2025-08-12 21:15] VITALS: BP 130/85; TEMP 97.5; O2SAT 96
[2025-08-12] MEDS ORDERED: HOME MED LIST COMPLETE! XX SCH (21:15)
[2025-08-12 21:45] VITALS: BP 130/82; TEMP 97.5; O2SAT 97
[2025-08-12] MEDS: levETIRAcetam ORAL SOLUTION 500 MG/5 ML UDC PO SCH (22:34)
[2025-08-12] MEDS: DOCUSATE SODIUM 100 MG CAPSULE PO SCH (22:35)
[2025-08-12] MEDS: GABAPENTIN 300 MG CAP PO ONE (22:35)
[2025-08-12 22:45] VITALS: BP 134/79; TEMP 97.9; O2SAT 96
[2025-08-12 23:45] VITALS: BP 120/79; TEMP 97.6; O2SAT 96
[2025-08-13] MEDS: KETOROLAC 30 MG/ML 1 ML VIAL IV PRN (00:40)
[2025-08-13] MEDS: PERCOCET 5MG/325MG TAB PO PRN (00:41)
[2025-08-13 00:45] VITALS: BP 116/69; TEMP 97.6; O2SAT 97
[2025-08-13 01:45] VITALS: BP 117/71; TEMP 97.8; O2SAT 95
[2025-08-13] MEDS: ONDANSETRON 4MG/2ML VIAL IV PRN (02:56)
[2025-08-13 05:30] VITALS: BP 109/67; TEMP 97.5; O2SAT 96
[2025-08-13 08:30] VITALS: BP 118/68; TEMP 97.8; O2SAT 95
[2025-08-13 12:10] VITALS: BP 104/59; TEMP 99.4; O2SAT 95
[2025-08-13 16:30] VITALS: BP 101/64; TEMP 98.7; O2SAT 95
== END 2025-08-13 17:45 | disposition home or self-care (01) ==
LOC: M SDC 13:32 → M RR INP 13:33 → M PED 20:55
PROVIDERS: ADMIT Specialist; ATTEND Specialist
DX: N92.6 Irregular menstruation, unspecified (principal); K58.8 Other irritable bowel syndrome; K21.9 Gastro-esophageal reflux disease without esophagitis; G43.909 Migraine, unspecified, not intractable, without status migrainosus; Z79.899 Other long term (current) drug therapy; Z91.030 Bee allergy status; Z91.018 Allergy to other foods; Z88.8 Allergy status to other drugs, medicaments and biological substances; M79.7 Fibromyalgia
CPT/HCPCS: 36415; 58571; 85027; 86850; 86900; 86901; 88307; 96374; 96375; 96376; J0665; J0688; J1100; J1171; J1885; J2250; J2405; J3010; S2900